=== PATIENT | female | born 1955 | race Caucasian/White ===

== ENCOUNTER 2016-08-03 20:58 | Emergency (ER) | payer OTHER ==
[~2016-08-03] VITALS: Ht 157.5 cm; Wt 105.2 kg
[~2016-08-03 20:58] MED LIST: ABILIFY 10 MG10 MG PO; AMANTADINE HCL100 M2 PO; AMANTADINE HCL100 MG PO; AZITHROMYCIN D250 MG PO; AZITHROMYCIN250 M1 PO; BENZONATATE100 MG PO; BIAXIN FILMTAB500 MG PO; BREO ELLIPTA1 POW PO; CARAFATE1 G1 PO; CARAFATE1 GM/10 ML PO; CEFTIN500 MG PO; CELECOXIB200 M1 PO; CIPROFLOXACIN500 MG PO; CLONAZEPAM0.5 M2 PO; CRESTOR 10MG10 MG PO; CRESTOR10 MG PO; DALIRESP500 MCG PO; DECADRON2 MG PO; DOXYCYCLINE HY100 MG PO; DOXYCYCLINE100 MG PO; DUONEB 3 MG/3 ML3 ML INH; ENDOCET 325 MG-1 TA1 PO; FLEXERIL10 MG PO; FUROSEMIDE20 MG PO; INCRUSE ELLI62.5 MCG INH; K-DUR 20MEQ TA20 MEQ PO; KLONOPIN0.5 MG PO; LATUDA20 MG PO; LEVAQUIN500 MG PO; LEVOTHYROXIN0.075 M1 PO; LEVOTHYROXIN0.088 MG PO; MEDROL DOSEPAK1 PAC PO; MIRTAZAPINE15 M2 PO; MIRTAZAPINE7.5 MG PO; MOMETASONE0.05 MG/Ac NASB; MUCINEX DM 30 M1 TER PO; MYRBETRIQ25 MG PO; MYRBETRIQ50 MG PO; NASONEX0.05 MG/Ac NASB; NEPAFENAC OS; NEURONTIN300 MG PO; OMEPRAZOLE D/R20 MG PO; PRED FORTE 1 ML1 ML OS; PREDNISONE 10MG10 M1 PO; PREDNISONE 20MG20 MG PO; PREDNISONE10 M2 PO; PREDNISONE10 MG PO; PREDNISONE5 MG PO; PREDNISONE50 MG PO; PREVACID 30MG30 MG PO; PROMETH/CODEIN120 ML PO; REGLAN10 MG PO; REMERON 15MG TA15 MG PO; REQUIP1 M1 PO; RIZATRIPTAN BEN10 MG PO; SERTRALINE HCL50 MG PO; SERTRALINE HYDR25 MG PO; SINGULAIR10 M1 PO; SPIRIVA1 PUF INH; SPIRIVA18 MCG; SYMBICORT 160/41 PUF INH; SYMBICORT 16010.2 GM INH; TAMIFLU 75MG75 MG PO; TESSALON PERLE100 M1 PO; TESSALON PERLE100 MG PO; THEOPHYLLINE200 MG PO; TOPAMAX50 M1 PO; TRAMADOL50 MG PO; TRAZODONE HCL100 MG PO; TUDORZA PR400 MCG/Ac INH; ULTRAM(MONOGRAP50 MG PO; VENTOLIN HFA18 GM INH; VERAPAMIL HCL240 M2 PO; VERAPAMIL HCL240 MG PO; VIBRAMYCIN 100100 MG PO; XOPENEX0.63 MG/1 INH/SOL; ZANTAC300 MG PO; ZITHROMAX Z-PA250 M1 PO; ZITHROMAX250 M2 PO; ZOFRAN ODT4 MG PO
--- NOTE | 2016-08-03 21:36 | ED DYSPNEA/ASTHMA COMPLAINT ---
History of Present Illness General Chief Complaint: Dyspnea (COPD, CHF, Other) Stated Complaint: SOB O2 97% AT [employer] Source: patient Exam Limitations: no limitations Vital Signs & Intake/Output Vital Signs & Intake/Output Vital Signs Date Time Temp Pulse Resp B/P Pulse O2 O2 Flow FiO2 Ox Delivery Rate 08/03 2321 97.1 88 18 158/80 97 Room Air 08/03 2155 95 08/03 2134 95 Room Air 08/03 2110 97.5 91 18 173/81 95 Room Air ED Intake and Output 08/04 0000 08/03 1200 Intake Total 0 Output Total Balance 0 Intake, Oral 0 Patient 232 lb Weight Allergies Coded Allergies: peanut (Severe, TONGUE SWELLING, DIFFICULTY BREATHING 01/25/16) pear (Severe, ANAPHYLAXIS 01/25/16) pepper (Severe, PEPPERS - TONGUE SWELLS 01/25/16) walnut (Severe, DIFFICULTY BREATHING 01/25/16) cefazolin (UNKNOWN 01/25/16) cefuroxime (UNKNOWN 01/25/16) ciprofloxacin (ITCHING 01/25/16) clavulanic acid (From Augmentin) (HIVES, RASH 01/25/16) doxycycline (UNKNOWN 01/25/16) erythromycin base (From Erythrocin) (RASH 01/25/16) neomycin (UNKNOWN 01/25/16) penicillin V (UNKNOWN 01/25/16) polymyxin B (HIVES 01/25/16) quetiapine (From Seroquel) (BRIGHT RED & ITCHY 01/25/16) wheat (WHEAT SPROUTS - ITCHY 01/25/16) chocolate flavor (CHOCOLATE - MIGRAINS 01/25/16) lactose (DIARRHEA 01/25/16) Reconcile Medications Albuterol Sulfate (Proair Hfa) 0.09 MG/Actuation CHRISTINA 2 PUF INH 4 TIMES/DAY ASTHMA (Reported) Albuterol Sulfate/Ipratropiu (Duoneb) 3 MG/3 ML NEB 3 ML INH DAILY PRN ASTHMA (Reported) Aripiprazole (Abilify) 10 MG TABLET 1 TAB PO AT BEDTIME ANXIETY (Reported) Budesonide/Formoterol Fumara (Symbicort 160-4.5 Mcg Inhaler) 160 MCG/4.5 MCG PUF 2 PUF INH BID copd (Reported) Celecoxib 200 MG CAPSULE 1 CAP PO DAILY PAIN/INFLAMMATION (Reported) Clonazepam 0.5 MG TABLET 1 TAB PO TID ANXIETY (Reported) 1 IN THE AM, 1 AFTERNOON, 1 AT NIGHT PER PT Levalbuterol HCl (Xopenex) 0.63 MG/3 ML VIAL.NEB 1 Vial INH/DOMINGA TID PRN SHORTNESS OF BREATH Levofloxacin (Levaquin) 500 MG TABLET 1 TAB PO DAILY BRONCHITIS Levothyroxine Sodium (Levothyroxine) 0.088 MG TAB 0.088 MG PO DAILY AC THYROID (Reported) Mirabegron (Myrbetriq) [address] 1 TAB PO DAILY BLADDER (Reported) Mirtazapine 15 MG TABLET 1 TAB PO QPM SLEEP (Reported) Montelukast Sodium 10 MG TABLET 1 TAB PO DAILY ASTHMA (Reported) Prednisone 10 MG TABLET STEROID TAPER (Reported) RANITIDINE HCL (Ranitidine Hydrochloride) 300 MG TAB 1 TAB PO BID GI ( Reported) Rizatriptan Benzoate (Rizatriptan) 10 MG TABLET 1 TAB PO PRN FOR ONSET OF HEADACHE (Reported) Ropinirole HCl (Requip) 1 MG TABLET 1 TAB PO QPM PRN RESTLESS LEGS (Reported) Rosuvastatin Calcium (Crestor) 10 MG TAB 10 MG PO DAILY CHOLESTEROL (Reported ) SERTRALINE HCL (Sertraline Hydrochloride) 50 MG TAB 1 TAB PO DAILY MENTAL HEALTH (Reported) Sucralfate 1 GRAM TABLET 1 TAB PO BID PRN GI (Reported) Tiotropium [place] (Spiriva) (Unknown Strength) CAP.W.DEV (Unknown Dose) UNKNOWN (Reported) Topiramate (Topamax) 50 MG TAB 2 TAB PO BID PRN MIGRAINE (Reported) Umeclidinium [place] (Incruse Ellipta) 62.5 MCG BLST.W.DEV 1 PUFF INH DAILY COPD (Reported) VERAPAMIL HCL (Verapamil ER) [address] 1 TAB PO DAILY MIGRAINES (Reported) Triage Note: REPORTS DIFF BREATHING WITH PERSISTANT COUGH. SHE TOOK HER NEB TX AT HOME WITH NO IMPROVEMENT. Triage Nurses Notes Reviewed? yes Onset: Gradual Duration: day(s): Timing: recent history Severity: mild, moderate Activities at Onset: none Prior Episodes/Possible Cause: occasional episodes Modifying Factors: Improves With: rest. Associated Symptoms: cough, wheezing HPI: 61-year-old woman history of asthma and COPD presents with 3-4 days of cough and wheezing. She states that she was started on Cipro and prednisone by her primary care doctor a few days ago. She's been taking these medicines. She notes that this evening her wheezing got worse. She feels like her cough has not improved. She has no fever chills chest pain or dizziness. She notes that she does have phlegm that's, "stuck in my chest." She notes that her lower extremities are not swollen. She has no orthopnea. Past History Travel History Traveled to [place] past 21 day No Medical History Any Pertinent Medical History? 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 No Review of Systems Review of Systems Constitutional: Reports: no symptoms. EENTM: Reports: no symptoms. Respiratory: Reports: no symptoms. Cardiovascular: Reports: no symptoms. GI: Reports: no symptoms. Genitourinary: Reports: no symptoms. Musculoskeletal: Reports: no symptoms. Skin: Reports: no symptoms. Neurological/Psychological: Reports: no symptoms. Hematologic/Endocrine: Reports: no symptoms. Immunologic/Allergic: Reports: no symptoms. All Other Systems: Reviewed and Negative Physical Exam Physical Exam General Appearance: well developed/nourished, mild distress Head: atraumatic, normal appearance Eyes: Bilateral: normal appearance. Ears, Nose, Throat: normal pharynx, normal ENT inspection Neck: normal inspection Respiratory: normal breath sounds, rhonchi Cardiovascular: regular rate/rhythm Gastrointestinal: normal bowel sounds, soft, non-tender, no organomegaly Extremities: normal inspection Neurologic/Psych: no motor/sensory deficits, awake, alert, oriented x 3 Skin: intact, normal color, warm/dry Core Measures ACS in differential dx? No Severe Sepsis Present: No Septic Shock Present: No Progress Differential Diagnosis: asthma, AMI, bronchitis, CHF, COPD Plan of Care: Orders Procedure Date/time Status TROPONIN LEVEL 08/03 2138 Complete COMPREHENSIVE METABOLIC PANEL 08/03 2138 Complete CBC WITHOUT DIFFERENTIAL 08/03 2138 Complete Laboratory Tests 08/03/162147: Anion Gap 11, Estimated GFR > 60, BUN/Creatinine Ratio 26.3 H, Glucose 138 H, Calcium 8.8, Total Bilirubin 0.2, AST 15, ALT 29, Alkaline Phosphatase 73, Troponin I < 0.01, Total Protein 6.3, Albumin 3.9, Globulin 2.4, Albumin/ Globulin Ratio 1.6, CBC w Diff MAN DIFF ORDERED, RBC 4.25, MCV 83.4, MCH 26.2 L , RDW 18.5 H, MPV 8.8, Gran % 83.8 H, Lymphocytes % 9.9 L, Monocytes % 5.2, Eosinophils % 0.2, Basophils % 0.9, Absolute Granulocytes 7.9 H, Segmented Neutrophils 82 H, Absolute Lymphocytes 0.9 L, Lymphocytes 10 L, Monocytes 7, Absolute Monocytes 0.5, Absolute Eosinophils 0, Basophils 1, Absolute Basophils 0.1, Platelet Estimate ADEQUATE, Polychromasia 1+, Hypochromic-Microcytic 1+, Poikilocytosis 1+, Basophilic Stippling 1+, PUBS MCHC 31.4 L Diagnostic Imaging: Viewed by Me: Radiology Read. Discussed w/RAD: Radiology Read. CXR Impression: no acute abnormality, no infiltrates, normal size heart, normal mediastinum Initial ED EKG: normal axis, normal intervals, normal p-waves, normal QRS complex, normal sinus rhythm Comments: PATIENT: WILLOW VILLA PRESENT AGE: 61 PATIENT ACCOUNT NO: [id number] : 53 LOCATION: [facility] ORDERING PHYSICIAN: KARLA CHEN MD SERVICE DATE: 08/03/16 EXAM TYPE: RAD - XRY-CHEST XRAY, PA AND LATERAL EXAMINATION: XR CHEST CLINICAL INFORMATION: Dyspnea. COMPARISON: Chest x-ray 05/22/2016. TECHNIQUE: PA and lateral views of the chest were obtained. FINDINGS: The lungs are hypoinflated but otherwise clear without focal airspace consolidation. No pleural effusions or pneumothoraces are identified. Cardiomediastinal contours are within normal limits. Soft tissues are unremarkable. No acute osseous abnormality is identified. IMPRESSION: No acute pulmonary process. DICTATED BY: OBEY CONNOR MD DATE/TIME DICTATED:08/03/162221 CARD CUTTER HELPER:SIOMARA DATE/TIME TRANSCRIBED:08/03/162221 CONFIDENTIAL, DO NOT COPY WITHOUT APPROPRIATE AUTHORIZATION. <Electronically signed in Other Vendor System> SIGNED BY: OBEY CONNOR MD 08/03/16 224 Departure Departure Disposition: HOME OR SELF CARE Condition: Stable Clinical Impression Primary Impression: Bronchitis Referrals: LILIA MAKI MD (PCP/Family) Departure Forms: Customer Survey General Discharge Information Prescriptions: Current Visit Scripts Levofloxacin (Levaquin) 1 TAB PO DAILY #7 TAB Comments 08/04/2016, 12:10 AM: Patient with benign labs. Chest x-ray negative. She is stable on room air throughout her entire ED stay. I believe that she has a partially treated bacterial bronchitis. She was prescribed Cipro. Given her many allergies, I prescribed Levaquin which has better gram-positive coverage. I encouraged close follow-up. Critical Care Note Critical Care Note Critical Care Time: non-applicable
[2016-08-03 22:03] LABS: ABSOLUTE BASOPHIL COUNT 0.1 /CUMM (0.0-0.2); ABSOLUTE EOSINOPHIL COUNT 0 /CUMM (0.0-0.7); ABSOLUTE GRANULOCYTE CT 7.9 /CUMM (1.4-6.5); ABSOLUTE LYMPH COUNT 0.9 /CUMM (1.2-3.4); ABSOLUTE MONOCYTE COUNT 0.5 /CUMM (0.10-0.60); BASOPHIL % 0.9 % (0.0-2.0); EOSINOPHIL % 0.2 % (0-5); GRANULOCYTE % 83.8 % (42.2-75.2); HEMATOCRIT 35.5 % (37-47); MEAN CORPUSCULAR HGB 26.2 PG (27.0-31.0); MEAN CORPUSCULAR HGB CONC 31.4 G/DL (33.0-37.0); MEAN CORPUSCULAR VOLUME 83.4 FL (81.0-99.0); MEAN PLATELET VOLUME 8.8 FL (7.4-10.4); PLATELET COUNT 287 /CUMM (130-400); RBC DISTRIBUTION WIDTH 18.5 % (11.5-14.5); RED BLOOD CELL CT 4.25 /CUMM (4.20-5.40); WHITE BLOOD CELL COUNT 9.4 /CUMM (4.8-10.8)
--- NOTE | 2016-08-03 22:41 | RADIOLOGY REPORT ---
EXAMINATION: XR CHEST CLINICAL INFORMATION: Dyspnea. COMPARISON: Chest x-ray 05/22/2016. TECHNIQUE: PA and lateral views of the chest were obtained. FINDINGS: The lungs are hypoinflated but otherwise clear without focal airspace consolidation. No pleural effusions or pneumothoraces are identified. Cardiomediastinal contours are within normal limits. Soft tissues are unremarkable. No acute osseous abnormality is identified. IMPRESSION: No acute pulmonary process.
[2016-08-03] MEDS ORDERED: LEVAQUIN500 M1 PO (23:11)
[2016-08-03 23:22] VITALS: BP 158/80
[2016-10-22] MEDS ORDERED: MYRBETRIQ50 M1 PO (11:45)
[2016-10-22] MEDS ORDERED: SPIRIVA18 MCG INH (11:46)
== END 2016-08-03 23:25 ==
LOC: ERH 20:58
PROVIDERS: Pediatrics
DX: J40 Bronchitis, not specified as acute or chronic (principal)
CPT/HCPCS: 1263

== ENCOUNTER 2016-08-06 01:49 | Emergency (ER) | payer OTHER ==
[~2016-08-06 01:49] MED LIST changes: +LEVAQUIN500 M1 PO
--- NOTE | 2016-08-06 02:00 | ED DYSPNEA/ASTHMA COMPLAINT ---
History of Present Illness General Chief Complaint: General Adult Stated Complaint: BIBA DIFF BREATHING Source: patient, old records, EMS Exam Limitations: no limitations Vital Signs & Intake/Output Vital Signs & Intake/Output Vital Signs Date Time Temp Pulse Resp B/P Pulse O2 O2 Flow FiO2 Ox Delivery Rate 08/06 0357 94 08/06 0153 98.8 83 20 139/65 100 Aerosol 6.0L Mask Allergies Coded Allergies: peanut (Severe, TONGUE SWELLING, DIFFICULTY BREATHING 01/25/16) pear (Severe, ANAPHYLAXIS 01/25/16) pepper (Severe, PEPPERS - TONGUE SWELLS 01/25/16) walnut (Severe, DIFFICULTY BREATHING 01/25/16) cefazolin (UNKNOWN 01/25/16) cefuroxime (UNKNOWN 01/25/16) ciprofloxacin (ITCHING 01/25/16) clavulanic acid (From Augmentin) (HIVES, RASH 01/25/16) doxycycline (UNKNOWN 01/25/16) erythromycin base (From Erythrocin) (RASH 01/25/16) neomycin (UNKNOWN 01/25/16) penicillin V (UNKNOWN 01/25/16) polymyxin B (HIVES 01/25/16) quetiapine (From Seroquel) (BRIGHT RED & ITCHY 01/25/16) wheat (WHEAT SPROUTS - ITCHY 01/25/16) chocolate flavor (CHOCOLATE - MIGRAINS 01/25/16) lactose (DIARRHEA 01/25/16) Reconcile Medications Albuterol Sulfate (Proair Hfa) 0.09 MG/Actuation CHRISTINA 2 PUF INH 4 TIMES/DAY ASTHMA (Reported) Albuterol Sulfate/Ipratropiu (Duoneb) 3 MG/3 ML NEB 3 ML INH DAILY PRN ASTHMA (Reported) Aripiprazole (Abilify) 10 MG TABLET 1 TAB PO AT BEDTIME ANXIETY (Reported) Budesonide/Formoterol Fum[place] (Symbicort 160-4.5 Mcg Inhaler) 160 MCG/4.5 MCG PUF 2 PUF INH BID copd (Reported) Celecoxib 200 MG CAPSULE 1 CAP PO DAILY PAIN/INFLAMMATION (Reported) Clonazepam 0.5 MG TABLET 1 TAB PO TID ANXIETY (Reported) 1 IN THE AM, 1 AFTERNOON, 1 AT NIGHT PER PT Levalbuterol HCl (Xopenex) 0.63 MG/3 ML VIAL.NEB 1 Vial INH/DOMINGA TID PRN SHORTNESS OF BREATH Levofloxacin (Levaquin) 500 MG TABLET 1 TAB PO DAILY BRONCHITIS Levothyroxine Sodium (Levothyroxine) 0.088 MG TAB 0.088 MG PO DAILY AC THYROID (Reported) Mirabegron (Myrbetriq) [address] 1 TAB PO DAILY BLADDER (Reported) Mirtazapine 15 MG TABLET 1 TAB PO QPM SLEEP (Reported) Montelukast Sodium 10 MG TABLET 1 TAB PO DAILY ASTHMA (Reported) Prednisone 10 MG TABLET STEROID TAPER (Reported) RANITIDINE HCL (Ranitidine Hydrochloride) 300 MG TAB 1 TAB PO BID GI ( Reported) Rizatriptan Benzoate (Rizatriptan) 10 MG TABLET 1 TAB PO PRN FOR ONSET OF HEADACHE (Reported) Ropinirole HCl (Requip) 1 MG TABLET 1 TAB PO QPM PRN RESTLESS LEGS (Reported) Rosuvastatin Calcium (Crestor) 10 MG TAB 10 MG PO DAILY CHOLESTEROL (Reported ) SERTRALINE HCL (Sertraline Hydrochloride) 50 MG TAB 1 TAB PO DAILY MENTAL HEALTH (Reported) Sucralfate 1 GRAM TABLET 1 TAB PO BID PRN GI (Reported) Tiotropium [place] (Spiriva) (Unknown Strength) CAP.W.DEV (Unknown Dose) UNKNOWN (Reported) Topiramate (Topamax) 50 MG TAB 2 TAB PO BID PRN MIGRAINE (Reported) Umeclidinium [place] (Incruse Ellipta) 62.5 MCG BLST.W.DEV 1 PUFF INH DAILY COPD (Reported) VERAPAMIL HCL (Verapamil ER) [address] 1 TAB PO DAILY MIGRAINES (Reported) Triage Note: TRIAGE: BIBA FROM HOME W/ INC SOB X 1 WEEK, HX COPD, EMPHYSEMA AND ASTHMA. DENIES CP. RA SAT 95% ON EMS ARRIVAL, PLACED ON DUONEB, 02:100% ON CONTINUED DUONEB AT THIS TIME. REPORTS TAKING TESSALON PERLES W/O RELIEF. +COUGH AND SLIGHT EXPIRATORY WHEEZE. Triage Nurses Notes Reviewed? yes HPI: Patient brought in by ambulance for continued difficulty breathing. Patient has a history of asthma and she is currently on a steroid taper as well as antibiotics. Patient has been seen by her primary care physician as well as the emergency department. Patient denies any chest pain or chest tightness. There is no dyspnea on exertion. There is no orthopnea. There are no fevers or chills. There is a nonproductive cough. There is no nausea or vomiting. Upon EMS arrival her original sat was 93%. Patient was given a DuoNeb and her oxygen saturation came up to 100%. Past History Travel History Traveled to [place] past 21 day No Medical History Any Pertinent Medical History? 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 No Review of Systems Review of Systems Constitutional: Reports: no symptoms. EENTM: Reports: no symptoms. Respiratory: Reports: see HPI, wheezing. Cardiovascular: Reports: no symptoms. GI: Reports: no symptoms. Genitourinary: Reports: no symptoms. Musculoskeletal: Reports: no symptoms. Skin: Reports: no symptoms. Neurological/Psychological: Reports: no symptoms. Hematologic/Endocrine: Reports: no symptoms. Immunologic/Allergic: Reports: no symptoms. All Other Systems: Reviewed and Negative Physical Exam Physical Exam General Appearance: well developed/nourished, alert, awake, anxious, mild distress Head: atraumatic Eyes: Bilateral: PERRL, EOMI. Ears, Nose, Throat: normal pharynx, normal ENT inspection, hearing grossly normal Neck: normal inspection, supple, full range of motion, NO STRIDOR Respiratory: chest non-tender, wheezing (EXPIRATORY), NO RESP DISTRESS Cardiovascular: regular rate/rhythm, normal peripheral pulses Gastrointestinal: normal bowel sounds, soft, non-tender, no organomegaly Extremities: normal inspection, normal capillary refill, normal range of motion, no edema Neurologic/Psych: no motor/sensory deficits, awake, alert, oriented x 3, normal mood/affect Skin: intact, normal color, warm/dry Lymphatic: no anterior cervical brendon Core Measures ACS in differential dx? No Severe Sepsis Present: No Septic Shock Present: No Progress Differential Diagnosis: asthma, bronchitis, CHF, COPD, pulmonary embolism, pneumonia, pneumothorax Plan of Care: Orders Procedure Date/time Status COMPREHENSIVE METABOLIC PANEL 08/06 158 Complete CBC WITHOUT DIFFERENTIAL 08/06 158 Complete Laboratory Tests 08/06/16 0334: Anion Gap 10, Estimated GFR 45 L, BUN/Creatinine Ratio 21.7, Glucose 84, Calcium 9.0, Total Bilirubin 0.2, AST 13 L, ALT 27, Alkaline Phosphatase 76, Total Protein 6.3, Albumin 4.0, Globulin 2.3, Albumin/Globulin Ratio 1.7, CBC w Diff MAN DIFF ORDERED, RBC 4.27, MCV 83.5, MCH 26.8 L, RDW 18.6 H, MPV 8.7, Gran % 64.5, Lymphocytes % 22.0, Monocytes % 12.0 H, Eosinophils % 0.4, Basophils % 1.1, Absolute Granulocytes 10.1 H, Segmented Neutrophils 66, Absolute Lymphocytes 3.4, Lymphocytes 24, Monocytes 10 H, Absolute Monocytes 1.9 H, Absolute Eosinophils 0.1, Absolute Basophils 0.2, Platelet Estimate ADEQUATE, Polychromasia 1+, Hypochromic-Microcytic 1+, Poikilocytosis 1+, Basophilic Stippling SLIGHT, Ovalocytes 1+, Stomatocytes FEW, Elliptocytes FEW, PUBS MCHC 32.1 L, Fld Total RBCs Counted 100 Initial ED EKG: none Comments: Patient ambulated to the bathroom without difficulty. Patient with blood cell count is elevated from where it was however she is on steroids currently. Patient is feeling better and wants to go home. Departure Departure Disposition: HOME OR SELF CARE Condition: Stable Clinical Impression Primary Impression: Asthma Secondary Impressions: Bronchitis Referrals: LILIA MAKI MD (PCP/Family) Additional Instructions: Continue the current medical treatment. Return if symptoms worsen or for any concerns. Departure Forms: Customer Survey General Discharge Information Critical Care Note Critical Care Note Critical Care Time: non-applicable
[2016-08-06 03:43] LABS: ABSOLUTE BASOPHIL COUNT 0.2 /CUMM (0.0-0.2); ABSOLUTE EOSINOPHIL COUNT 0.1 /CUMM (0.0-0.7); ABSOLUTE GRANULOCYTE CT 10.1 /CUMM (1.4-6.5); ABSOLUTE LYMPH COUNT 3.4 /CUMM (1.2-3.4); ABSOLUTE MONOCYTE COUNT 1.9 /CUMM (0.10-0.60); BASOPHIL % 1.1 % (0.0-2.0); EOSINOPHIL % 0.4 % (0-5); GRANULOCYTE % 64.5 % (42.2-75.2); HEMATOCRIT 35.7 % (37-47); MEAN CORPUSCULAR HGB 26.8 PG (27.0-31.0); MEAN CORPUSCULAR HGB CONC 32.1 G/DL (33.0-37.0); MEAN CORPUSCULAR VOLUME 83.5 FL (81.0-99.0); MEAN PLATELET VOLUME 8.7 FL (7.4-10.4); PLATELET COUNT 359 /CUMM (130-400); RBC DISTRIBUTION WIDTH 18.6 % (11.5-14.5); RED BLOOD CELL CT 4.27 /CUMM (4.20-5.40)
[2016-08-06 03:47] LABS: WHITE BLOOD CELL COUNT 15.6 /CUMM (4.8-10.8)
[2016-08-06 04:38] VITALS: BP 120/58
[2016-10-22] MEDS ORDERED: MYRBETRIQ50 M1 PO (11:45)
[2016-10-22] MEDS ORDERED: SPIRIVA18 MCG INH (11:46)
== END 2016-08-06 04:40 ==
LOC: ERH 01:49
PROVIDERS: Emergency Medicine
DX: J45.909 Unspecified asthma, uncomplicated (principal); Z87.891 Personal history of nicotine dependence
CPT/HCPCS: 1263

== ENCOUNTER 2016-08-10 21:49 | Emergency (ER) | payer OTHER ==
[~2016-08-10] VITALS: Ht 152.4 cm; Wt 86.2 kg
[2016-08-10 22:51] LABS: ABSOLUTE BASOPHIL COUNT 0 /CUMM (0.0-0.2); ABSOLUTE EOSINOPHIL COUNT 0 /CUMM (0.0-0.7); ABSOLUTE LYMPH COUNT 0.9 /CUMM (1.2-3.4); ABSOLUTE MONOCYTE COUNT 0.3 /CUMM (0.10-0.60); BASOPHIL % 0.4 % (0.0-2.0); EOSINOPHIL % 0 % (0-5); HEMATOCRIT 34.8 % (37-47); MEAN CORPUSCULAR HGB 26.5 PG (27.0-31.0); MEAN CORPUSCULAR HGB CONC 32.1 G/DL (33.0-37.0); MEAN CORPUSCULAR VOLUME 82.7 FL (81.0-99.0); MEAN PLATELET VOLUME 8.9 FL (7.4-10.4); PLATELET COUNT 289 /CUMM (130-400); RBC DISTRIBUTION WIDTH 18.9 % (11.5-14.5); RED BLOOD CELL CT 4.21 /CUMM (4.20-5.40); WHITE BLOOD CELL COUNT 12.3 /CUMM (4.8-10.8)
[2016-08-10 22:59] LABS: GRANULOCYTE % 89.3 % (42.2-75.2)
[2016-08-10 23:04] LABS: PT 10.2 SEC (9.4-12.5); PTT 25 SEC (25-37)
--- NOTE | 2016-08-10 23:31 | RADIOLOGY REPORT ---
EXAMINATION: XR CHEST CLINICAL INFORMATION: Dyspnea COMPARISON: 08/03/2016 and 05/22/2016 chest x-rays TECHNIQUE: 2 views of the chest were obtained. FINDINGS: The cardiomediastinal silhouette is stable and within normal limits. The pulmonary vascularity is unremarkable. Chronic elevation of left diaphragm noted. The lungs are clear. No pleural effusions or pneumothorax. IMPRESSION: No acute cardiopulmonary finding.
--- NOTE | 2016-08-11 00:04 | ED DYSPNEA/ASTHMA COMPLAINT ---
History of Present Illness General Chief Complaint: Dyspnea (COPD, CHF, Other) Stated Complaint: SOB Source: patient Exam Limitations: no limitations Vital Signs & Intake/Output Vital Signs & Intake/Output Vital Signs Date Time Temp Pulse Resp B/P Pulse O2 O2 Flow FiO2 Ox Delivery Rate 08/11 0024 94 08/11 0003 95 Room Air 08/10 2206 98.0 90 18 117/76 96 Room Air ED Intake and Output 08/11 0000 08/10 1200 Intake Total Output Total Balance Patient 190 lb Weight Allergies Coded Allergies: peanut (Severe, TONGUE SWELLING, DIFFICULTY BREATHING 01/25/16) pear (Severe, ANAPHYLAXIS 01/25/16) pepper (Severe, PEPPERS - TONGUE SWELLS 01/25/16) walnut (Severe, DIFFICULTY BREATHING 01/25/16) cefazolin (UNKNOWN 01/25/16) cefuroxime (UNKNOWN 01/25/16) ciprofloxacin (ITCHING 01/25/16) clavulanic acid (From Augmentin) (HIVES, RASH 01/25/16) doxycycline (UNKNOWN 01/25/16) erythromycin base (From Erythrocin) (RASH 01/25/16) neomycin (UNKNOWN 01/25/16) penicillin V (UNKNOWN 01/25/16) polymyxin B (HIVES 01/25/16) quetiapine (From Seroquel) (BRIGHT RED & ITCHY 01/25/16) wheat (WHEAT SPROUTS - ITCHY 01/25/16) chocolate flavor (CHOCOLATE - MIGRAINS 01/25/16) lactose (DIARRHEA 01/25/16) Reconcile Medications Albuterol Sulfate (Proair Hfa) 0.09 MG/Actuation CHRISTINA 2 PUF INH 4 TIMES/DAY ASTHMA (Reported) Albuterol Sulfate/Ipratropiu (Duoneb) 3 MG/3 ML NEB 3 ML INH DAILY PRN ASTHMA (Reported) Aripiprazole (Abilify) 10 MG TABLET 1 TAB PO AT BEDTIME ANXIETY (Reported) Budesonide/Formoterol Fumara (Symbicort 160-4.5 Mcg Inhaler) 160 MCG/4.5 MCG PUF 2 PUF INH BID copd (Reported) Celecoxib 200 MG CAPSULE 1 CAP PO DAILY PAIN/INFLAMMATION (Reported) Clonazepam 0.5 MG TABLET 1 TAB PO TID ANXIETY (Reported) 1 IN THE AM, 1 AFTERNOON, 1 AT NIGHT PER PT Levalbuterol HCl (Xopenex) 0.63 MG/3 ML VIAL.NEB 1 Vial INH/DOMINGA TID PRN SHORTNESS OF BREATH Levofloxacin (Levaquin) 500 MG TABLET 1 TAB PO DAILY BRONCHITIS Levothyroxine Sodium (Levothyroxine) 0.088 MG TAB 0.088 MG PO DAILY AC THYROID (Reported) Mirabegron (Myrbetriq) [address] 1 TAB PO DAILY BLADDER (Reported) Mirtazapine 15 MG TABLET 1 TAB PO QPM SLEEP (Reported) Montelukast Sodium 10 MG TABLET 1 TAB PO DAILY ASTHMA (Reported) Prednisone 10 MG TABLET STEROID TAPER (Reported) Promethazine HCl/Codeine (Promethazine-Codeine Syrup) 6.25 MG-10 MG/5 ML SYRUP 5 ML PO Q4-6 PRN SEVERE COUGH ONE HUNDRED TWENTY... [id number] RANITIDINE HCL (Ranitidine Hydrochloride) 300 MG TAB 1 TAB PO BID GI ( Reported) Rizatriptan Benzoate (Rizatriptan) 10 MG TABLET 1 TAB PO PRN FOR ONSET OF HEADACHE (Reported) Ropinirole HCl (Requip) 1 MG TABLET 1 TAB PO QPM PRN RESTLESS LEGS (Reported) Rosuvastatin Calcium (Crestor) 10 MG TAB 10 MG PO DAILY CHOLESTEROL (Reported ) SERTRALINE HCL (Sertraline Hydrochloride) 50 MG TAB 1 TAB PO DAILY MENTAL HEALTH (Reported) Sucralfate 1 GRAM TABLET 1 TAB PO BID PRN GI (Reported) Tiotropium [place] (Spiriva) (Unknown Strength) CAP.W.DEV (Unknown Dose) UNKNOWN (Reported) Topiramate (Topamax) 50 MG TAB 2 TAB PO BID PRN MIGRAINE (Reported) Umeclidinium [place] (Incruse Ellipta) 62.5 MCG BLST.W.DEV 1 PUFF INH DAILY COPD (Reported) VERAPAMIL HCL (Verapamil ER) [address] 1 TAB PO DAILY MIGRAINES (Reported) Triage Note: PT TO TRIAGE WITH C/O SOB. PT HAS BEEN SICK WITH BRONCHITIS x2WEEK, HAS BEEN ON 3 ANIBIOTICS AND ON PREDNISONE. O2SAT 96% ON RA. PT AFEBRILE, VSS. ALSO PT REPORTS CHEST TIGHTNES SINCE THIS AFTERNOON. PT TO [place] FOR EKG. Triage Nurses Notes Reviewed? yes Onset: Abrupt Duration: week(s):, waxing and waning Timing: recent history Severity: moderate Activities at Onset: none Prior Episodes/Possible Cause: occasional episodes Modifying Factors: Improves With: rest. Associated Symptoms: cough, wheezing HPI: 61-year-old woman history of COPD presents with 3 week history of wheezing and cough. She states that she has been on 3 courses of antibiotics and 2 courses of steroids. She states that she continues to wheeze. She has no lower external swelling. She has no fever chills or sputum production. She states that she feels better after a neb. She also feels better after taking cough medicine with codeine. She noted slight chest pressure over the past several days. Past History Travel History Traveled to [place] past 21 day No Medical History Any Pertinent Medical History? see below for history Neurological: migraine EENT: glaucoma Cardiovascular: hyperlipidemia, HYPOTENSION Respiratory: asthma, COPD, emphysema Gastrointestinal: diverticulitis, GERD, hiatal hernia, irritable bowel syndrome Hepatic: NONE Renal: NONE Musculoskeletal: NONE Psychiatric: anxiety, depression Endocrine: hypothyroidism Blood Disorders: NONE Cancer(s): NONE PROJECT CONSULTANT/Reproductive: NONE History of MRSA: No History of VRE: No History of CDIFF: No Tetanus Vaccine: 12/22/13 Surgical History Surgical History: non-contributory Psychosocial History Who do you live with Family Services at Home None What is your primary language Urdu Tobacco Use: Never used Family History Family History, If Any: MOTHER FH: myocardial infarction FATHER FH: CAD (coronary artery disease) FH: diabetes mellitus FH: HTN (hypertension) FH: stroke Hx Contributory? No Review of Systems Review of Systems Constitutional: Reports: no symptoms. EENTM: Reports: no symptoms. Respiratory: Reports: no symptoms. Cardiovascular: Reports: no symptoms. GI: Reports: no symptoms. Genitourinary: Reports: no symptoms. Musculoskeletal: Reports: no symptoms. Skin: Reports: no symptoms. Neurological/Psychological: Reports: no symptoms. Hematologic/Endocrine: Reports: no symptoms. Immunologic/Allergic: Reports: no symptoms. All Other Systems: Reviewed and Negative Physical Exam Physical Exam General Appearance: well developed/nourished, mild distress Head: atraumatic, normal appearance Eyes: Bilateral: normal appearance. Ears, Nose, Throat: normal pharynx, normal ENT inspection Neck: normal inspection, supple Respiratory: wheezing, mild bilateral wheeze. Cardiovascular: regular rate/rhythm Gastrointestinal: normal bowel sounds, soft, non-tender, no organomegaly Extremities: normal inspection, normal capillary refill, normal range of motion Neurologic/Psych: no motor/sensory deficits, awake, alert, oriented x 3 Skin: intact, normal color, warm/dry Core Measures ACS in differential dx? No Severe Sepsis Present: No Septic Shock Present: No Progress Differential Diagnosis: asthma, AMI, bronchitis Plan of Care: Orders Procedure Date/time Status TROPONIN LEVEL 08/10 2225 Complete PARTIAL THROMBOPLASTIN TIME 08/10 2225 Complete PROTHROMBIN TIME 08/10 2225 Complete LACTIC ACID 08/10 2225 Complete COMPREHENSIVE METABOLIC PANEL 08/10 2225 Complete CBC WITHOUT DIFFERENTIAL 08/10 2225 Complete EKG 08/10 2213 Active Laboratory Tests 08/10/162235: Anion Gap 9, Estimated GFR > 60, BUN/Creatinine Ratio 23.8, Glucose 131 H, Lactic Acid 2.3 H, Calcium 8.7, Total Bilirubin 0.3, AST 14, ALT 22, Alkaline Phosphatase 73, Troponin I < 0.01, Total Protein 6.1 L, Albumin 3.7, Globulin 2.4, Albumin/Globulin Ratio 1.5, PT 10.2, INR 0.97, APTT 25, CBC w Diff NO MAN DIFF REQ, RBC 4.21, MCV 82.7, MCH 26.5 L, RDW 18.9 H, MPV 8.9, Gran % 89.3 H, Lymphocytes % 7.6 L, Monocytes % 2.7, Eosinophils % 0, Basophils % 0.4, Absolute Granulocytes 11.0 H, Absolute Lymphocytes 0.9 L, Absolute Monocytes 0.3, Absolute Eosinophils 0, Absolute Basophils 0, PUBS MCHC 32.1 L Diagnostic Imaging: Viewed by Me: Radiology Read. Discussed w/RAD: Radiology Read. CXR Impression: no acute abnormality, no infiltrates, normal size heart, normal mediastinum Initial ED EKG: normal axis, normal intervals, normal p-waves, normal QRS complex, normal sinus rhythm Comments: PATIENT: WILLOW VILLA PRESENT AGE: 61 PATIENT ACCOUNT NO: [id number] : 53 LOCATION: [facility] ORDERING PHYSICIAN: KARLA CHEN MD SERVICE DATE: 08/10/16 EXAM TYPE: RAD - XRY-CHEST XRAY, PA AND LATERAL EXAMINATION: XR CHEST CLINICAL INFORMATION: Dyspnea COMPARISON: 08/03/2016 and 05/22/2016 chest x-rays TECHNIQUE: 2 views of the chest were obtained. FINDINGS: The cardiomediastinal silhouette is stable and within normal limits. The pulmonary vascularity is unremarkable. Chronic elevation of left diaphragm noted. The lungs are clear. No pleural effusions or pneumothorax. IMPRESSION: No acute cardiopulmonary finding. DICTATED BY: FELICIA FARLEY MD DATE/TIME DICTATED:08/10/162322 TEXTBOOK ASSOCIATE:SIOMARA DATE/TIME TRANSCRIBED:08/10/162322 CONFIDENTIAL, DO NOT COPY WITHOUT APPROPRIATE AUTHORIZATION. <Electronically signed in Other Vendor System> SIGNED BY: FELICIA FARLEY MD 08/10/16 2331 Departure Departure Disposition: HOME OR SELF CARE Condition: Stable Clinical Impression Primary Impression: Bronchitis Secondary Impressions: Bronchospasm Referrals: LILIA MAKI MD (PCP/Family) Departure Forms: Customer Survey General Discharge Information Prescriptions: Current Visit Scripts Levalbuterol HCl (Xopenex) 1 Vial INH/DOMINGA TID PRN SHORTNESS OF BREATH #72 ML Promethazine HCl/Codeine (Promethazine-Codeine Syrup) 5 ML PO Q4-6 PRN SEVERE COUGH #120 ML ONE HUNDRED TWENTY... [id number] Comments 08/11/16, 0:19.... discussed at length. She would like to go home. She does not wish to stay for repeat troponin/lactic acid... risks discussed, including risk of morbidity and ... She will take levalbuterol around the clock and follow up with her neck band maker tomorrow. Critical Care Note Critical Care Note Critical Care Time: non-applicable
[2016-08-11] MEDS ORDERED: PROMETHAZINE-C118 ML PO (00:16)
[2016-08-11] MEDS ORDERED: XOPENEX0.63 MG/1 INH/SOL (00:16)
[2016-08-11 01:02] VITALS: BP 116/78
[2016-10-22] MEDS ORDERED: MYRBETRIQ50 M1 PO (11:45)
[2016-10-22] MEDS ORDERED: SPIRIVA18 MCG INH (11:46)
== END 2016-08-11 01:01 ==
LOC: ERH 21:49
PROVIDERS: Emergency Medicine
DX: J40 Bronchitis, not specified as acute or chronic (principal); R07.89 Other chest pain
CPT/HCPCS: 1263; 93005; 93010

== ENCOUNTER 2016-10-02 04:24 | Emergency (ER) | payer OTHER ==
[~2016-10-02 04:24] MED LIST changes: +PROMETHAZINE-C118 ML PO
[2016-10-02] MEDS ORDERED: PERCOCET 5-3251 EACH PO (04:33)
--- NOTE | 2016-10-02 04:33 | ED UPPER/LOWER EXTREMITY COMPL ---
History of Present Illness General Chief Complaint: Shoulder Injury Stated Complaint: "I'M IN PAIN" RT SHOULDER X'S COUPLE HRS Source: patient, family, old records Exam Limitations: no limitations Vital Signs & Intake/Output Vital Signs & Intake/Output . Allergies Coded Allergies: peanut (Severe, TONGUE SWELLING, DIFFICULTY BREATHING 01/25/16) pear (Severe, ANAPHYLAXIS 01/25/16) pepper (Severe, PEPPERS - TONGUE SWELLS 01/25/16) walnut (Severe, DIFFICULTY BREATHING 01/25/16) cefazolin (UNKNOWN 01/25/16) cefuroxime (UNKNOWN 01/25/16) ciprofloxacin (ITCHING 01/25/16) clavulanic acid (From Augmentin) (HIVES, RASH 01/25/16) doxycycline (UNKNOWN 01/25/16) erythromycin base (From Erythrocin) (RASH 01/25/16) neomycin (UNKNOWN 01/25/16) penicillin V (UNKNOWN 01/25/16) polymyxin B (HIVES 01/25/16) quetiapine (From Seroquel) (BRIGHT RED & ITCHY 01/25/16) wheat (WHEAT SPROUTS - ITCHY 01/25/16) chocolate flavor (CHOCOLATE - MIGRAINS 01/25/16) lactose (DIARRHEA 01/25/16) Reconcile Medications Albuterol Sulfate (Proair Hfa) 0.09 MG/Actuation CHRISTINA 2 PUF INH 4 TIMES/DAY ASTHMA (Reported) Albuterol Sulfate/Ipratropiu (Duoneb) 3 MG/3 ML NEB 3 ML INH DAILY PRN ASTHMA (Reported) Aripiprazole (Abilify) 10 MG TABLET 1 TAB PO AT BEDTIME ANXIETY (Reported) Budesonide/Formoterol Fumara (Symbicort 160-4.5 Mcg Inhaler) 160 MCG/4.5 MCG PUF 2 PUF INH BID copd (Reported) Celecoxib 200 MG CAPSULE 1 CAP PO DAILY PAIN/INFLAMMATION (Reported) Clonazepam 0.5 MG TABLET 1 TAB PO TID ANXIETY (Reported) 1 IN THE AM, 1 AFTERNOON, 1 AT NIGHT PER PT Levalbuterol HCl (Xopenex) 0.63 MG/3 ML VIAL.NEB 1 Vial INH/DOMINGA TID PRN SHORTNESS OF BREATH Levofloxacin (Levaquin) 500 MG TABLET 1 TAB PO DAILY BRONCHITIS Levothyroxine Sodium (Levothyroxine) 0.088 MG TAB 0.088 MG PO DAILY AC THYROID (Reported) Mirabegron (Myrbetriq) [address] 1 TAB PO DAILY BLADDER (Reported) Mirtazapine 15 MG TABLET 1 TAB PO QPM SLEEP (Reported) Montelukast Sodium 10 MG TABLET 1 TAB PO DAILY ASTHMA (Reported) Oxycodone HCl/Acetaminophen (Percocet 5-325 MG Tablet) 5 MG-325 MG TABLET 1 TAB PO 4XDP PRN PAIN six...[id number] Prednisone 10 MG TABLET STEROID TAPER (Reported) Promethazine HCl/Codeine (Promethazine-Codeine Syrup) 6.25 MG-10 MG/5 ML SYRUP 5 ML PO Q4-6 PRN SEVERE COUGH ONE HUNDRED TWENTY... [id number] RANITIDINE HCL (Ranitidine Hydrochloride) 300 MG TAB 1 TAB PO BID GI ( Reported) Rizatriptan Benzoate (Rizatriptan) 10 MG TABLET 1 TAB PO PRN FOR ONSET OF HEADACHE (Reported) Ropinirole HCl (Requip) 1 MG TABLET 1 TAB PO QPM PRN RESTLESS LEGS (Reported) Rosuvastatin Calcium (Crestor) 10 MG TAB 10 MG PO DAILY CHOLESTEROL (Reported ) SERTRALINE HCL (Sertraline Hydrochloride) 50 MG TAB 1 TAB PO DAILY MENTAL HEALTH (Reported) Sucralfate 1 GRAM TABLET 1 TAB PO BID PRN GI (Reported) Tiotropium [place] (Spiriva) (Unknown Strength) CAP.W.DEV (Unknown Dose) UNKNOWN (Reported) Topiramate (Topamax) 50 MG TAB 2 TAB PO BID PRN MIGRAINE (Reported) Umeclidinium [place] (Incruse Ellipta) 62.5 MCG BLST.W.DEV 1 PUFF INH DAILY COPD (Reported) VERAPAMIL HCL (Verapamil ER) [address] 1 TAB PO DAILY MIGRAINES (Reported) Triage Nurses Notes Reviewed? yes Onset: Gradual Duration: week(s):, waxing and waning Severity: mild, moderate Pain/Injury Location: Right: Shoulder. Method of Injury: "I've had a chronic problem... and then I was injected a few days ago." Modifying Factors: Worsens With: movement. Associated Symptoms: right shoulder pain HPI: 61 yo woman with chronic rotator cuff tendonitis had an injection 3 days ago, now presents with continued right shoulder pain, such that she could not sleep. She notes pain with movement, but no fever, chills, swelling, redness. She is otherwise well. Past History Medical History Any Pertinent Medical History? see below for history Neurological: migraine EENT: glaucoma Cardiovascular: hyperlipidemia, HYPOTENSION Respiratory: asthma, COPD, emphysema Gastrointestinal: diverticulitis, GERD, hiatal hernia, irritable bowel syndrome Hepatic: NONE Renal: NONE Musculoskeletal: right rotator cuff tendonitis Psychiatric: anxiety, depression Endocrine: hypothyroidism Blood Disorders: NONE Cancer(s): NONE FISH STRAIGHTENER/Reproductive: NONE History of MRSA: No History of VRE: No History of CDIFF: No Tetanus Vaccine: 12/22/13 Surgical History Surgical History: non-contributory Psychosocial History Who do you live with Family Services at Home None What is your primary language Czech Family History Family History, If Any: MOTHER FH: myocardial infarction FATHER FH: CAD (coronary artery disease) FH: diabetes mellitus FH: HTN (hypertension) FH: stroke Hx Contributory? No Review of Systems Review of Systems Constitutional: Reports: no symptoms. EENTM: Reports: no symptoms. Respiratory: Reports: no symptoms. Cardiovascular: Reports: no symptoms. Gastrointestinal/Abdominal: Reports: no symptoms. Genitourinary: Reports: no symptoms. Musculoskeletal: Reports: no symptoms. Skin: Reports: no symptoms. Neurological/Psychological: Reports: no symptoms. Hematologic/Endocrine: Reports: no symptoms. Immunological: Reports: no symptoms. All Other Systems: Reviewed and Negative Physical Exam Physical Exam General Appearance: well developed/nourished, mild distress Head: atraumatic Ears, Nose, Throat: normal pharynx, normal ENT inspection, hearing grossly normal Neck: normal inspection, supple Cardiovascular/Respiratory: regular rate/rhythm Back: normal inspection Shoulder Right: punctate lesion at site of injection. no erythema/focal tenderness/infection. pain elicited with rotator cuff maneuvers. No focal bony tenderness. Skin: intact, normal color, warm/dry Progress Differential Diagnosis: sprain vs labral disease vs tendinopathy vs other. Plan of Care: Current Medications Sig/Sonia Start time Last Medication Dose Stop Time Status Admin Oxycodone/ 1 TAB ONCE ONE 10/02 0445 UNVr Acetaminophen 10/02 0446 (Percocet) Departure Departure Disposition: HOME OR SELF CARE Condition: Stable Clinical Impression Primary Impression: Rotator cuff tendonitis Referrals: LILIA MAKI MD (PCP/Family) Departure Forms: Customer Survey General Discharge Information Prescriptions: Current Visit Scripts Oxycodone HCl/Acetaminophen (Percocet 5-325 MG Tablet) 1 TAB PO 4XDP PRN PAIN #6 TAB six...[id number] Comments sling placed by nursing team... encouraged close follow up with dr. fontenot, her orthopedist.
[2016-10-02 04:39] VITALS: BP 128/63
[2016-10-22] MEDS ORDERED: MYRBETRIQ50 M1 PO (11:45)
[2016-10-22] MEDS ORDERED: SPIRIVA18 MCG INH (11:46)
== END 2016-10-02 04:47 ==
LOC: ERH 04:24
DX: M75.81 Other shoulder lesions, right shoulder (principal)

== ENCOUNTER 2016-10-11 03:59 | Emergency (ER) | payer OTHER ==
[~2016-10-11] VITALS: Ht 157.5 cm; Wt 106.6 kg
[~2016-10-11 03:59] MED LIST changes: +PERCOCET 5-3251 EACH PO
[2016-10-11 04:15] VITALS: BP 125/85
--- NOTE | 2016-10-11 04:46 | ED INFLUENZA/URI COMPLAINT ---
History of Present Illness General Chief Complaint: General Adult Stated Complaint: BAD COUGH PER PT Source: patient, family Exam Limitations: no limitations Vital Signs & Intake/Output Vital Signs & Intake/Output Vital Signs Date Time Temp Pulse Resp B/P Pulse O2 O2 Flow FiO2 Ox Delivery Rate 10/11 0415 98.9 85 16 125/85 98 Room Air Allergies Coded Allergies: peanut (Severe, TONGUE SWELLING, DIFFICULTY BREATHING 01/25/16) pear (Severe, ANAPHYLAXIS 01/25/16) pepper (Severe, PEPPERS - TONGUE SWELLS 01/25/16) walnut (Severe, DIFFICULTY BREATHING 01/25/16) cefazolin (UNKNOWN 01/25/16) cefuroxime (UNKNOWN 01/25/16) ciprofloxacin (ITCHING 01/25/16) clavulanic acid (From Augmentin) (HIVES, RASH 01/25/16) doxycycline (UNKNOWN 01/25/16) erythromycin base (From Erythrocin) (RASH 01/25/16) neomycin (UNKNOWN 01/25/16) penicillin V (UNKNOWN 01/25/16) polymyxin B (HIVES 01/25/16) quetiapine (From Seroquel) (BRIGHT RED & ITCHY 01/25/16) wheat (WHEAT SPROUTS - ITCHY 01/25/16) chocolate flavor (CHOCOLATE - MIGRAINS 01/25/16) lactose (DIARRHEA 01/25/16) Reconcile Medications Albuterol Sulfate (Proair Hfa) 0.09 MG/Actuation CHRISTINA 2 PUF INH 4 TIMES/DAY ASTHMA (Reported) Albuterol Sulfate/Ipratropiu (Duoneb) 3 MG/3 ML NEB 3 ML INH DAILY PRN ASTHMA (Reported) Aripiprazole (Abilify) 10 MG TABLET 1 TAB PO AT BEDTIME ANXIETY (Reported) Budesonide/Formoterol Fumara (Symbicort 160-4.5 Mcg Inhaler) 160 MCG/4.5 MCG PUF 2 PUF INH BID copd (Reported) Celecoxib 200 MG CAPSULE 1 CAP PO DAILY PAIN/INFLAMMATION (Reported) Clonazepam 0.5 MG TABLET 1 TAB PO TID ANXIETY (Reported) 1 IN THE AM, 1 AFTERNOON, 1 AT NIGHT PER PT Levalbuterol HCl (Xopenex) 0.63 MG/3 ML VIAL.NEB 1 Vial INH/DOMINGA TID PRN SHORTNESS OF BREATH Levofloxacin (Levaquin) 500 MG TABLET 1 TAB PO DAILY BRONCHITIS Levofloxacin (Levaquin) 500 MG TABLET 1 TAB PO DAILY bronchitis pt reports she has taken levaquin in the past without problem. Levothyroxine Sodium (Levothyroxine) 0.088 MG TAB 0.088 MG PO DAILY AC THYROID (Reported) Methylprednisolone. (Medrol) 4 MG TAB.DS.PK 1 DP PO AD bronchitis 6 on day 1 then reduce by one tablet daily until gone Mirabegron (Myrbetriq) [address] TAB PO DAILY BLADDER (Reported) Mirtazapine 15 MG TABLET 1 TAB PO QPM SLEEP (Reported) Montelukast Sodium 10 MG TABLET 1 TAB PO DAILY ASTHMA (Reported) Oxycodone HCl/Acetaminophen (Percocet 5-325 MG Tablet) 5 MG-325 MG TABLET 1 TAB PO 4XDP PRN PAIN six...[id number] Prednisone 10 MG TABLET STEROID TAPER (Reported) Promethazine HCl/Codeine (Promethazine-Codeine Syrup) 6.25 MG-10 MG/5 ML SYRUP 5 ML PO Q4-6 PRN SEVERE COUGH ONE HUNDRED TWENTY... [id number] RANITIDINE HCL (Ranitidine Hydrochloride) 300 MG TAB 1 TAB PO BID GI ( Reported) Rizatriptan Benzoate (Rizatriptan) 10 MG TABLET 1 TAB PO PRN FOR ONSET OF HEADACHE (Reported) Ropinirole HCl (Requip) 1 MG TABLET 1 TAB PO QPM PRN RESTLESS LEGS (Reported) Rosuvastatin Calcium (Crestor) 10 MG TAB 10 MG PO DAILY CHOLESTEROL (Reported ) SERTRALINE HCL (Sertraline Hydrochloride) 50 MG TAB 1 TAB PO DAILY MENTAL HEALTH (Reported) Sucralfate 1 GRAM TABLET 1 TAB PO BID PRN GI (Reported) Tiotropium [place] (Spiriva) (Unknown Strength) CAP.W.DEV (Unknown Dose) UNKNOWN (Reported) Topiramate (Topamax) 50 MG TAB 2 TAB PO BID PRN MIGRAINE (Reported) Umeclidinium [place] (Incruse Ellipta) 62.5 MCG BLST.W.DEV 1 PUFF INH DAILY COPD (Reported) VERAPAMIL HCL (Verapamil ER) [address] 1 TAB PO DAILY MIGRAINES (Reported) Triage Note: "DIOGO BEEN COUGHING ALOT." COUGH NOTED IN TRIAGE. DENIES FEVERS AT HOME. PT REPORTS SHE HAS BEEN COUGHING A LOT FOR 1 WEEK. 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 AFEBRILE IN TRIAGE. Triage Nurses Notes Reviewed? yes Onset: Gradual Duration: day(s):, waxing and waning Timing: recent history Severity: moderate Prior Episodes/Possible Cause: frequent episodes Modifying Factors: Improves With: rest. Associated Symptoms: cough, wheezing HPI: 61 yo woman h/o copd/asthma presents with cough, phlegm, wheezing, consistent with prior episodes of her bronchitis exacerbations. She notes that the recent changes in temperature may be inciting hersymptoms. She is otherwise well. No chest pain, nausea, vomiting, diarrhea. Past History Travel History Traveled to [place] past 21 day No Medical History Any Pertinent Medical History? 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 No Review of Systems Review of Systems Constitutional: Reports: no symptoms. EENTM: Reports: no symptoms. Respiratory: Reports: no symptoms. Cardiovascular: Reports: no symptoms. GI: Reports: no symptoms. Genitourinary: Reports: no symptoms. Musculoskeletal: Reports: no symptoms. Skin: Reports: no symptoms. Neurological/Psychological: Reports: no symptoms. Hematologic/Endocrine: Reports: no symptoms. Immunologic/Allergic: Reports: no symptoms. All Other Systems: Reviewed and Negative Physical Exam Physical Exam General Appearance: well developed/nourished, mild distress Head: atraumatic, normal appearance Eyes: Bilateral: normal appearance. Ears, Nose, Throat: normal ENT inspection, moist mucous membrane Neck: normal inspection, supple, full range of motion Respiratory: wheezing Cardiovascular: regular rate/rhythm Gastrointestinal: normal bowel sounds, soft, non-tender, no organomegaly Back: normal inspection Extremities: normal inspection, normal capillary refill, normal range of motion, no edema Neurologic/Psych: no motor/sensory deficits, awake, alert, oriented x 3 Skin: intact, normal color, warm/dry Core Measures Severe Sepsis Present: No Septic Shock Present: No Progress Differential Diagnosis: pharyngitis, sinusitis, bronchitis Plan of Care: Current Medications Sig/Sonia Start time Last Medication Dose Stop Time Status Admin Albuterol Sulfate 3 ML ONCE ONE 10/11 050 UNVr (Proventil) 10/11 050 Dexamethasone 8 MG ONCE ONE 10/11 499 UNVr (Decadron) 10/11 050 Ipratropium [place] 2.5 ML ONCE ONE 10/11 499 UNVr (Atrovent) 10/11 050 Initial ED EKG: none Departure Departure Disposition: HOME OR SELF CARE Condition: Stable Clinical Impression Primary Impression: Bronchitis Referrals: LILIA MAKI MD (PCP/Family) Departure Forms: Customer Survey General Discharge Information Prescriptions: Current Visit Scripts Methylprednisolone. (Medrol) 1 DP PO AD #1 DP 6 on day 1 then reduce by one tablet daily until gone Levofloxacin (Levaquin) 1 TAB PO DAILY #10 TAB pt reports she has taken levaquin in the past without problem. Comments pt stable, doing well... duoneb given.. pt stable for discharge.
[2016-10-11] MEDS ORDERED: LEVAQUIN500 M1 PO (04:49)
[2016-10-11] MEDS ORDERED: MEDROL4 M2 PO (04:49)
[2016-10-11] MEDS ORDERED: CLONAZEPAM0.5 M2 PO (05:14)
[2016-10-11] MEDS ORDERED: ABILIFY10 M1 PO (05:14)
[2016-10-11] MEDS ORDERED: CRESTOR10 M1 PO (05:15)
[2016-10-11] MEDS ORDERED: VERAPAMIL ER240 M1 PO (05:15)
[2016-10-22] MEDS ORDERED: MYRBETRIQ50 M1 PO (11:45)
[2016-10-22] MEDS ORDERED: SPIRIVA18 MCG INH (11:46)
== END 2016-10-11 05:40 ==
LOC: ERH 03:59
DX: J40 Bronchitis, not specified as acute or chronic (principal)
CPT/HCPCS: 1263; J1100

== ENCOUNTER 2016-10-29 02:23 | Observation (INO) | payer OTHER ==
[~2016-10-29] VITALS: Ht 157.5 cm; Wt 102.1 kg
[~2016-10-29 02:23] MED LIST changes: +ABILIFY10 M1 PO; +CRESTOR10 M1 PO; +MEDROL4 M2 PO; +MYRBETRIQ50 M1 PO; +SPIRIVA18 MCG INH; +VERAPAMIL ER240 M1 PO
--- NOTE | 2016-10-29 12:55 | Operative Report ---
Operative/Inv Procedure Report Surgery Date: 10/29/16 Name of Procedure: Shoulder arthroscopic rotator cuff repair Right shoulder arthroscopic glenohumeral debridement with biceps tenotomy Pre-Operative Diagnosis: Right shoulder re-tear rotator cuff Post-Operative Diagnosis: Right shoulder re-tear rotator cuff Right shoulder biceps tenosynovium-itis Estimated Blood Loss: none Surgeon/Traffic Signal Repairer: KENYA BARRETO,ALONDRA Combs Anesthesia: general endotracheal tube IV Fluids: See anesthesia record Specimens: None Complications: None Condition: Stable Operative Indication: Patient is a 60-year-old female who underwent arthroscopic rotator cuff repair 1 year ago. She presented to the office a couple months ago with increasing pain in the right shoulder. An MRI was performed which shows slight and small re- tear of the supraspinatus tendon. She was indicated for surgical repair. A skilled set of hands was necessary provided by physician corporate administrative assistant Hunter Combs weighted with retraction camera positioning and suture management throughout the case. Operative/Procedure Note Note: Once informed consent was obtained and the correct limb was identified patient brought to operative room placed on table supine position. After administration of general endotracheal anesthesia the patient was placed in a beachchair position for right shoulder arthroscopy. The right upper extremity was prepped and draped in usual sterile fashion. To begin the procedure standard arthroscopic portals made posteriorly and the arthroscope was introduced into the glenoid humeral joint. Diagnostic arthroscopy was carried out. Subscapularis tendon was intact. The humeral head showed grade 1-2 changes of the cartilage surface. The glenoid showed grade 1 changes as well. The labrum was intact anteriorly posterior leg. There was negative drive-through sign. Biceps tendon was frayed and in irritated. The articular surface of the supraspinatus and infraspinous tendon had some thinning but and there was a small full-thickness tear of the supraspinous tendon. An anterior portal was made lateral to the coracoid and a shaving device was introduced. Debridement of the glenohumeral joint was done and a biceps tenotomy was performed. At this point the scope was taken to the subacromial space and a bursectomy was performed. The supraspinatus tear was identified and the bare spot of the humeral head was abraded to bleeding bony surface. 2 horizontal mattress sutures were placed into the supraspinatus and infraspinous tendons. On the bare spot of the greater tuberosity 2 swivel lock anchors were placed with sutures passed through the swivel lock anchors. This afforded an excellent repair of the rotator cuff tear. Once this was done the shoulder was taken through a range of motion and the repair was very stable. The shoulder was irrigated with arthroscopic saline solution and the R scopic entrance removed. The R scopic portals were closed with 3-0 nylon interrupted sutures. Sterile dressing and sling was applied and the patient was awakened taken recovery room in stable condition.
[2016-10-29 14:30] VITALS: BP 110/80
--- NOTE | 2016-10-29 14:30 | NUR ---
PT ARRIVED TO FLOOR AT 1430 FROM PACU VIA JOHN CHAIR. PT A/V/OX3. ON 3LNC. HAS HX OF COPD, DOES NOT WEAR O2 AT HOME. PT TO BE ON CONTINUOUS OBS MONITORING D/T COMPLICATION WITH SX. RESP PAGED AND TO COME UP TO SET UP. PT VITALS STABLE. O2 96% ON 3NC. SLING TO R ARM. C/O TINGLING TO R HAND DUE TO NERVE BLOCK. OTHERWISE +PULSES. NO HX OF FALLS. INSTRUCTED TO USE CALL GATES TO USE BATHROOM. DENIES ANY PAIN. SKIN INTACT. #20 LH INFUSING D5LR@ 75ML/HR PER EMAR. ORIENTED TO ROOM CALL GATES & SURROUNDINGS. WILL CONTINUE TO MONITOR.
[2016-10-29 16:04] VITALS: BP 112/86
--- NOTE | 2016-10-29 17:06 | PN- Orthopedic ---
Subjective Subjective: POST-OP NOTE: Reports some shoulder discomfort. Tolerating clears. no nausea. Out of bed to chair. Reports still having numbness in fingers of her right hand. Objective Vital Signs and I&Os Vital Signs Date Time Temp Pulse Resp B/P B/P Pulse O2 O2 Flow FiO2 Mean Ox Delivery Rate 10/29 1604 98.1 70 18 112/86 95 10/29 1430 Nasal 3.0L Cannula 10/29 1430 98.2 86 18 110/80 96 Nasal 3.0L Cannula Intake & Output 10/29 1600 10/29 0800 10/29 0000 10/28 1600 10/28 0800 10/28 0000 Intake Total Output Total Balance Patient 225 lb Weight Physical Exam: General - alert & oriented x 3. comfortable. no acute distress. Lungs - clear bilaterally. no w/r/r. Cardiac - s1s2. reg. Abdomen - soft. nontender. Extremities - warm bilaterally. right shoulder dressing c/d/i. no drains seen. home theater specialist strength 5/5. grossly sensate, but she is subjectively numb. arm immobilized in sling. Assessment/Plan Assessment/Plan 59 y/o female with history of asthma, COPD (not oxygen dependent), recurrent bronchitis, HLD, hypothyroidism, migraines, hx of diverticulitis, Parkinson's disease, glaucoma, IBS, GERD, hiatal hernia, OA, depression, bipolar disorder, and anxiety, who is now POD#0 s/p shoulder arthroscopic rotator cuff repair, glenohumeral debridement with biceps tenotomy advance diet as tolerated. d/c iv fluids pain control as ordered home meds ordered TRC / IS / nebs prn hep sc - dvt ppx monitor return of sensation may consider PT / OT eval will d/w Core Measures/Miscellaneous Venous Thromboembolism VTE Risk Factors: Age > 40, Obesity, Surgery VTE Contraindications: No Contraindications VTE Diagnosis: No Beta Taylor Is Beta Taylor a Home Med? No Antibiotics Is Patient on Antibiotics? No
--- NOTE | 2016-10-29 18:49 | NUR ---
PTS IV NOT FLUSHING EASILY. IV TYLENOL ORDERED. PT DENIES ANY PAIN JUST A HEADACHE. SURG PA MADE AWARE PT WISHES TO HAVE PO TYLENOL INSTEAD AND THAT SHE DOES NOT HAVE A PATENT IV. WILL CONTINUE TO MONITOR.
--- NOTE | 2016-10-29 19:18 | NUR ---
PTS CONTINUOUS O2 PROBE STOPPED WORKING. CHECKED O2 SAT, 98% ON 3LNC. PT IN NO RESP DISTRESS. DENIES DIFFICULTY BREATHING. SURGICAL PA HERNANDO NOTIFIED OF MALFUNCTION WITH CONTINUOUS O2 MONITORING. CHARGE NURSE AND NURSING WELDER ASSEMBLER MADE AWARE. NO ORDER TO TRANSFER PT AT THIS TIME. ICU CHARGE NURSE IN TO FIX PROBE. WILL CONTINUE TO MONITOR.
[2016-10-29 20:39] VITALS: BP 110/70
[2016-10-29 23:52] VITALS: BP 102/70
[2016-10-30 04:21] VITALS: BP 100/70
[2016-10-30 07:58] VITALS: BP 112/80
--- NOTE | 2016-10-30 09:19 | PN- Orthopedic ---
See Addendum Subjective Subjective: Awake, alert No complaints overnight Pain well controlled Objective Vital Signs and I&Os Vital Signs Date Time Temp Pulse Resp B/P B/P Pulse O2 O2 Flow FiO2 Mean Ox Delivery Rate 10/30 0758 99.0 94 20 112/80 98 10/30 0421 98.4 86 20 100/70 95 Nasal 4.0L Cannula 10/30 0000 94 Nasal 3.0L Cannula 10/29 2352 98.9 89 20 102/70 95 Nasal 4.0L Cannula 10/29 2039 98.8 86 18 110/70 97 Nasal Cannula 10/29 1733 Nasal 4.0L Cannula 10/29 1604 98.1 70 18 112/86 95 10/29 1430 Nasal 3.0L Cannula 10/29 1430 98.2 86 18 110/80 96 Nasal 3.0L Cannula Intake & Output 10/30 1600 10/30 0800 10/30 0000 10/29 1600 10/29 0800 10/29 0000 Intake Total 240 700 Output Total 350 650 Balance -110 50 Intake, Oral 240 700 Number 0 Bowel Movements Output, Urine 350 650 Patient 225 lb Weight Physical Exam: Tmax 99 Pt on continuous pulse ox overnight. Remained 95-96% on 4LNC General: alert and oriented times three Chest: decreased at bases bilaterally but decreased effort, no rales/rhonchi/ wheezes, RRR Abd: soft, good bs Ext: warm, no calf tenderness, no edema RUE in sling, positive sensate, good strength Parkinsons tremor BUE - baseline Wound: dressed, dry Current Medications: Current Medications Sig/Sonia Start time Last Medication Dose Route Stop Time Status Admin Acetaminophen 650 MG Q4P PRN 10/29 1900 AC 10/29 PO 1900 Acetaminophen 1,000 MG Q6H 10/29 1700 DC N/A 1 UNIT IV 10/30 1114 Albuterol Sulfate 3 ML BID 10/29 2200 AC 10/29 INH 1924 Albuterol Sulfate 2 PUF Q4 PRN 10/29 1245 AC 10/29 INH 2125 Budesonide/ 2 PUF BID 10/29 220 AC 10/29 Formoterol Fumarate INH 2120 Clindamycin 600 MG ONCE 10/29 0000 DC Dextrose/Water 50 ML IV 10/29 2359 Clonazepam 0.5 MG TID 10/29 1600 AC 10/29 PO 11/05 1559 2120 Dextrose/Lactated 1,000 ML Q13H 10/29 1500 DC 10/29 Ringer's IV 1528 Fentanyl Citrate 200 MCG .STK-MED ONE 10/29 1042 DC IM 10/29 1043 Heparin Sodium 5,000 UNIT Q8 10/29 2200 AC 10/30 (Porcine) SC 0534 Mirtazapine 15 MG QPM 10/29 2200 AC 10/29 PO 2120 Morphine Sulfate 2 MG Q3P PRN 10/29 1500 AC IV Ondansetron HCl 4 MG Q6P PRN 10/29 1500 AC 10/29 IV 1957 Oxycodone HCl 5 MG Q4-6 PRN PRN 10/29 1700 AC PO Oxycodone HCl 10 MG Q4-6 PRN PRN 10/29 1700 AC 10/30 PO 0534 Oxycodone/ 1 TAB Q4P PRN 10/29 1500 DC Acetaminophen PO Oxycodone/ 2 TAB Q4P PRN 10/29 1500 DC Acetaminophen PO Sertraline HCl 50 MG DAILY 10/30 1000 AC PO Sucralfate 1,000 MG BID PRN 10/29 1245 AC PO Verapamil HCl 240 MG DAILY 10/30 1000 AC PO Assessment/Plan Assessment/Plan 61 yo female s/p R shoulder RCR, biceps tenotomy Pt seen by Dr Paiz dc continuous pulse ox - wean O2 as tolerated continue pain management dc home fu instructions given Core Measures/Miscellaneous Venous Thromboembolism VTE Risk Factors: Age > 40, Obesity, Surgery VTE Contraindications: No Contraindications VTE Diagnosis: No Beta Taylor Is Beta Taylor a Home Med? No Antibiotics Is Patient on Antibiotics? No
[2016-10-30] MEDS ORDERED: LEVOTHYROXINE88 MCG PO (10:16)
--- NOTE | 2016-10-30 10:25 | Patient Discharge Instructions ---
Discharge Instructions General Discharge Information You were seen/treated for: Rotator cuff injury You had these procedures: Rotator cuff repair Watch for these problems: temp>1-1, increased redness or drainage of wound No bath, but you may shower: Yes Other wound care: Keep incision clean and dry, may shower, no bathing Diet Continue normal diet: Yes Activity Activity Self Limited: Yes Acute Coronary Syndrome Inclusion Criteria At DC or during hospital stay patient has or had the following: ACS DIAGNOSIS No Discharge Core Measures Meds if any: Prescribed or Continued at Discharge Meds if any: NOT Prescribed or Continued at Discharge Congestive Heart Failure Inclusion Criteria At DC or during hospital stay patient has or had the following: CHF DIAGNOSIS No Discharge Core Measures Meds if any: Prescribed or Continued at Discharge Meds if any: NOT Prescribed or Continued at Discharge Cerebrovascular accident Inclusion Criteria At DC or during hospital stay patient has or had the following: CVA/TIA Diagnosis No Discharge Core Measures Meds if any: Prescribed or Continued at Discharge Meds if any: NOT Prescribed or Continued at Discharge Venous thromboembolism Inclusion Criteria VTE Diagnosis No VTE Type NONE VTE Confirmed by (Test) NONE Discharge Core Measures - Per Current guidelines, there needs to be overlap - treatment for the first 5 days of Warfarin therapy. - If discharged on Warfarin prior to 5 days of - overlap therapy, the patient will need to be - assessed for post discharge needs including - *Post discharge parental anticoagulation - *Warfarin and/or parental anticoagulation education - *Follow up date to check INR post discharge At least 5 days overlap therapy as Inpatient No Meds if any: Prescribed or Continued at Discharge Note: Overlap Therapy is Warfarin and Anticoagulant Meds if any: NOT Prescribed or Continued at Discharge
[2016-10-30] MEDS ORDERED: PERCOCET 5-3251 EACH PO (10:32)
--- NOTE | 2016-10-30 10:45 | NUR ---
NOTIFIED SURGICAL PA RANDEE Holley OF PATIENT COMPLAINTS OF NAUSEA. IV ZOFRAN PRN GIVEN. COOL WASH CLOTH GIVEN. WILL CONTINUE TO MONITOR.
[2016-10-30 11:00] VITALS: BP 116/70
== END 2016-10-30 15:00 ==
LOC: STS 02:23 → 2NA 11:53 → PACUH 11:53 → ENRESERV 13:38 → 2NA 14:33 → ENPENDDIS 10-30 10:31 → 2NA 10-30 15:00
PROVIDERS: ADMIT Orthopaedic Surgery Foot and Ankle Surgery
DX: J95.89 Other postprocedural complications and disorders of respiratory system, not elsewhere classified (principal); G20 Parkinson's disease; E78.5 Hyperlipidemia, unspecified; E03.9 Hypothyroidism, unspecified; G43.909 Migraine, unspecified, not intractable, without status migrainosus; H40.9 Unspecified glaucoma; K58.9 Irritable bowel syndrome, unspecified; K21.9 Gastro-esophageal reflux disease without esophagitis; M19.90 Unspecified osteoarthritis, unspecified site; F32.9 Major depressive disorder, single episode, unspecified; F31.9 Bipolar disorder, unspecified; F41.9 Anxiety disorder, unspecified; J44.9 Chronic obstructive pulmonary disease, unspecified
CPT/HCPCS: 1255; 1263; 1328; 1425; 1530; 1748; 6030; 96372; C9399; G0378; J0131; J0171; J1644; J2405; J3490

== ENCOUNTER 2016-11-12 02:53 | Emergency (ER) | payer OTHER ==
[~2016-11-12] VITALS: Ht 157.5 cm; Wt 103.4 kg
[~2016-11-12 02:53] MED LIST changes: +LEVOTHYROXINE88 MCG PO
[2016-11-12 03:12] VITALS: BP 109/77
--- NOTE | 2016-11-12 03:45 | ED UPPER/LOWER EXTREMITY COMPL ---
History of Present Illness General Chief Complaint: General Adult Stated Complaint: PER PT " I HAVE A PAIN IN MY BUTT GOING DOWN LEG" Source: patient, old records Exam Limitations: no limitations Vital Signs & Intake/Output Vital Signs & Intake/Output Vital Signs Date Time Temp Pulse Resp B/P B/P Pulse O2 O2 Flow FiO2 Mean Ox Delivery Rate 11/12 0312 99.0 90 16 109/77 96 Room Air Allergies Coded Allergies: peanut (Severe, TONGUE SWELLING, DIFFICULTY BREATHING 01/25/16) pear (Severe, ANAPHYLAXIS 01/25/16) pepper (Severe, PEPPERS - TONGUE SWELLS 01/25/16) walnut (Severe, DIFFICULTY BREATHING 01/25/16) cefazolin (UNKNOWN 01/25/16) cefuroxime (UNKNOWN 01/25/16) ciprofloxacin (ITCHING 01/25/16) clavulanic acid (From Augmentin) (HIVES, RASH 01/25/16) doxycycline (UNKNOWN 01/25/16) erythromycin base (From Erythrocin) (RASH 01/25/16) neomycin (UNKNOWN 01/25/16) penicillin V (UNKNOWN 01/25/16) polymyxin B (HIVES 01/25/16) quetiapine (From Seroquel) (BRIGHT RED & ITCHY 01/25/16) wheat (WHEAT SPROUTS - ITCHY 01/25/16) chocolate flavor (CHOCOLATE - MIGRAINS 01/25/16) lactose (DIARRHEA 01/25/16) Reconcile Medications Albuterol Sulfate (Proair Hfa) 0.09 MG/Actuation CHRISTINA 2 PUF INH 4 TIMES/DAY ASTHMA (Reported) Budesonide/Formoterol Fumara (Symbicort 160-4.5 Mcg Inhaler) 160 MCG/4.5 MCG PUF 2 PUF INH BID copd (Reported) Clonazepam 0.5 MG TABLET 1 TAB PO TID ANXIETY (Reported) 1 IN THE AM, 1 AFTERNOON, 1 AT NIGHT PER PT Levalbuterol HCl (Xopenex) 0.63 MG/3 ML VIAL.NEB 1 Vial INH/DOMINGA TID PRN SHORTNESS OF BREATH Levothyroxine Sodium 88 MCG TABLET 0.5 TAB PO DAILY thyroid (Reported) Mirabegron (Myrbetriq) 50 MG TAB.ER.24H 1 TAB PO DAILY URINARY INCONTINENCE ( Reported) Mirtazapine 15 MG TABLET 1 TAB PO QPM SLEEP (Reported) Montelukast Sodium 10 MG TABLET 1 TAB PO DAILY ASTHMA (Reported) Oxycodone HCl/Acetaminophen (Percocet 5-325 MG Tablet) 5 MG-325 MG TABLET 1 TAB PO Q4P PRN pain RANITIDINE HCL (Ranitidine Hydrochloride) 300 MG TAB 1 TAB PO BID GI ( Reported) Rosuvastatin Calcium (Crestor) 10 MG TABLET 1 TAB PO DAILY CHOL (Reported) SERTRALINE HCL (Sertraline Hydrochloride) 50 MG TAB 1 TAB PO DAILY MENTAL HEALTH (Reported) Sucralfate 1 GRAM TABLET 1 TAB PO BID PRN GI (Reported) Tiotropium [place] (Spiriva) 18 MCG CAP.W.DEV 1 CAP INH DAILY COPD (Reported) Topiramate (Topamax) 50 MG TAB 2 TAB PO BID PRN MIGRAINE (Reported) Verapamil HCl (Verapamil ER) 240 MG TABLET.ER 1 TAB PO DAILY HEART (Reported) Triage Note: 61YO FEMAEL TO RM 4 W/CO R BUTTOCK PAIN THAT RADIATES DOWN R LEG THAT CAME ON SUDDENLY TONITE. DENIES ANY TRAUMA OR FALL Triage Nurses Notes Reviewed? yes HPI: Patient presents for evaluation of right buttock pain traveling down into the right leg. Patient states began rather abruptly this evening between 1 and 1:30 this morning. She states she was trying to get to sleep at that time. She is describing a severe knifelike pain that has been intermittent occurring every 2- 3 minutes. She denies any associated back pain rashes or injury. There has been no associated fever or cold symptoms. She is currently taking Percocet for a right rotator cuff surgery but that seems to not be helping the right leg pain. Past History Travel History Traveled to [place] past 21 day No Medical History Any Pertinent Medical History? see below for history Neurological: migraine, Parkinson's disease EENT: glaucoma Cardiovascular: hyperlipidemia, HYPOTENSION Respiratory: asthma, COPD, emphysema Gastrointestinal: diverticulitis, GERD, hiatal hernia, irritable bowel syndrome Hepatic: NONE Renal: NONE Musculoskeletal: right rotator cuff tendonitis Psychiatric: anxiety, depression Endocrine: hypothyroidism Blood Disorders: NONE Cancer(s): NONE CELL BIOLOGIST/Reproductive: NONE History of MRSA: No History of VRE: No History of CDIFF: No Tetanus Vaccine: 12/22/13 Surgical History Surgical History: non-contributory Psychosocial History Who do you live with Family Services at Home None What is your primary language Turkish Tobacco Use: Quit >30 days ago Family History Family History, If Any: MOTHER FH: myocardial infarction FATHER FH: CAD (coronary artery disease) FH: diabetes mellitus FH: HTN (hypertension) FH: stroke Hx Contributory? No Review of Systems Review of Systems Constitutional: Reports: no symptoms. EENTM: Reports: no symptoms. Respiratory: Reports: no symptoms. Cardiovascular: Reports: no symptoms. Gastrointestinal/Abdominal: Reports: no symptoms. Genitourinary: Reports: no symptoms. Musculoskeletal: Reports: see HPI. Skin: Reports: no symptoms. Neurological/Psychological: Reports: no symptoms. Hematologic/Endocrine: Reports: no symptoms. Immunological: Reports: no symptoms. All Other Systems: Reviewed and Negative Physical Exam Physical Exam General Appearance: SEE BELOW Comments: Gen.: Well-nourished, well-developed, no acute respiratory distress. Head: Normocephalic, atraumatic. Eyes: Normal inspection bilaterally Ears: Normal inspection bilaterally Nose: Normal inspection, nasal cannula in place Throat/mouth : Moist mucosa Neck: Supple, full range of motion, no goiter Heart: Regular rate and rhythm Lungs: Quiet respirations Back: Normal range of motion, normal inspection, nontender Extremities: Right lower extremity: Neurovascularly intact with normal sensation to light touch, normal distal pulses and normal deep tendon reflexes. No pain or tenderness with range of motion of the right knee or hip. Neurologic: Cranial nerves grossly intact, speech is clear Skin: warm and dry Psychiatric: Calm, cooperative, no apparent delusions or hallucinations Progress Differential Diagnosis: DISC DISEASE OF LUMBAR SPINE, SCIATICA Plan of Care: Orders Procedure Date/time Status XRY-LUMBOSACRAL SPINE AP & LAT 11/12 344 Active XRY-HIP 2-3 VIEWS, RIGHT 11/12 344 Active Diagnostic Imaging: Discussed w/RAD: Radiology Read. Radiology Impression: PATIENT: WILLOW VILLA PRESENT AGE: 61 PATIENT ACCOUNT NO: [id number] : 53 LOCATION: [facility] ORDERING PHYSICIAN: LETITIA GATES MD SERVICE DATE: 11/12/16 EXAM TYPE: RAD - XRY-LUMBOSACRAL SPINE AP & LAT EXAMINATION: XR LUMBOSACRAL SPINE CLINICAL INFORMATION: Sciatica-like pain, right side COMPARISON: 08/14/2015 TECHNIQUE: 2 views of the lumbosacral spine FINDINGS: No acute fracture or subluxation. Vertebral bodies and posterior elements are anatomically aligned. Vertebral body heights are maintained. Mild disc space narrowing at L3-L4 and L4-L5 which has progressed since the prior study. Multilevel facet arthropathy. The sacroiliac joints are intact. The sacrum is intact. Right upper quadrant surgical clips. IMPRESSION: Mild multilevel degenerative changes, with progressive disc space narrowing at L3-L4 and L4-L5. DICTATED BY: BERNY GIPSON MD DATE/TIME DICTATED:11/12/16430 WIGS SALESPERSON:SIOMARA DATE/TIME TRANSCRIBED:430 CONFIDENTIAL, DO NOT COPY WITHOUT APPROPRIATE AUTHORIZATION. < Electronically signed in Other Vendor System> SIGNED BY: BERNY GIPSON MD 11/12/16435, PATIENT: WILLOW VILLA PRESENT AGE: 61 PATIENT ACCOUNT NO: [id number] : 53 LOCATION: [facility] ORDERING PHYSICIAN: LETITIA GATES MD SERVICE DATE: 11/12/16 EXAM TYPE: RAD - XRY-HIP 2-3 VIEWS, RIGHT EXAMINATION: XR HIP, RIGHT CLINICAL INFORMATION: Sciatica like pain, right side COMPARISON: 02/04/2016 TECHNIQUE: Frontal view of the pelvis with 2 additional views of the right hip. FINDINGS: No fracture or dislocation. The femoral heads are well-seated within their respective acetabula. Mild degenerative changes bilaterally with joint space narrowing. This is similar to prior. The pelvic rim is intact. Sacroiliac joints and pubic symphysis are intact. Suture line noted in the central pelvis. The bowel gas pattern is unremarkable. IMPRESSION: Mild degenerative changes of the hips, similar to prior. No acute abnormality. DICTATED BY: BERNY GIPSON MD DATE/ TIME DICTATED:11/12/16429 WIGS SALESPERSON:MCWILLIAMS DATE/TIME TRANSCRIBED: 11/12/16429 CONFIDENTIAL, DO NOT COPY WITHOUT APPROPRIATE AUTHORIZATION. < Electronically signed in Other Vendor System> SIGNED BY: BERNY GIPSON MD 11/12/16433 Comments: 11/12/2016 4:51:41 AM I have updated Willow on her test results. She states she hasn't had any pain since arriving to the emergency department. She was once placed on celecoxib and I will re-prescribe this for her along with a muscle relaxer. Departure Departure Disposition: HOME OR SELF CARE Condition: Stable Clinical Impression Primary Impression: Sciatica of right side Secondary Impressions: Degenerative disc disease, lumbar Referrals: LILIA MAKI MD (PCP/Family) Additional Instructions: REST, no exertion or heavy lifting. Departure Forms: Customer Survey General Discharge Information Prescriptions: Current Visit Scripts Celecoxib (Celebrex) 1 CAP PO BID PRN PAIN #14 CAP Orphenadrine Citrate 1 TAB PO BIDP PRN MUSCLE SPASMS #14 TAB
--- NOTE | 2016-11-12 04:34 | RADIOLOGY REPORT ---
EXAMINATION: XR HIP, RIGHT CLINICAL INFORMATION: Sciatica like pain, right side COMPARISON: 02/04/2016 TECHNIQUE: Frontal view of the pelvis with 2 additional views of the right hip. FINDINGS: No fracture or dislocation. The femoral heads are well-seated within their respective acetabula. Mild degenerative changes bilaterally with joint space narrowing. This is similar to prior. The pelvic rim is intact. Sacroiliac joints and pubic symphysis are intact. Suture line noted in the central pelvis. The bowel gas pattern is unremarkable. IMPRESSION: Mild degenerative changes of the hips, similar to prior. No acute abnormality.
--- NOTE | 2016-11-12 04:36 | RADIOLOGY REPORT ---
EXAMINATION: XR LUMBOSACRAL SPINE CLINICAL INFORMATION: Sciatica-like pain, right side COMPARISON: 08/14/2015 TECHNIQUE: 2 views of the lumbosacral spine FINDINGS: No acute fracture or subluxation. Vertebral bodies and posterior elements are anatomically aligned. Vertebral body heights are maintained. Mild disc space narrowing at L3-L4 and L4-L5 which has progressed since the prior study. Multilevel facet arthropathy. The sacroiliac joints are intact. The sacrum is intact. Right upper quadrant surgical clips. IMPRESSION: Mild multilevel degenerative changes, with progressive disc space narrowing at L3-L4 and L4-L5.
[2016-11-12] MEDS ORDERED: ORPHENADRINE C100 MG PO (04:55)
[2016-11-12] MEDS ORDERED: CELEBREX50 M1 PO (04:55)
== END 2016-11-12 05:11 ==
LOC: ERH 02:53
DX: M54.41 Lumbago with sciatica, right side (principal); M51.16 Intervertebral disc disorders with radiculopathy, lumbar region
CPT/HCPCS: 72100; 73502-RT

== ENCOUNTER 2016-12-08 15:54 | Emergency (ER) | payer OTHER ==
[~2016-12-08] VITALS: Ht 157.5 cm; Wt 102.1 kg
[~2016-12-08 15:54] MED LIST changes: +CELEBREX50 M1 PO; +ORPHENADRINE C100 MG PO
--- NOTE | 2016-12-08 18:30 | ED DYSPNEA/ASTHMA COMPLAINT ---
History of Present Illness General Chief Complaint: Wheezing/Asthma Stated Complaint: DIFF BREATHING Source: patient Exam Limitations: no limitations Vital Signs & Intake/Output Vital Signs & Intake/Output Vital Signs Date Time Temp Pulse Resp B/P B/P Pulse O2 O2 Flow FiO2 Mean Ox Delivery Rate 12/09 2031 98.1 70 20 120/78 98 Room Air / 1900 75 20 130/80 98 Room Air 06/05 1808 97 06/05 1757 95 Room Air 06/05 1605 98.8 93 20 125/82 95 Room Air ED Intake and Output 12/09 0000 0605 1200 Intake Total 50 Output Total Balance 50 Intake, IV 50 Patient 225 lb Weight Weight Reported by Patient Measurement Method Allergies Coded Allergies: peanut (Severe, TONGUE SWELLING, DIFFICULTY BREATHING 01/25/16) pear (Severe, ANAPHYLAXIS 01/25/16) pepper (Severe, PEPPERS - TONGUE SWELLS 01/25/16) walnut (Severe, DIFFICULTY BREATHING 01/25/16) cefazolin (UNKNOWN 01/25/16) cefuroxime (UNKNOWN 01/25/16) ciprofloxacin (ITCHING 01/25/16) clavulanic acid (From Augmentin) (HIVES, RASH 01/25/16) doxycycline (UNKNOWN 01/25/16) erythromycin base (From Erythrocin) (RASH 01/25/16) neomycin (UNKNOWN 01/25/16) penicillin V (UNKNOWN 01/25/16) polymyxin B (HIVES 01/25/16) quetiapine (From Seroquel) (BRIGHT RED & ITCHY 01/25/16) wheat (WHEAT SPROUTS - ITCHY 01/25/16) chocolate flavor (CHOCOLATE - MIGRAINS 01/25/16) lactose (DIARRHEA 01/25/16) Reconcile Medications Albuterol Sulfate (Ventolin Hfa) 90 MCG HFA.AER.AD 2 PUF INH 4XDAILY ASTHMA ( Reported) Budesonide/Formoterol Fumarate (Symbicort 160-4.5 Mcg Inhaler) 160 MCG-4.5 MCG/ ACTUATION HFA.AER.AD 2 PUF INH BID COPD (Reported) Clonazepam 0.5 MG TABLET 1 TAB PO TID ANXIETY (Reported) Levalbuterol HCl (Xopenex) 0.63 MG/3 ML VIAL.NEB 1 Vial INH/DOMINGA TID PRN SHORTNESS OF BREATH Levothyroxine Sodium 88 MCG TABLET 0.5 TAB PO DAILY thyroid (Reported) Mirabegron (Myrbetriq) 50 MG TAB.ER.24H 1 TAB PO DAILY URINARY INCONTINENCE ( Reported) Mirtazapine 15 MG TABLET 1 TAB PO QPM SLEEP (Reported) Montelukast Sodium (Singulair) 10 MG TABLET 1 TAB PO DAILY ASTHMA (Reported) Ranitidine HCl (Zantac) 300 MG TABLET 1 TAB PO BID GI (Reported) Rosuvastatin Calcium (Crestor) 10 MG TABLET 1 TAB PO DAILY CHOL (Reported) Sertraline HCl 50 MG TABLET 1 TAB PO DAILY MENTAL HEALTH (Reported) Sucralfate (Carafate) 1 GRAM TABLET 1 TAB PO BID PRN GI (Reported) Tiotropium [place] (Spiriva Respimat) 2.5 MCG/ACTUATION MIST.INHAL 2 PUFF INH DAILY ASTHMA (Reported) Topiramate (Topamax) 50 MG TABLET 2 TAB PO BID PRN MIGRAINES (Reported) Verapamil HCl (Verapamil ER) 240 MG TABLET.ER 1 TAB PO DAILY HEART (Reported) Triage Note: 61 YO FEMALE TO ER C/O SHORTNESS OF BREATH X "A COUPLE DAYS" DENIES CHEST PAIN. STATES SHE CALLED HER DR WHO INSTRUCTED HER TO COME HERE. PT NOTED WITH NONPRODUCTIVE COUGH. RA SATS 95% AT THIS TIME. REG RESP RATE NOTED. Triage Nurses Notes Reviewed? yes HPI: Ms. Alexandre is a 61 w/ f w/ extensive medical history most notable for asthma and COPD presenting to ED for cough and SOB. Vision states she started with a cough earlier today. She's had increased work of breathing. Cough is nonproductive. Patient denies any dyspnea upon exertion. She is unsure if she has allergies or pneumonia. Patient is a remote smoker who quit many years ago. Patient denies any alcohol contacts. No fevers or chills. No chest pain or abdominal pain. No nausea, vomiting, diarrhea or decreased by mouth intake. Normal bowel and bladder functions. (AMANDA BARRETO,MARTHA) Past History Travel History Traveled to [place] past 21 day No Medical History Any Pertinent Medical History? see below for history Neurological: migraine, Parkinson's disease EENT: glaucoma Cardiovascular: hyperlipidemia, HYPOTENSION Respiratory: asthma, COPD, emphysema Gastrointestinal: diverticulitis, GERD, hiatal hernia, irritable bowel syndrome Hepatic: NONE Renal: NONE Musculoskeletal: right rotator cuff tendonitis Psychiatric: anxiety, depression Endocrine: hypothyroidism Blood Disorders: NONE Cancer(s): NONE FELT HOOKER/Reproductive: NONE History of MRSA: No History of VRE: No History of CDIFF: No Tetanus Vaccine: 12/22/13 Surgical History Surgical History: non-contributory Psychosocial History Who do you live with Family Services at Home None What is your primary language Polish Tobacco Use: Never used Family History Family History, If Any: MOTHER FH: myocardial infarction FATHER FH: CAD (coronary artery disease) FH: diabetes mellitus FH: HTN (hypertension) FH: stroke Hx Contributory? No (MARTHA PATEL MD) Review of Systems Review of Systems Constitutional: Reports: see HPI. EENTM: Reports: nasal congestion. Respiratory: Reports: cough, short of breath, wheezing. Denies: sputum production. Cardiovascular: Reports: no symptoms. GI: Reports: no symptoms. Genitourinary: Reports: no symptoms. Musculoskeletal: Reports: no symptoms. Skin: Reports: no symptoms. Neurological/Psychological: Reports: no symptoms. Hematologic/Endocrine: Reports: no symptoms. Immunologic/Allergic: Reports: no symptoms. All Other Systems: Reviewed and Negative (MARTHA PATEL MD) Physical Exam Physical Exam General Appearance: well developed/nourished, no apparent distress, alert, awake Head: atraumatic, normal appearance Eyes: Bilateral: normal appearance, PERRL, EOMI. Ears, Nose, Throat: normal pharynx, normal ENT inspection, hearing grossly normal Neck: normal inspection, supple, full range of motion Respiratory: chest non-tender, no respiratory distress, wheezing, mild expiratory wheeze. No focal rhonchi or rales. No increased work of breathing. Cardiovascular: regular rate/rhythm Gastrointestinal: normal bowel sounds, soft, non-tender Extremities: normal inspection, normal capillary refill, normal range of motion Neurologic/Psych: no motor/sensory deficits, awake, alert, oriented x 3, normal gait, normal mood/affect Skin: intact, normal color, warm/dry Lymphatic: no anterior cervical brendon Core Measures ACS in differential dx? No Severe Sepsis Present: No Septic Shock Present: No (MARTHA PATEL MD) Progress Differential Diagnosis: asthma, costochondritis, COPD, pneumonia, pneumothorax Plan of Care: Orders Procedure Date/time Status EKG 12/08 1759 Active 61-year-old female presenting to the ED with shortness of breath for several days and a cough that began today. Patient noted to have bronchospastic cough with mild expiratory wheeze. Will administer DuoNeb to help improve her wheezing. Plan to obtain chest x-ray to rule out pneumonia as she endorses some mild URI symptoms over the past 2 or 3 days. Positive nasal congestion. EKG otherwise unremarkable. Patient denies any chest pain several troponin not indicated at this point in time with a normal EKG. Possible COPD exacerbation however the patient was not a long-term smoker so less likely. Chest x-ray is negative for pneumonia. Significant postnasal drip noted on oral examination. Patient likely having ongoing symptoms of URI and is experiencing worsening shortness of breath and cough. Patient was recommended to take [id number] decongestant to decrease secretions in nasal passages. Also recommended the patient perform a nasal saline rinse to help remove some of the congestion. Patient given return precautions and instructed to follow up with her primary care doctor. (MARTHA PATEL MD) Initial ED EKG: normal intervals, normal p-waves, NSR, L axis deviation, Rate 79 Prior EKG: unchanged (MARTHA PATEL MD) Departure Departure Time of Disposition: 2016 Disposition: HOME OR SELF CARE Condition: Stable Clinical Impression Primary Impression: URI, acute Secondary Impressions: Post-nasal drip Referrals: LILIA MAKI MD (PCP/Family) Additional Instructions: Please do a saline nasal or sinus rinse to help remove. Congestion in the nose. It also might be helpful for used to use a [id number]-lyjuret decongestant to help dry up some of the secretions. There is no evidence of pneumonia on chest x-ray at this point in time. If her symptoms do not improve in several days, we recommend that you see your primary care doctor for further evaluation. You develop a fever, or are unable to breathe, using return to the emergency department for further evaluation. Departure Forms: Customer Survey General Discharge Information (MARTHA PATEL MD) Resident Co-Sign Statement Statement: ED Attending supervision documentation- [X] I saw and evaluated the patient. I have also reviewed all the pertinent lab results and diagnostic results. I agree with the findings and the plan of care as documented in the Resident's documentation. [X] I have reviewed the ED Record and agree with the Resident's documentation. [] Additions or exceptions (if any) to the Resident's note and plan are summarized below: [] (MARCOS BARRETO,JAZLYN Wrigth) Critical Care Note Critical Care Note Critical Care Time: non-applicable (AMANDA BARRETO,MARTHA)
[2016-12-08] MEDS ORDERED: SPIRIVA RESPIMAT4 GM INH (19:09)
--- NOTE | 2016-12-08 19:21 | RADIOLOGY REPORT ---
EXAMINATION: XR CHEST CLINICAL INFORMATION: Pneumonia. Cough, shortness of breath, subjective fever COMPARISON: 12/04/2016 TECHNIQUE: 2 views of the chest were obtained. FINDINGS: There is an eventration of the left hemidiaphragm. Mild left base atelectasis. No focal consolidation or mass. Tortuous aorta. Normal heart size. Regional skeleton intact. There is likely a small right pleural effusion with pleural fluid or pleural thickening extending along the right lateral chest. IMPRESSION: Left base atelectasis. Likely small right pleural effusion.
[2016-12-08 20:32] VITALS: BP 120/78
== END 2016-12-08 20:32 ==
LOC: ERH 15:54
DX: J06.9 Acute upper respiratory infection, unspecified (principal); R09.82 Postnasal drip
CPT/HCPCS: 1263; 93005; 93010

== ENCOUNTER 2017-01-14 17:04 | Emergency (ER) | payer OTHER ==
[~2017-01-14] VITALS: Ht 157.5 cm; Wt 102.5 kg
[~2017-01-14 17:04] MED LIST changes: +SPIRIVA RESPIMAT4 GM INH
--- NOTE | 2017-01-14 17:34 | ED DYSPNEA/ASTHMA COMPLAINT ---
History of Present Illness General Chief Complaint: General Adult Stated Complaint: PT IS HAVING A PROBLEM BREATHING Source: patient, family, old records Exam Limitations: no limitations Vital Signs & Intake/Output Vital Signs & Intake/Output Vital Signs Date Time Temp Pulse Resp B/P B/P Pulse O2 O2 Flow FiO2 Mean Ox Delivery Rate 01/14 1935 97.2 84 16 122/56 93 Room Air 01/14 1859 94 01/14 1835 93 Room Air 01/14 1754 93 Nasal 2.0L Cannula 01/14 1749 98.7 80 22 126/70 94 Room Air 01/14 1708 99.2 83 16 112/79 95 Room Air Allergies Coded Allergies: peanut (Severe, TONGUE SWELLING, DIFFICULTY BREATHING 01/25/16) pear (Severe, ANAPHYLAXIS 01/25/16) pepper (Severe, PEPPERS - TONGUE SWELLS 01/25/16) walnut (Severe, DIFFICULTY BREATHING 01/25/16) cefazolin (UNKNOWN 01/25/16) cefuroxime (UNKNOWN 01/25/16) ciprofloxacin (ITCHING 01/25/16) clavulanic acid (From Augmentin) (HIVES, RASH 01/25/16) doxycycline (UNKNOWN 01/25/16) erythromycin base (From Erythrocin) (RASH 01/25/16) neomycin (UNKNOWN 01/25/16) penicillin V (UNKNOWN 01/25/16) polymyxin B (HIVES 01/25/16) quetiapine (From Seroquel) (BRIGHT RED & ITCHY 01/25/16) wheat (WHEAT SPROUTS - ITCHY 01/25/16) chocolate flavor (CHOCOLATE - MIGRAINS 01/25/16) lactose (DIARRHEA 01/25/16) Triage Note: PT STATES SHE IS HAVING TROUBLE BREATHING. PT REPORTS BEING SICK FOR A WHILE. PT STATES THE PAST HOUR SHE HAS GOTTEN WORSE. PT REPORTS HAVING A DRY COUGH FOR 1.5 WEEKS. PT UNSURE OF FEVERS. 02 SAT 94% IN TRIAGE Triage Nurses Notes Reviewed? yes Onset: Last week Duration: week(s):, continues in ED, getting worse Timing: recent history Severity: moderate, severe Activities at Onset: rest Prior Episodes/Possible Cause: frequent episodes Modifying Factors: Improves With: rest. Worsens With: movement. Associated Symptoms: anxiety, cough, wheezing, weakness LMP (ages 10-50): post menopausal : No Patient currently breastfeeds: No HPI: 10 days prior to admission patient complains of productive cough wheezing shortness of breath. With increased humidity patient complains of increased shortness of breath wheezing today with fatigue. She denies fever chills nausea vomiting diarrhea abdominal pain chest pain headache dysuria rash bleeding. (FLY BARRETO,ALIREZA) Reconcile Medications Albuterol Sulfate (Ventolin Hfa) 90 MCG HFA.AER.AD 2 PUF INH 4XDAILY ASTHMA ( Reported) Budesonide/Formoterol Fumarate (Symbicort 160-4.5 Mcg Inhaler) 160 MCG-4.5 MCG/ ACTUATION HFA.AER.AD 2 PUF INH BID COPD (Reported) Clonazepam 0.5 MG TABLET 1 TAB PO TID ANXIETY (Reported) Doxycycline Hyclate 100 MG TABLET 1 TAB PO BID BRONCHITIS/PNEUMONIA Levalbuterol HCl (Xopenex) 0.63 MG/3 ML VIAL.NEB 1 Vial INH/DOMINGA TID PRN SHORTNESS OF BREATH Levothyroxine Sodium 88 MCG TABLET 0.5 TAB PO DAILY thyroid (Reported) Mirabegron (Myrbetriq) 50 MG TAB.ER.24H 1 TAB PO DAILY URINARY INCONTINENCE ( Reported) Mirtazapine 15 MG TABLET 1 TAB PO QPM SLEEP (Reported) Montelukast Sodium (Singulair) 10 MG TABLET 1 TAB PO DAILY ASTHMA (Reported) Prednisone 10 MG TABLET 1 TAB PO QDAY ASTHMA 5 PILLS X 3 DAYS, THEN 4 PILLS X 3 DAYS, THEN 3 PILLS X 3 DAYS, THEN 2 PILLS X 3 DAYS, THEN 1 PILL X 3 DAYS, THEN 1/2 PILL X 3 DAYS Ranitidine HCl (Zantac) 300 MG TABLET 1 TAB PO BID GI (Reported) Rosuvastatin Calcium (Crestor) 10 MG TABLET 1 TAB PO DAILY CHOL (Reported) Sertraline HCl 50 MG TABLET 1 TAB PO DAILY MENTAL HEALTH (Reported) Sucralfate (Carafate) 1 GRAM TABLET 1 TAB PO BID PRN GI (Reported) Tiotropium [place] (Spiriva Respimat) 2.5 MCG/ACTUATION MIST.INHAL 2 PUFF INH DAILY ASTHMA (Reported) Topiramate (Topamax) 50 MG TABLET 2 TAB PO BID PRN MIGRAINES (Reported) Verapamil HCl (Verapamil ER) 240 MG TABLET.ER 1 TAB PO DAILY HEART (Reported) (APRIL MD,KARLA Cardoso) Past History Travel History Traveled to [place] past 21 day No Medical History Any Pertinent Medical History? see below for history Neurological: migraine, Parkinson's disease EENT: glaucoma Cardiovascular: hyperlipidemia, HYPOTENSION Respiratory: asthma, COPD, emphysema Gastrointestinal: diverticulitis, GERD, hiatal hernia, irritable bowel syndrome Hepatic: NONE Renal: NONE Musculoskeletal: right rotator cuff tendonitis Psychiatric: anxiety, depression Endocrine: hypothyroidism Blood Disorders: NONE Cancer(s): NONE ROD DRAWER/Reproductive: NONE History of MRSA: No History of VRE: No History of CDIFF: No Tetanus Vaccine: 12/22/13 Surgical History Surgical History: non-contributory Psychosocial History Who do you live with Family Services at Home None What is your primary language German Tobacco Use: Quit >30 days ago ETOH Use: denies use Illicit Drug Use: denies illicit drug use Family History Family History, If Any: MOTHER FH: myocardial infarction FATHER FH: CAD (coronary artery disease) FH: diabetes mellitus FH: HTN (hypertension) FH: stroke Hx Contributory? No (ALIREZA BILL MD) Review of Systems Review of Systems Constitutional: Reports: see HPI, weakness. EENTM: Reports: no symptoms. Respiratory: Reports: see HPI, cough, short of breath, wheezing. Cardiovascular: Reports: no symptoms. GI: Reports: no symptoms. Genitourinary: Reports: no symptoms. Musculoskeletal: Reports: no symptoms. Skin: Reports: no symptoms. Neurological/Psychological: Reports: no symptoms. Hematologic/Endocrine: Reports: no symptoms. Immunologic/Allergic: Reports: no symptoms. All Other Systems: Reviewed and Negative (ALIREZA BILL MD) Physical Exam Physical Exam General Appearance: well developed/nourished, alert, awake, anxious, moderate distress, obese Head: atraumatic, normal appearance Eyes: Bilateral: normal appearance, PERRL, EOMI. Ears, Nose, Throat: normal pharynx, normal ENT inspection, hearing grossly normal Neck: normal inspection, supple, full range of motion, no midline tenderness Respiratory: chest non-tender, quiet respiration, decreased breath sounds, wheezing Cardiovascular: regular rate/rhythm, normal peripheral pulses, norml femoral pulses equa Peripheral Pulses: 4+ carotid (R), 4+ carotid (L) Gastrointestinal: normal bowel sounds, soft, non-tender, no organomegaly Extremities: normal inspection, normal capillary refill, normal range of motion, no edema Neurologic/Psych: no motor/sensory deficits, awake, alert, oriented x 3, normal gait, normal mood/affect, director payer II-XII nml as tested Skin: intact, normal color, warm/dry Lymphatic: no anterior cervical brendon Core Measures ACS in differential dx? No Severe Sepsis Present: No Septic Shock Present: No (ALIREZA BILL MD) Progress Differential Diagnosis: asthma, COPD, pneumonia Plan of Care: Current Medications Sig/Sonia Start time Last Medication Dose Stop Time Status Admin Doxycycline Hyclate 100 MG ONCE ONE 01/14 2100 UNVr (Vibramycin) 01/14 2101 Initial ED EKG: none Hand-Off Endorsed To: KARLA CHEN MD Endorsed Time: 1899 Pending: other (clinical condition), Xray (ALIREZA BILL MD) CXR Impression: no acute abnormality, no infiltrates, normal size heart, normal mediastinum Comments: PATIENT: WILLOW VILLA PRESENT AGE: 61 PATIENT ACCOUNT NO: [id number] : 53 LOCATION: [facility] ORDERING PHYSICIAN: ALIREZA BILL MD SERVICE DATE: 01/14/17 EXAM TYPE: RAD - XRY-PORTABLE CHEST XRAY EXAMINATION: CHEST 1 VIEW CLINICAL INFORMATION: Shortness of breath, COPD, wheezing, cough. COMPARISON: 12/08/2016. TECHNIQUE: An AP view of the chest is provided. FINDINGS: Evaluation is limited due to low lung volumes. The cardiac silhouette is stable. The mediastinal and hilar contours are unremarkable. There are neither pleural effusions nor pneumothoraces. There is suggestion of a retrocardiac opacity. The osseous structures are unremarkable. IMPRESSION: Limited evaluation due to low lung volumes. Likely retrocardiac opacity present. Recommendation is for a followup chest series to be obtained following treatment and/or resolution of symptoms to assure resolution of this appearance. DICTATED BY: JUVENAL SANDERS MD DATE/TIME DICTATED:01/14/171901 CLINICAL PROGRAM MANAGER:SIOMARA DATE/TIME TRANSCRIBED:01/14/171901 CONFIDENTIAL, DO NOT COPY WITHOUT APPROPRIATE AUTHORIZATION. <Electronically signed in Other Vendor System> SIGNED BY: JUVENAL SANDERS MD 01/14/171908 (KARLA CHEN MD) Departure Departure Disposition: HOME OR SELF CARE Condition: Stable Clinical Impression Primary Impression: COPD with exacerbation Referrals: LILIA MAKI MD (PCP/Family) Departure Forms: Customer Survey General Discharge Information (ALIREZA BILL MD) Departure Prescriptions: Current Visit Scripts Prednisone 1 TAB PO QDAY #50 TAB 5 PILLS X 3 DAYS, THEN 4 PILLS X 3 DAYS, THEN 3 PILLS X 3 DAYS, THEN 2 PILLS X 3 DAYS, THEN 1 PILL X 3 DAYS, THEN 1/2 PILL X 3 DAYS Doxycycline Hyclate 1 TAB PO BID #20 TAB Comments 01/14/17, 20:45.... pt stable in the ED with stable 02 sat, feeling better... pt NOT allergic to doxy... will extend prednisone taper, give doxy to broaden coverage (was on cipro) and advocated close follow up. (APRIL BARRETO,KARLA Cardoso) Critical Care Note Critical Care Note Critical Care Time: non-applicable (ALIREZA BILL MD)
--- NOTE | 2017-01-14 19:09 | RADIOLOGY REPORT ---
EXAMINATION: CHEST 1 VIEW CLINICAL INFORMATION: Shortness of breath, COPD, wheezing, cough. COMPARISON: 12/08/2016. TECHNIQUE: An AP view of the chest is provided. FINDINGS: Evaluation is limited due to low lung volumes. The cardiac silhouette is stable. The mediastinal and hilar contours are unremarkable. There are neither pleural effusions nor pneumothoraces. There is suggestion of a retrocardiac opacity. The osseous structures are unremarkable. IMPRESSION: Limited evaluation due to low lung volumes. Likely retrocardiac opacity present. Recommendation is for a followup chest series to be obtained following treatment and/or resolution of symptoms to assure resolution of this appearance.
[2017-01-14] MEDS ORDERED: DOXYCYCLINE HY100 M4 PO (20:44)
[2017-01-14] MEDS ORDERED: PREDNISONE10 M2 PO (20:44)
[2017-01-14] MEDS ORDERED: STIOLTO RESPIMAT4 GM INH (20:53)
[2017-01-14 20:55] VITALS: BP 127/60
[2017-01-14] MEDS ORDERED: ABILIFY10 M1 PO (20:55)
[2017-01-14] MEDS ORDERED: CIPROFLOXACIN500 M2 PO (20:55)
== END 2017-01-14 20:56 ==
LOC: ERH 17:04
DX: J44.1 Chronic obstructive pulmonary disease with (acute) exacerbation (principal)
CPT/HCPCS: 1263

== ENCOUNTER 2017-01-17 22:40 | Inpatient (IN) | payer OTHER ==
[~2017-01-17] VITALS: Ht 157.5 cm; Wt 103.4 kg
[~2017-01-17 22:40] MED LIST changes: +CIPROFLOXACIN500 M2 PO; +DOXYCYCLINE HY100 M4 PO; +STIOLTO RESPIMAT4 GM INH
--- NOTE | 2017-01-17 22:47 | NUR ---
Informed waiting has been performed.
--- NOTE | 2017-01-17 22:47 | NUR ---
TRIAGE: PT TO ER WITH BROTHER C/C DIFFICULTY BREATHING, STATES WAS SEEN HERE THURSDAY FOR SAME AND WAS TOLD SHE HAD BORDERLINE PNEUMONIA. WAS STARTED ON 2 DIFFERENT ABX AND PREDNISONE. DOES NOT FEEL BETTER. REPORTS NON PRODUCTIVE COUGH. PT SPEAKING IN COMPLETE SENTENCES AT TRIAGE WITHOUT DIFFICULTY, R/A SATS WNL, SKIN COLOR GOOD.
--- NOTE | 2017-01-18 00:33 | ED GENERAL ADULT ---
History of Present Illness General Chief Complaint: Dyspnea (COPD, CHF, Other) Stated Complaint: DIFF BREATHING Source: patient Exam Limitations: no limitations Vital Signs & Intake/Output Vital Signs & Intake/Output Vital Signs Date Time Temp Pulse Resp B/P B/P Pulse O2 O2 Flow FiO2 Mean Ox Delivery Rate 01/18 0504 96.5 76 18 119/56 98 Room Air 01/18 0121 96 Room Air 01/18 0053 96.6 82 18 110/61 96 Room Air 01/17 2244 98.2 101 20 108/72 96 Room Air ED Intake and Output 01/18 0000 01/17 1200 Intake Total Output Total Balance Patient 228 lb Weight Weight Reported by Patient Measurement Method Allergies Coded Allergies: peanut (Severe, TONGUE SWELLING, DIFFICULTY BREATHING 01/25/16) pear (Severe, ANAPHYLAXIS 01/25/16) pepper (Severe, PEPPERS - TONGUE SWELLS 01/25/16) walnut (Severe, DIFFICULTY BREATHING 01/25/16) cefazolin (UNKNOWN 01/25/16) cefuroxime (UNKNOWN 01/25/16) ciprofloxacin (ITCHING 01/25/16) clavulanic acid (From Augmentin) (HIVES, RASH 01/25/16) doxycycline (UNKNOWN 01/25/16) erythromycin base (From Erythrocin) (RASH 01/25/16) neomycin (UNKNOWN 01/25/16) penicillin V (UNKNOWN 01/25/16) polymyxin B (HIVES 01/25/16) quetiapine (From Seroquel) (BRIGHT RED & ITCHY 01/25/16) wheat (WHEAT SPROUTS - ITCHY 01/25/16) chocolate flavor (CHOCOLATE - MIGRAINS 01/25/16) lactose (DIARRHEA 01/25/16) Reconcile Medications Albuterol Sulfate (Ventolin Hfa) 90 MCG HFA.AER.AD 2 PUF INH 4XDAILY ASTHMA ( Reported) Aripiprazole (Abilify) 10 MG TABLET 1 TAB PO DAILY MENTAL HEALTH (Reported) Budesonide/Formoterol Fumarate (Symbicort 160-4.5 Mcg Inhaler) 160 MCG-4.5 MCG/ ACTUATION HFA.AER.AD 2 PUF INH BID COPD (Reported) Ciprofloxacin HCl 500 MG TABLET 1 TAB PO BID ANTIBIOTIC (Reported) Clonazepam 0.5 MG TABLET 1 TAB PO TID ANXIETY (Reported) Doxycycline Hyclate 100 MG TABLET 1 TAB PO BID BRONCHITIS/PNEUMONIA Levalbuterol HCl (Xopenex) 0.63 MG/3 ML VIAL.NEB 1 Vial INH/DOMINGA TID PRN SHORTNESS OF BREATH Levothyroxine Sodium 88 MCG TABLET 1 TAB PO DAILY thyroid (Reported) Mirabegron (Myrbetriq) 50 MG TAB.ER.24H 1 TAB PO DAILY URINARY INCONTINENCE ( Reported) Mirtazapine 15 MG TABLET 1 TAB PO QPM SLEEP (Reported) Montelukast Sodium (Singulair) 10 MG TABLET 1 TAB PO DAILY ASTHMA (Reported) Prednisone 10 MG TABLET 1 TAB PO QDAY ASTHMA 5 PILLS X 3 DAYS, THEN 4 PILLS X 3 DAYS, THEN 3 PILLS X 3 DAYS, THEN 2 PILLS X 3 DAYS, THEN 1 PILL X 3 DAYS, THEN 1/2 PILL X 3 DAYS Ranitidine HCl (Zantac) 300 MG TABLET 1 TAB PO BID GI (Reported) Rosuvastatin Calcium (Crestor) 10 MG TABLET 1 TAB PO DAILY CHOL (Reported) Sertraline HCl 50 MG TABLET 1 TAB PO DAILY MENTAL HEALTH (Reported) Sucralfate (Carafate) 1 GRAM TABLET 1 TAB PO BID PRN GI (Reported) Tiotropium Br/Olodaterol HCl (Stiolto Respimat Inhal [place]) 2.5 MCG-2.5 MCG/ ACTUATION MIST.INHAL 2 PUFF INH QAM ASTHMA (Reported) Topiramate (Topamax) 50 MG TABLET 2 TAB PO BID PRN MIGRAINES (Reported) Verapamil HCl (Verapamil ER) 240 MG TABLET.ER 1 TAB PO DAILY HEART (Reported) Triage Note: TRIAGE: PT TO ER WITH BROTHER C/C DIFFICULTY BREATHING, STATES WAS SEEN HERE THURSDAY FOR SAME AND WAS TOLD SHE HAD BORDERLINE PNEUMONIA. WAS STARTED ON 2 DIFFERENT ABX AND PREDNISONE. DOES NOT FEEL BETTER. REPORTS NON PRODUCTIVE COUGH. PT SPEAKING IN COMPLETE SENTENCES AT TRIAGE WITHOUT DIFFICULTY, R/A SATS WNL, SKIN COLOR GOOD. Triage Nurses Notes Reviewed? yes Onset: Abrupt Duration: day(s): Timing: recent history HPI: 01/18/17 12:36 AM 61-year-old female presents to the emergency department complaining of difficulty breathing. The patient states that she has a history of asthma and COPD. She has been seen in the ED in the last 72 hours. She denies chest pain. No fever. The onset of the symptoms was abrupt, the duration was the past several days, the severity is significant as her symptoms required her to come to the emergency department for care. (LETITIA FINE DO) Past History Travel History Traveled to [place] past 21 day No Medical History Any Pertinent Medical History? see below for history Neurological: migraine, Parkinson's disease EENT: glaucoma Cardiovascular: hyperlipidemia, HYPOTENSION Respiratory: asthma, COPD, emphysema Gastrointestinal: diverticulitis, GERD, hiatal hernia, irritable bowel syndrome Hepatic: NONE Renal: NONE Musculoskeletal: right rotator cuff tendonitis Psychiatric: anxiety, depression Endocrine: hypothyroidism Blood Disorders: NONE Cancer(s): NONE VISITOR SERVICES INFORMATION ASSISTANT/Reproductive: NONE History of MRSA: No History of VRE: No History of CDIFF: No Tetanus Vaccine: 12/22/13 Surgical History Surgical History: non-contributory Psychosocial History Who do you live with Family Services at Home None What is your primary language Norwegian Tobacco Use: Quit >30 days ago ETOH Use: denies use Illicit Drug Use: denies illicit drug use Family History Family History, If Any: MOTHER FH: myocardial infarction FATHER FH: CAD (coronary artery disease) FH: diabetes mellitus FH: HTN (hypertension) FH: stroke Hx Contributory? No (LETITIA FINE DO) Review of Systems Review of Systems Constitutional: Reports: no symptoms. EENTM: Reports: no symptoms. Respiratory: Reports: see HPI. Cardiovascular: Denies: chest pain. GI: Reports: no symptoms. Genitourinary: Reports: no symptoms. Musculoskeletal: Reports: no symptoms. Skin: Reports: no symptoms. Neurological/Psychological: Reports: no symptoms. Hematologic/Endocrine: Reports: no symptoms. Immunologic/Allergic: Reports: no symptoms. All Other Systems: Reviewed and Negative (LETITIA FINE DO) Physical Exam Physical Exam General Appearance: well developed/nourished, alert, awake, anxious, mild distress Head: atraumatic, normal appearance Eyes: Bilateral: normal appearance, PERRL, EOMI. Ears, Nose, Throat: normal pharynx, normal ENT inspection, hearing grossly normal Neck: normal inspection, supple Respiratory: chest non-tender, wheezing Cardiovascular: regular rate/rhythm Peripheral Pulses: 4+ radial (R), 4+ radial (L) Gastrointestinal: non-tender Back: normal range of motion Extremities: normal range of motion Neurologic/Psych: no motor/sensory deficits, awake, alert, oriented x 3 Skin: intact, normal color, warm/dry Core Measures ACS in differential dx? No CVA/TIA Diagnosis: No Severe Sepsis Present: No Septic Shock Present: No (LETITIA FINE DO) Progress Differential Diagnoses I considered the following diagnoses in my evaluation of the patient: [Asthma, COPD, pneumonia, pneumothorax] Plan of Care: Orders Procedure Date/time Status D-DIMER 01/18 627 Active COMPREHENSIVE METABOLIC PANEL 01/18 627 Complete CBC WITHOUT DIFFERENTIAL 01/18 627 Complete Current Medications Sig/Sonia Start time Last Medication Dose Stop Time Status Admin Prednisone 40 MG DAILY 01/18 1000 AC Sodium Chloride 1,000 ML ONCE ONE 01/18 630 AC 01/18 (Normal Saline 0.9%) 01/18 1309 0654 Laboratory Tests 01/18/17 0647: Anion Gap 8, Estimated GFR > 60, BUN/Creatinine Ratio 41.4 H, Glucose 80, Calcium 8.8, Total Bilirubin 0.3, AST 19, ALT 32, Alkaline Phosphatase 82, Total Protein 5.7 L, Albumin 3.5, Globulin 2.2, Albumin/Globulin Ratio 1.6, CBC w Diff MAN DIFF ORDERED, RBC 3.93 L, MCV 80.9 L, MCH 25.5 L, RDW 18.3 H, MPV 9.1, Gran % 64.7, Lymphocytes % 24.4, Monocytes % 9.4 H, Eosinophils % 0.5, Basophils % 1.0, Absolute Granulocytes 10.8 H, Segmented Neutrophils 62, Absolute Lymphocytes 4.1 H, Lymphocytes 34, Monocytes 3, Absolute Monocytes 1.6 H, Absolute Eosinophils 0.1, Absolute Basophils 0.2, Myelocytes 1 H, Platelet Estimate ADEQUATE, Hypochromic-Microcytic 1+, Poikilocytosis 2+, Anisocytosis 1+ , PUBS MCHC 31.6 L Initial ED EKG: PENDING (LETITIA FINE DO) Diagnostic Imaging: Discussed w/RAD: Radiology Read. CXR Impression: PATIENT: WILLOW VILLA PRESENT AGE: 61 PATIENT ACCOUNT NO: [id number] : 53 LOCATION: [facility] ORDERING PHYSICIAN: LETITIA FINE DO SERVICE DATE: 01/18/17 EXAM TYPE: RAD - XRY- PORTABLE CHEST XRAY EXAMINATION: XR PORTABLE CHEST CLINICAL INFORMATION: Cough. Shortness of breath. COMPARISON: 01/14/2017 TECHNIQUE: Portable AP upright view of the chest was obtained. FINDINGS: Lung volumes are low. Lung bases are underpenetrated due to the overlying soft tissues. There is persistent obscuration of the left hemidiaphragm, potentially due to atelectasis, pneumonia , or effusion. Cardiac silhouette is unchanged from prior. Pulmonary vasculature is unremarkable given the low lung volumes. Osseous structures are grossly unremarkable. IMPRESSION: Limited study due to low lung volumes and underpenetration of the soft tissues on this portable study. Opacification obscuring the left hemidiaphragm which could be due to atelectasis, consolidation, or effusion. Consider correlation with a nonportable PA and lateral study when able. DICTATED BY: CELSA GLASS MD DATE/TIME DICTATED:208 TRACK MANAGER:[email or web address] DATE/TIME TRANSCRIBED:01/18/17208 CONFIDENTIAL, DO NOT COPY WITHOUT APPROPRIATE AUTHORIZATION. <Electronically signed in Other Vendor System> SIGNED BY: CELSA GLASS MD 01/18/17 0215 Comments: 01/18/2017 7:32:18 AM patient signed out to me by Dr. 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 Clinical impression of pneumonia with bronchospastic lung disease. I've discussed this case with Dr. Mak and patient to be admitted. (KODY BARRETO,LETITIA Jules) Departure Departure Disposition: STILL A PATIENT Condition: Stable Clinical Impression Primary Impression: COPD (chronic obstructive pulmonary disease) Secondary Impressions: Pneumonia Referrals: LILIA MAKI MD (PCP/Family) Departure Forms: Customer Survey General Discharge Information Comments The patient continued to have bilateral wheezes and complaint of shortness of breath throughout the night despite multiple nebulizers, Labs were ordered. The patient was signed out to Dr. Alvarez at 7 AM she is for admission. IMPRESSION: Limited study due to low lung volumes and underpenetration of the soft tissues on this portable study. Opacification obscuring the left hemidiaphragm which could be due to atelectasis, consolidation, or effusion. Consider correlation with a nonportable PA and lateral study when able. DICTATED BY: CELSA GLASS MD DATE/TIME DICTATED:01/18/17208 TRACK MANAGER:[email or web address] DATE/TIME TRANSCRIBED:01/18/17208 CONFIDENTIAL, DO NOT COPY WITHOUT APPROPRIATE AUTHORIZATION. <Electronically signed in Other Vendor System> SIGNED BY: CELSA GLASS MD 01/18/17214 Admission Note Documentation of Exam: Documentation of any treatments & extenuating circumstances including Concerns Regarding Discharge (functional status, medication knowledge or non-compliance, living conditions, etc.) that warrant an admission rather than observation: [The patient needs admission for IV steroids, IV antibiotics, nebulizers every 4 hours, consider pulmonary consultation.] (LETITIA FINE DO) Admission Note Spoke With: CARLIE MAK MD Documentation of Exam: Documentation of any treatments & extenuating circumstances including Concerns Regarding Discharge (functional status, medication knowledge or non-compliance, living conditions, etc.) that warrant an admission rather than observation: Patient is currently suffering an acute exacerbation of COPD with bronchospasm along with what appears to be a left-sided pneumonia. This places the patient at high risk of respiratory failure sepsis and mortality. I feel this patient now requires hospitalization for IV steroids and nebulized bronchodilators for COPD exacerbation along with IV antibiotics and monitoring of pulse oximetry for her pneumonia. Given the combination of the patient's COPD and pneumonia her respiratory capacity is severely compromised. I do not feel she would be a good candidate for outpatient management and would likely return in worse clinical condition. She would likely have great difficulty in complying with outpatient treatment given the above. Pulmonary and/or infectious disease consultations should be considered. I feel she will require a multiple day hospitalization. (KODY BARRETO,LETITIA Jules) Critical Care Note Critical Care Note Critical Care Time: non-applicable (LETITIA FINE DO) Critical Care Note Critical Care Time: 30-74 min (LETITIA ALVAREZ MD)
--- NOTE | 2017-01-18 00:34 | NUR ---
EVAL BY DR FINE IN 1
--- NOTE | 2017-01-18 01:06 | NUR ---
RESP CALLED FOR TX
--- NOTE | 2017-01-18 01:19 | NUR ---
RESP TX BY RT
--- NOTE | 2017-01-18 02:15 | RADIOLOGY REPORT ---
EXAMINATION: XR PORTABLE CHEST CLINICAL INFORMATION: Cough. Shortness of breath. COMPARISON: 01/14/2017 TECHNIQUE: Portable AP upright view of the chest was obtained. FINDINGS: Lung volumes are low. Lung bases are underpenetrated due to the overlying soft tissues. There is persistent obscuration of the left hemidiaphragm, potentially due to atelectasis, pneumonia, or effusion. Cardiac silhouette is unchanged from prior. Pulmonary vasculature is unremarkable given the low lung volumes. Osseous structures are grossly unremarkable. IMPRESSION: Limited study due to low lung volumes and underpenetration of the soft tissues on this portable study. Opacification obscuring the left hemidiaphragm which could be due to atelectasis, consolidation, or effusion. Consider correlation with a nonportable PA and lateral study when able.
--- NOTE | 2017-01-18 03:10 | NUR ---
DR FINE IN TO RE EVAL 2ND RESP TX ORDERED
--- NOTE | 2017-01-18 03:20 | NUR ---
RT HERE RESP TX GIVEN
--- NOTE | 2017-01-18 04:30 | NUR ---
RESTING QUIETLY JRA O2 SAT =97
--- NOTE | 2017-01-18 05:58 | NUR ---
PT AWAKE, DENIES COMPLAINTS. AWAITING DISPO.
--- NOTE | 2017-01-18 06:24 | NUR ---
MD FINE IN TO REEVAL.
[2017-01-18 07:06] LABS: ABSOLUTE BASOPHIL COUNT 0.2 /CUMM (0.0-0.2); ABSOLUTE EOSINOPHIL COUNT 0.1 /CUMM (0.0-0.7); ABSOLUTE GRANULOCYTE CT 10.8 /CUMM (1.4-6.5); ABSOLUTE LYMPH COUNT 4.1 /CUMM (1.2-3.4); ABSOLUTE MONOCYTE COUNT 1.6 /CUMM (0.10-0.60); GRANULOCYTE % 64.7 % (42.2-75.2); HEMATOCRIT 31.8 % (37-47); MEAN CORPUSCULAR HGB 25.5 PG (27.0-31.0); MEAN CORPUSCULAR HGB CONC 31.6 G/DL (33.0-37.0); MEAN CORPUSCULAR VOLUME 80.9 FL (81.0-99.0); MEAN PLATELET VOLUME 9.1 FL (7.4-10.4); PLATELET COUNT 265 /CUMM (130-400); RBC DISTRIBUTION WIDTH 18.3 % (11.5-14.5); RED BLOOD CELL CT 3.93 /CUMM (4.20-5.40); WHITE BLOOD CELL COUNT 16.7 /CUMM (4.8-10.8)
[2017-01-18 07:07] LABS: EOSINOPHIL % 0.5 % (0-5)
--- NOTE | 2017-01-18 07:52 | NUR ---
D-DIMER DRAWN AND SENT TO LAB BY THIS MST
--- NOTE | 2017-01-18 08:27 | NUR ---
ZIBORIS INFUSING (SEE MAR) OKAY PER PT AND DR GATES.
--- NOTE | 2017-01-18 08:37 | History & Physical ---
QUINTON GHOSH 01/18/17 0836: General Information and HPI MD Statement: I have seen and personally examined WILLOW VILLA and documented this H&P. The patient is a 61 year old F who presented with a patient stated chief complaint of [shortness of breath]. Source of Information: patient Exam Limitations: no limitations History of Present Illness: 61 y/o female with PMH of morbid obesity, may mild asthma, major anxiety, bipolar disorder with significant vocal cord dysfunction, migraines, IBS, GERD, hypothyroidism, urinary incontinence, hyperlipidemia, Parkinson's presentst o ER with shortness of breath, which started about a month. She presented to the ER earlier this month, had postnasal drip, needed an expectorant and got Mucinex D. States that helped a little, and switched 2 boxes of Mucinex expectorant and it started to get worse. She called her PCP, and was put on Cipro and Prednisone. Her symptoms, however, didn't get better. Of note she was here last Thu, had a CXR and was tolde that she has boderline PNA. She was put on Doxycycline and a higher dose of prednsiode taper. She was told to return to the ED if her symtoms continued to persist. States that she felt better by Thursday, and so she never presented to the ER. She states that she renovated her room on Thu, and by Sat couldn't stop coughing, and so was here. She had two breathing treatments and had a CXR same as Thu. Denies bringing up phlegm. Does endorse fever about a week ago Tmax 99.7F, which slowly started to come down. She denies chest pain. States that she gets chest discomfort only when she coughs. Pain is on the left side of rib. Denies nausea, vomiting, swelling of feet, burning sensation, however, does endorse sore throat , acid reflux, and states that her brother has congestion. Denies orthopnea, uses a contour bed at home. Of note she lives with older brother, and requires no assistance for ambulation. Allergies/Medications Allergies: Coded Allergies: peanut (Severe, TONGUE SWELLING, DIFFICULTY BREATHING 01/25/16) pear (Severe, ANAPHYLAXIS 01/25/16) pepper (Severe, PEPPERS - TONGUE SWELLS 01/25/16) walnut (Severe, DIFFICULTY BREATHING 01/25/16) cefazolin (UNKNOWN 01/25/16) cefuroxime (UNKNOWN 01/25/16) ciprofloxacin (ITCHING WITH IV CIPRO ONLY-PT ABLE TO TAKE ORAL 01/18/17) clavulanic acid (From Augmentin) (HIVES, RASH 01/25/16) erythromycin base (From Erythrocin) (RASH 01/25/16) neomycin (UNKNOWN 01/25/16) penicillin V (UNKNOWN 01/25/16) polymyxin B (HIVES 01/25/16) quetiapine (From Seroquel) (BRIGHT RED & ITCHY 01/25/16) wheat (WHEAT SPROUTS - ITCHY 01/25/16) chocolate flavor (CHOCOLATE - MIGRAINS 01/25/16) lactose (DIARRHEA 01/25/16) Past History Travel History Traveled to [place] past 21 day No Medical History Neurological: migraine, Parkinson's disease EENT: glaucoma Cardiovascular: hyperlipidemia, HYPOTENSION Respiratory: asthma, COPD, emphysema Gastrointestinal: diverticulitis, GERD, hiatal hernia, irritable bowel syndrome Hepatic: NONE Renal: NONE Musculoskeletal: right rotator cuff tendonitis Psychiatric: anxiety, depression Endocrine: hypothyroidism Blood Disorders: NONE Cancer(s): NONE DIRECTOR EMBALMER/Reproductive: NONE History of MRSA: No History of VRE: No History of CDIFF: No Tetanus Vaccine: 12/22/13 Surgical History Surgical History: appendectomy, cholecystectomy, hysterectomy, right shoulder rotator cuff repair, hiatal hernia surgery, right ankle broken Past Family/Social History Family History Relations & Conditions if any MOTHER FH: myocardial infarction FATHER FH: CAD (coronary artery disease) FH: diabetes mellitus FH: HTN (hypertension) FH: stroke Psychosocial History Where do you live? Home Who Do You Live With? sibling Services at Home: None Smoking Status: Former Smoker (in high school) ETOH Use: occasional use Illicit Drug Use: denies illicit drug use Functional Ability ADLs Independent: dressing, eating, toileting, bathing. Ambulation: independent IADLs Needs Assist: housework. 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 Denies: chills, diaphoresis. EENTM: Denies: visual changes. Cardiovascular: Reports: chest pain. Denies: edema, orthopena, palpitations, peripheral edema. Respiratory: Reports: cough, short of breath, sputum production, wheezing. Denies: hemoptysis, orthopnea, stridor. GI: Denies: abdominal pain, constipation, diarrhea, nausea, vomiting. Genitourinary: Denies: dysuria, frequency, urgency. Musculoskeletal: Denies: back pain. Neurological/Psychological: Denies: headache, numbness, tingling, tremors. Exam & Diagnostic Data Last 24 Hrs of Vital Signs/I&O Vital Signs Date Time Temp Pulse Resp B/P B/P Pulse O2 O2 Flow FiO2 Mean Ox Delivery Rate 01/18 08 97.2 74 18 116/58 97 Room Air 01/18 0504 96.5 76 18 119/56 98 Room Air 01/18 0121 96 Room Air 01/18 0053 96.6 82 18 110/61 96 Room Air 01/17 2244 98.2 101 20 108/72 96 Room Air Intake & Output 01/18 1600 01/18 0800 01/18 0000 Intake Total Output Total Balance Patient 228 lb Weight Weight Reported by Patient Measurement Method Physical Exam General Appearance Alert, Oriented X3, Cooperative, No Acute Distress, morbidly obese HEENT Atraumatic, PERRLA, EOMI, Mucous Membr. moist/pink Neck Supple, No JVD, No LAD Cardiovascular Regular Rate, Normal S1, Normal S2, No Murmurs Lungs mild bibasilar ronchi and wheezing Abdomen Normal Bowel Sounds, Soft, No Tenderness Neurological Normal Speech, flat affect Extremities No Edema, Normal Pulses, No Tenderness/Swelling Vascular Normal Pulses, Pulses Symmetrical Last 24 Hrs of Labs/Diogenes: Laboratory Tests 01/18/17 0748: D-Dimer High Sensitivty < 200 01/18/17 0647: Anion Gap 8, Estimated GFR > 60, BUN/Creatinine Ratio 41.4 H, Glucose 80, Calcium 8.8, Total Bilirubin 0.3, AST 19, ALT 32, Alkaline Phosphatase 82, Total Protein 5.7 L, Albumin 3.5, Globulin 2.2, Albumin/Globulin Ratio 1.6, CBC w Diff MAN DIFF ORDERED, RBC 3.93 L, MCV 80.9 L, MCH 25.5 L, RDW 18.3 H, MPV 9.1, Gran % 64.7, Lymphocytes % 24.4, Monocytes % 9.4 H, Eosinophils % 0.5, Basophils % 1.0, Absolute Granulocytes 10.8 H, Segmented Neutrophils 62, Absolute Lymphocytes 4.1 H, Lymphocytes 34, Monocytes 3, Absolute Monocytes 1.6 H, Absolute Eosinophils 0.1, Absolute Basophils 0.2, Myelocytes 1 H, Platelet Estimate ADEQUATE, Hypochromic-Microcytic 1+, Poikilocytosis 2+, Anisocytosis 1+ , PUBS MCHC 31.6 L Diagnostic Data CXR Results FINDINGS: Lung volumes are low. Lung bases are underpenetrated due to the overlying soft tissues. There is persistent obscuration of the left hemidiaphragm, potentially due to atelectasis, pneumonia, or effusion. Cardiac silhouette is unchanged from prior. Pulmonary vasculature is unremarkable given the low lung volumes. Osseous structures are grossly unremarkable. IMPRESSION: Limited study due to low lung volumes and underpenetration of the soft tissues on this portable study. Opacification obscuring the left hemidiaphragm which could be due to atelectasis, consolidation, or effusion. Consider correlation with a nonportable PA and lateral study when able. Assessment/Plan Assessment: 61-year-old female with a past medical history of morbid obesity, may mild asthma, major anxiety, bipolar disorder with significant vocal cord dysfunction, migraines, IBS, GERD, hypothyroidism, urinary incontinence, hyperlipidemia, Parkinson's who presented to the ER with chief complaint of difficulty breathing. She was in the ER on January 16, 2017 and was told that she had pneumonia was started on prednisone taper and doxycycline, however, did not report doing any better and endorses nonproductive cough. Vitals at the time of admission blood pressure 116/58, respiratory rate of 18, pulse 74, afebrile saturating 97% on room air. Labs pertinent for leukocytosis with a white blood cell count 16,700, microcytic anemia with H&H of 10.0/31.8, normal platelet count of 265,000. Serum chemistries revealed sodium of 143, potassium of 3.9, bicarbonate of 25, anion gap of 8, B1 29 with a creatinine of 0.7. LFTs unremarkable and AST/alt of 19/ 32, alkaline phosphatase of 82. D-dimer less than 200. Chest x-ray showed opacification obscuring the left hemidiaphragm which could be due to atelectasis, consolidation or effusion. Nuclear stress Echocardiogram was done in February 2016 that showed no evidence of dobutamine induced myocardial ischemia. In the ER she received treatment with albuterol and ipratropium twice, given his MAXIMUM TEMPERATURE 500 mg IV 1 and normal saline thousand and 1. Assessment and plan Admit patient to general medicine. #Shortness of breath Most likely secondary to acute bronchitis versus COPD versus pneumonia patient is afebrile, doesn't have fevers, leukocytosis most likely secondary to being on steroids. Started azithromycin for its anti-inflammatory properties TRC nebs Start her on Solu-Medrol 40 mg IV every 12 and switch to by mouth prednisone 20 mg daily starting tomorrow. Follow-up lower respiratory cultures. Permanent a consult with Dr. Peña #History of migraines Continue on Topamax 100 mg twice a day and verapamil 240 mg daily #History of bipolar disorder Continue on Zoloft and Abilify #History of anxiety Continue on Klonopin #Hyperlipidemia Continue on atorvastatin 40 mg daily #GERD Continue on famotidine 20 mg twice a day by mouth #Hypothyroidism Continue on Synthroid 0.088 mg daily by mouth DVT prophylaxis Heparin 5000units 3 times a day subcutaneous Diet Heart healthy CODE STATUS Full code As Ranked By This Provider Problem List: 1. Bronchitis Core Measures/Miscellaneous Acute Coronary Syndrome ACS Diagnosis: No Cerebrovascular Accident CVA/TIA Diagnosis: No Congestive Heart Failure CHF Diagnosis: No VTE (View Protocol) VTE Risk Factors: Age > 40 No [facility] VTE prophylaxis d/t: No contraindications No VTE Pharm Prophylaxis d/t: No contraindications VTE Diagnosis: No VTE Type: NONE VTE Confirmed by (Test): NONE Sepsis (View Protocol) Severe Sepsis Present: No Septic Shock Septic Shock Present: No Miscellaneous Documentation Attending Case Discussed With: CARLIE SAHU MD Primary Care Physician: LILIA MAKI MD Patient sees these Specialists - Dr. Peña - Pulm - Dr. Bauer - Clothes Wringer - Dr. Lopez - Neurologist - Dr. Car - psych Level of Patient Care: General Medicine Consults Needed: Consulting Specialty: Pulmonary Disease Resident Review Statement Resident Statement: ADMITTED BY RESIDENT CARLIE SAHU MD 01/18/17 1126: General Information and HPI Allergies/Medications Home Med list Albuterol Sulfate (Ventolin Hfa) 90 MCG HFA.AER.AD 2 PUF INH 4XDAILY ASTHMA ( Reported) Aripiprazole (Abilify) 10 MG TABLET 1 TAB PO DAILY MENTAL HEALTH (Reported) Budesonide/Formoterol Fumarate (Symbicort 160-4.5 Mcg Inhaler) 160 MCG-4.5 MCG/ ACTUATION HFA.AER.AD 2 PUF INH BID COPD (Reported) Ciprofloxacin HCl 500 MG TABLET 1 TAB PO BID ANTIBIOTIC (Reported) Clonazepam 0.5 MG TABLET 1 TAB PO TID ANXIETY (Reported) Doxycycline Hyclate 100 MG TABLET 1 TAB PO BID BRONCHITIS/PNEUMONIA Levalbuterol HCl (Xopenex) 0.63 MG/3 ML VIAL.NEB 1 Vial INH/DOMINGA TID PRN SHORTNESS OF BREATH Levothyroxine Sodium 88 MCG TABLET 1 TAB PO DAILY thyroid (Reported) Mirabegron (Myrbetriq) 50 MG TAB.ER.24H 1 TAB PO DAILY URINARY INCONTINENCE ( Reported) Mirtazapine 15 MG TABLET 1 TAB PO QPM SLEEP (Reported) Montelukast Sodium (Singulair) 10 MG TABLET 1 TAB PO DAILY ASTHMA (Reported) Prednisone 10 MG TABLET 1 TAB PO QDAY ASTHMA 5 PILLS X 3 DAYS, THEN 4 PILLS X 3 DAYS, THEN 3 PILLS X 3 DAYS, THEN 2 PILLS X 3 DAYS, THEN 1 PILL X 3 DAYS, THEN 1/2 PILL X 3 DAYS Ranitidine HCl (Zantac) 300 MG TABLET 1 TAB PO BID GI (Reported) Rosuvastatin Calcium (Crestor) 10 MG TABLET 1 TAB PO DAILY CHOL (Reported) Sertraline HCl 50 MG TABLET 1 TAB PO DAILY MENTAL HEALTH (Reported) Sucralfate (Carafate) 1 GRAM TABLET 1 TAB PO BID PRN GI (Reported) Tiotropium Br/Olodaterol HCl (Stiolto Respimat Inhal Freeman) 2.5 MCG-2.5 MCG/ ACTUATION MIST.INHAL 2 PUFF INH QAM ASTHMA (Reported) Topiramate (Topamax) 50 MG TABLET 2 TAB PO BID PRN MIGRAINES (Reported) Verapamil HCl (Verapamil ER) 240 MG TABLET.ER 1 TAB PO DAILY migraines ( Reported) Attending MD Review Statement Attending Statement Attending MD Statement: examined this patient, discuss w/resident/PA/CLOTHES WRINGER, agreed w/resident/PA/CLOTHES WRINGER, reviewed EMR data (avail) Attending Assessment/Plan: Patient was evaluated in the ER. She is currently off oxygen however complains of shortness of breath. She denies cough. General Appearance: Alert, No Acute Distress Skin: Grossly normal HEENT: PEERLA Neck: Supple, No JVD Cardiovascular: Regular Rate, Normal S1, Normal S2, No Murmurs Lungs: Mild expiratory wheeze Abdomen: Normal Bowel Sounds, Soft, No Tenderness Neurological: Normal Speech, Strength at 5/5 X4 Ext, Cranial Nerves 3-12 NL, Reflexes 2+ Extremities: No Clubbing, No Cyanosis, No Edema Vascular: Normal Pulses Assessment 61-year-old female with history of COPD, depression, presenting with acute bronchitis and progressive shortness of breath. She has been treated as outpatient with doxycycline and high-dose prednisone with no improvement in her symptoms. However chest x-ray is not impressive and she does not have a fever. Leukocytosis is likely secondary to recent prednisone. She will be admitted for IV Solu-Medrol. Plan IV Solu-Medrol Hold off antibiotics Continue inhalers Continue other home medications Pulmonary consult DVT prophylaxis Current Medications Sig/Sonia Start time Last Medication Dose Route Stop Time Status Admin Acetaminophen 650 MG Q6P PRN 01/18 0900 AC PO Acetaminophen/ 1 TAB Q6P PRN 01/18 0900 AC Hydrocodone Bitart PO Albuterol Sulfate 3 ML ONCE ONE 01/18 0300 DC 01/18 INH 01/18 0301 0320 Albuterol Sulfate 3 ML ONCE ONE 01/18 0045 DC 01/18 INH 01/18 0046 0120 Aripiprazole 10 MG DAILY 01/18 1013 AC PO Atorvastatin Calcium 40 MG 1700 01/18 1700 AC PO Azithromycin 500 MG DAILY 01/19 1000 AC Sodium Chloride 250 ML IV Azithromycin 500 MG ONCE ONE 01/18 0800 DC 01/18 Sodium Chloride 250 ML IV 01/18 0859 0827 Budesonide/ 2 PUF BID 01/18 1013 AC Formoterol Fumarate INH Clonazepam 0.5 MG TID 01/18 1014 AC PO 01/25 1013 Famotidine 20 MG BID 01/18 1015 AC PO Heparin Sodium 5,000 UNIT Q8 01/18 1400 AC (Porcine) SC Ipratropium [place] 2.5 ML ONCE ONE 01/18 0300 DC 01/18 INH 01/18 0301 0320 Ipratropium [place] 2.5 ML ONCE ONE 01/18 0045 DC 01/18 INH 01/18 0046 0120 Levothyroxine Sodium 0.088 MG DAILY AC 01/18 1014 AC PO Methylprednisolone 40 MG Q12 01/18 1018 AC IV Mirabegron 50 MG DAILY 01/18 1015 AC PO Mirtazapine 15 MG QPM 01/18 2200 AC PO Montelukast Sodium 10 MG DAILY 01/18 1015 AC PO Morphine Sulfate 4 MG Q4P PRN 01/18 0900 AC IV Prednisone 40 MG DAILY 01/18 1000 DC PO Sertraline HCl 50 MG DAILY 01/18 1016 AC PO Sodium Chloride 1,000 ML Q13H 01/18 1030 AC IV 01/18 2329 Sodium Chloride 1,000 ML ONCE ONE 01/18 0630 AC 01/18 IV 01/18 1309 0654 Sucralfate 1,000 MG BID PRN 01/18 1030 AC PO Tiotropium [place] 1 PUF DAILY 01/18 1016 AC INH Topiramate 100 MG BID 01/18 1017 AC PO Verapamil HCl 240 MG DAILY 01/18 1017 AC PO Laboratory Tests 01/18 01/18 0748 0647 Chemistry Sodium (137 - 145 mmol/L) 143 Potassium (3.5 - 5.1 mmol/L) 3.9 Chloride (98 - 107 mmol/L) 110 H Carbon Dioxide (22 - 30 mmol/L) 25 Anion Gap (5 - 16) 8 BUN (7 - 17 mg/dL) 29 H Creatinine (0.5 - 1.0 mg/dL) 0.7 Estimated GFR (>60 ml/min) > 60 BUN/Creatinine Ratio (7 - 25 %) 41.4 H Glucose (65 - 99 mg/dL) 80 Calcium (8.4 - 10.2 mg/dL) 8.8 Total Bilirubin (0.2 - 1.3 mg/dL) 0.3 AST (14 - 36 U/L) 19 ALT (9 - 52 U/L) 32 Alkaline Phosphatase (<127 U/L) 82 Total Protein (6.3 - 8.2 g/dL) 5.7 L Albumin (3.5 - 5.0 g/dL) 3.5 Globulin (1.9 - 4.2 gm/dL) 2.2 Albumin/Globulin Ratio (1.1 - 2.2 %) 1.6 Coagulation D-Dimer High Sensitivty (0 - 243 ng/ml) < 200 Hematology CBC w Diff MAN DIFF ORDERED WBC (4.8 - 10.8 /CUMM) 16.7 H RBC (4.20 - 5.40 /CUMM) 3.93 L Hgb (12.0 - 16.0 G/DL) 10.0 L Hct (37 - 47 %) 31.8 L MCV (81.0 - 99.0 FL) 80.9 L MCH (27.0 - 31.0 PG) 25.5 L RDW (11.5 - 14.5 %) 18.3 H Plt Count (130 - 400 /CUMM) 265 MPV (7.4 - 10.4 FL) 9.1 Gran % (42.2 - 75.2 %) 64.7 Lymphocytes % (20.5 - 51.1 %) 24.4 Monocytes % (1.7 - 9.3 %) 9.4 H Eosinophils % (0 - 5 %) 0.5 Basophils % (0.0 - 2.0 %) 1.0 Absolute Granulocytes (1.4 - 6.5 /CUMM) 10.8 H Segmented Neutrophils (42.2 - 75.2 %) 62 Absolute Lymphocytes (1.2 - 3.4 /CUMM) 4.1 H Lymphocytes (20.5 - 51.1 %) 34 Monocytes (1.7 - 9.3 %) 3 Absolute Monocytes (0.10 - 0.60 /CUMM) 1.6 H Absolute Eosinophils (0.0 - 0.7 /CUMM) 0.1 Absolute Basophils (0.0 - 0.2 /CUMM) 0.2 Myelocytes (0 - 0 %) 1 H Platelet Estimate (ADEQUATE) ADEQUATE Hypochromic-Microcytic 1+ Poikilocytosis 2+ Anisocytosis 1+ PUBS MCHC (33.0 - 37.0 G/DL) 31.6 L Vital Signs Date Time Temp Pulse Resp B/P B/P Pulse O2 O2 Flow FiO2 Mean Ox Delivery Rate 01/18 1110 98.1 81 18 104/70 95 Room Air 01/18 0816 97.2 74 18 116/58 97 Room Air 01/18 0504 96.5 76 18 119/56 98 Room Air 01/18 0121 96 Room Air 01/18 0053 96.6 82 18 110/61 96 Room Air 01/17 2244 98.2 101 20 108/72 96 Room Air
--- NOTE | 2017-01-18 09:15 | NUR ---
BREAKFAST TRAY ORDERED
--- NOTE | 2017-01-18 09:46 | NUR ---
PT ASSIGNED ROOM 238-2
--- NOTE | 2017-01-18 09:58 | NUR ---
HOUSE STAFF TO VIC.
--- NOTE | 2017-01-18 10:18 | NUR ---
REPORT TO BELA PATINO
[2017-01-18 11:10] VITALS: BP 104/70
--- NOTE | 2017-01-18 11:24 | Admission Certification ---
Admission Certification Certification Statement - As attending physician, I certify that at the time of - admission, based on clinical presentation, severity of - symptoms, need for further diagnostic testing and - therapeutic interventions, and risk of adverse outcomes - without in-hospital treatment, in my clinical assessment, - this patient requires an acute hospital stay for a minimum - of two nights or longer. I have also considered psychsocial - factors such as support system, advanced age, financial - issues, cognitive issues, and failed out-patient treatments, - past re-admission history, safety of patient, and lack of - compliance as applicable. Specific rationale supporting this admission is: Acute bronchitis
--- NOTE | 2017-01-18 12:44 | Cons- Pulmonary ---
General Information and HPI Consulting Request Date of Consult: 01/18/17 Requested By: med team History of Present Illness: 61 Y/O female with PMH of .... presentst o ER with shortness of breath, started about a month. She presented to the ER, had postnasal, and needed an expectorant and got Mucinex D. Took that helped a little, and switched 2 boxes of mucinex expectorant and ity started to get worse, called PCP, and he put her on Cipro and Prednisone and didnt get better. Was here last Thu, took a CXR and told her she has boderline PNA,a nd was put on Doxy and higher dose of prednsiode taper. If wasnt better by Thursday. Didnt feel horribly bad, and so didnt come. She [facility] whole room on Thu, by Sat couldnt stop coughing, and so was here. Gave 2 breathing treatment and took CXR dame as thu. Denies pghlegm, had fever about a week - 99.7F, and it slowly started to come down. deneis chest pian. only when she coughs- left side and sides of rib. no nasuea, vomiting, swellign feet, burning sensation ednorses sore throat, endorses acid reflux, has a brother who has congestion. no orthopnea, uses a contour debbie at home, ahasnt changed Lives with older brother, no assistance. Allergies/Medications Allergies: Coded Allergies: peanut (Severe, TONGUE SWELLING, DIFFICULTY BREATHING 01/25/16) pear (Severe, ANAPHYLAXIS 01/25/16) pepper (Severe, PEPPERS - TONGUE SWELLS 01/25/16) walnut (Severe, DIFFICULTY BREATHING 01/25/16) cefazolin (UNKNOWN 01/25/16) cefuroxime (UNKNOWN 01/25/16) ciprofloxacin (ITCHING WITH IV CIPRO ONLY-PT ABLE TO TAKE ORAL 01/18/17) clavulanic acid (From Augmentin) (HIVES, RASH 01/25/16) erythromycin base (From Erythrocin) (RASH 01/25/16) neomycin (UNKNOWN 01/25/16) penicillin V (UNKNOWN 01/25/16) polymyxin B (HIVES 01/25/16) quetiapine (From Seroquel) (BRIGHT RED & ITCHY 01/25/16) wheat (WHEAT SPROUTS - ITCHY 01/25/16) chocolate flavor (CHOCOLATE - MIGRAINS 01/25/16) lactose (DIARRHEA 01/25/16) Home Med List: Albuterol Sulfate (Ventolin Hfa) 90 MCG HFA.AER.AD 2 PUF INH 4XDAILY ASTHMA ( Reported) Aripiprazole (Abilify) 10 MG TABLET 1 TAB PO DAILY MENTAL HEALTH (Reported) Budesonide/Formoterol Fumarate (Symbicort 160-4.5 Mcg Inhaler) 160 MCG-4.5 MCG/ ACTUATION HFA.AER.AD 2 PUF INH BID COPD (Reported) Ciprofloxacin HCl 500 MG TABLET 1 TAB PO BID ANTIBIOTIC (Reported) Clonazepam 0.5 MG TABLET 1 TAB PO TID ANXIETY (Reported) Doxycycline Hyclate 100 MG TABLET 1 TAB PO BID BRONCHITIS/PNEUMONIA Levalbuterol HCl (Xopenex) 0.63 MG/3 ML VIAL.NEB 1 Vial INH/DOMINGA TID PRN SHORTNESS OF BREATH Levothyroxine Sodium 88 MCG TABLET 1 TAB PO DAILY thyroid (Reported) Mirabegron (Myrbetriq) 50 MG TAB.ER.24H 1 TAB PO DAILY URINARY INCONTINENCE ( Reported) Mirtazapine 15 MG TABLET 1 TAB PO QPM SLEEP (Reported) Montelukast Sodium (Singulair) 10 MG TABLET 1 TAB PO DAILY ASTHMA (Reported) Prednisone 10 MG TABLET 1 TAB PO QDAY ASTHMA 5 PILLS X 3 DAYS, THEN 4 PILLS X 3 DAYS, THEN 3 PILLS X 3 DAYS, THEN 2 PILLS X 3 DAYS, THEN 1 PILL X 3 DAYS, THEN 1/2 PILL X 3 DAYS Ranitidine HCl (Zantac) 300 MG TABLET 1 TAB PO BID GI (Reported) Rosuvastatin Calcium (Crestor) 10 MG TABLET 1 TAB PO DAILY CHOL (Reported) Sertraline HCl 50 MG TABLET 1 TAB PO DAILY MENTAL HEALTH (Reported) Sucralfate (Carafate) 1 GRAM TABLET 1 TAB PO BID PRN GI (Reported) Tiotropium Br/Olodaterol HCl (Stiolto Respimat Inhal [place]) 2.5 MCG-2.5 MCG/ ACTUATION MIST.INHAL 2 PUFF INH QAM ASTHMA (Reported) Topiramate (Topamax) 50 MG TABLET 2 TAB PO BID PRN MIGRAINES (Reported) Verapamil HCl (Verapamil ER) 240 MG TABLET.ER 1 TAB PO DAILY migraines ( Reported) Review of Systems Review of Systems Constitutional: Reports: see HPI. Comments Review of Systems Constitutional: Reports: fever, malaise. Denies: chills, diaphoresis. EENTM: Denies: visual changes. Cardiovascular: Reports: chest pain. Denies: edema, orthopena, palpitations, peripheral edema. Respiratory: Reports: cough, short of breath, sputum production, wheezing. Denies: hemoptysis, orthopnea, stridor. GI: Denies: abdominal pain, constipation, diarrhea, nausea, vomiting. Genitourinary: Denies: dysuria, frequency, urgency. Musculoskeletal: Denies: back pain. Neurological/Psychological: Denies: headache, numbness, tingling, tremors. 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 Home Who Do You Live With? sibling Services at Home: None Smoking Status: Former Smoker (in high school) ETOH Use: occasional use Illicit Drug Use: denies illicit drug use Functional Ability ADLs Independent: dressing, eating, toileting, bathing. Ambulation: independent IADLs Needs Assist: housework. 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 Exam & Diagnostic Data Last 24 Hrs of Vital Signs/I&O Vital Signs Date Time Temp Pulse Resp B/P B/P Pulse O2 O2 Flow FiO2 Mean Ox Delivery Rate 01/18 1110 98.1 81 18 104/70 95 Room Air 01/18 0816 97.2 74 18 116/58 97 Room Air 01/18 0504 96.5 76 18 119/56 98 Room Air 01/18 0121 96 Room Air 01/18 0053 96.6 82 18 110/61 96 Room Air 01/17 2244 98.2 101 20 108/72 96 Room Air Intake & Output 01/18 1600 01/18 0800 01/18 0000 Intake Total Output Total Balance Patient 228 lb 228 lb Weight Weight Reported by Patient Reported by Patient Measurement Method Last 48 Hrs of Labs/Diogenes: Laboratory Tests 01/18/17 0748: D-Dimer High Sensitivty < 200 01/18/17 0647: Anion Gap 8, Estimated GFR > 60, BUN/Creatinine Ratio 41.4 H, Glucose 80, Calcium 8.8, Total Bilirubin 0.3, AST 19, ALT 32, Alkaline Phosphatase 82, Total Protein 5.7 L, Albumin 3.5, Globulin 2.2, Albumin/Globulin Ratio 1.6, CBC w Diff MAN DIFF ORDERED, RBC 3.93 L, MCV 80.9 L, MCH 25.5 L, RDW 18.3 H, MPV 9.1, Gran % 64.7, Lymphocytes % 24.4, Monocytes % 9.4 H, Eosinophils % 0.5, Basophils % 1.0, Absolute Granulocytes 10.8 H, Segmented Neutrophils 62, Absolute Lymphocytes 4.1 H, Lymphocytes 34, Monocytes 3, Absolute Monocytes 1.6 H, Absolute Eosinophils 0.1, Absolute Basophils 0.2, Myelocytes 1 H, Platelet Estimate ADEQUATE, Hypochromic-Microcytic 1+, Poikilocytosis 2+, Anisocytosis 1+ , PUBS MCHC 31.6 L Assessment/Plan Impression/Plan: General Appearance: Alert, No Acute Distress Skin: Grossly normal HEENT: PEERLA Neck: Supple, No JVD Cardiovascular: Regular Rate, Normal S1, Normal S2, No Murmurs Lungs: Mild expiratory wheeze Abdomen: Normal Bowel Sounds, Soft, No Tenderness Neurological: Normal Speech, Strength at 5/5 X4 Ext, Cranial Nerves 3-12 NL, Reflexes 2+ Extremities: No Clubbing, No Cyanosis, No Edema Vascular: Normal Pulses CXR IMPRESSION: Limited study due to low lung volumes and underpenetration of the soft tissues on this portable study. Opacification obscuring the left hemidiaphragm which could be due to atelectasis, consolidation, or effusion. Consider correlation with a nonportable PA and lateral study when able. IMRESSION 61-year-old female with a past medical history of morbid obesity, may mild asthma, major anxiety, bipolar disorder with significant vocal cord dysfunction, migraines, IBS, GERD, hypothyroidism, urinary incontinence, hyperlipidemia, Parkinson like features now with Bronchitis Mild asthma with mild chronic obstructive pulmonary disease. 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
[2017-01-18 14:49] VITALS: BP 110/62
[2017-01-18 22:54] VITALS: BP 110/68
[2017-01-19 06:40] VITALS: BP 126/80
--- NOTE | 2017-01-19 07:27 | PN- Housestaff ---
Subjective Follow-up For: - Acute bronchitis Complaints: no complaints Subjective: Patient seen and examined at bedside. She states her breathing is much better. Denies chest discomfort, shortness of breath. Review of Systems Constitutional: Denies: chills, fever, weakness. EENTM: Denies: visual changes. Cardiovascular: Denies: chest pain, orthopena, palpitations. Respiratory: Denies: cough, orthopnea, short of breath, wheezing. Gastrointestinal: Denies: abdominal pain, constipation, diarrhea, nausea, vomiting. Genitourinary: Denies: discharge, frequency, hematuria. Musculoskeletal: Reports: no symptoms. Neurological/Psychological: Denies: headache, numbness, tingling, tremors, unable to move lower ext, unable to move upper ext, weakness. Objective Last 24 Hrs of Vital Signs/I&O Vital Signs Date Time Temp Pulse Resp B/P B/P Pulse O2 O2 Flow FiO2 Mean Ox Delivery Rate 01/19 0640 98.1 73 20 126/80 93 Room Air 01/19 0000 94 Room Air 01/18 2254 98.3 91 20 110/68 94 Room Air 01/18 1925 94 Room Air 01/18 1600 Room Air Room Air 01/18 1500 Room Air 01/18 1500 95 Room Air 01/18 1449 98.9 82 20 110/62 96 01/18 1333 98.1 82 20 104/70 01/18 1110 98.1 81 18 104/70 95 Room Air 01/18 0816 97.2 74 18 116/58 97 Room Air Intake & Output 01/19 0800 01/19 0000 01/18 1600 Intake Total 776 707 5530 Output Total Balance 288 197 6401 Intake, IV 1000 Intake, Oral 300 480 240 Number 2 Bowel Movements Patient 228 lb Weight Weight Reported by Patient Measurement Method Physical Exam General Appearance: Alert, Oriented X3, Cooperative, No Acute Distress HEENT: Atraumatic, PERRLA, EOMI, Mucous Membr. moist/pink Neck: Supple, No JVD Cardiovascular: Normal S1, Normal S2, No Murmurs Lungs: Clear to Auscultation, Normal Air Movement Abdomen: Normal Bowel Sounds, Soft, No Tenderness Neurological: Normal Speech Extremities: No Edema Vascular: Normal Pulses, Pulses Symmetrical Current Medications: Current Medications Sig/Sonia Start time Last Medication Dose Route Stop Time Status Admin Acetaminophen 650 MG Q6P PRN 01/18 0900 AC 01/19 PO 0222 Acetaminophen/ 1 TAB Q6P PRN 01/18 0900 AC Hydrocodone Bitart PO Albuterol Sulfate 3 ML TID 01/18 1600 AC 01/18 INH 1925 Aripiprazole 10 MG DAILY 01/18 1013 AC 01/18 PO 1334 Atorvastatin Calcium 40 MG 1700 01/18 1700 AC 01/18 PO 1613 Azithromycin 500 MG DAILY 01/19 1000 CAN Sodium Chloride 250 ML IV Azithromycin 250 MG DAILY 01/19 1000 AC PO Azithromycin 500 MG ONCE ONE 01/18 0800 DC 01/18 Sodium Chloride 250 ML IV 01/18 0859 0827 Budesonide/ 2 PUF BID 01/18 1013 AC 01/18 Formoterol Fumarate INH 2136 Clonazepam 0.5 MG TID 01/18 1014 AC 01/18 PO 01/25 1013 2135 Famotidine 20 MG BID 01/18 1015 AC 01/18 PO 2135 Heparin Sodium 5,000 UNIT Q8 01/18 1400 AC 01/19 (Porcine) SC 0534 Levothyroxine Sodium 0.088 MG DAILY AC 01/18 1014 AC 01/19 PO 0535 Methylprednisolone 40 MG Q12 01/18 1018 DC 01/18 IV 01/18 2201 2135 Mirabegron 50 MG DAILY 01/18 1015 AC 01/18 PO 1334 Mirtazapine 15 MG QPM 01/18 2200 AC 01/18 PO 2135 Montelukast Sodium 10 MG DAILY 01/18 1015 AC 01/18 PO 1334 Morphine Sulfate 4 MG Q4P PRN 01/18 0900 AC IV Prednisone 20 MG DAILY 01/19 1000 AC PO Prednisone 40 MG DAILY 01/18 1000 DC PO Sertraline HCl 50 MG DAILY 01/18 1016 AC 01/18 PO 1333 Sodium Chloride 1,000 ML Q13H 01/18 1030 DC 01/18 IV 01/18 2329 1431 Sodium Chloride 1,000 ML ONCE ONE 01/18 0630 DC 01/18 IV 01/18 1309 0654 Sucralfate 1,000 MG BID PRN 01/18 1030 AC PO Tiotropium [place] 1 PUF DAILY 01/18 1016 AC 01/18 INH 1330 Topiramate 100 MG BID 01/18 1017 AC 01/18 PO 2135 Verapamil HCl 240 MG DAILY 01/18 1017 AC 01/18 PO 1333 Last 24 Hrs of Lab/Diogenes Results Last 24 Hrs of Labs/Mics: Laboratory Tests 01/18/17 0748: D-Dimer High Sensitivty < 200 Assessment/Plan Assessment: 61-year-old female with a past medical history of morbid obesity, may mild asthma, major anxiety, bipolar disorder with significant vocal cord dysfunction, migraines, IBS, GERD, hypothyroidism, urinary incontinence, hyperlipidemia, Parkinson's who presented to the ER with chief complaint of difficulty breathing. She was in the ER on January 16, 2017 and was told that she had pneumonia was started on prednisone taper and doxycycline, however, did not report doing any better and endorses nonproductive cough. Vitals at the time of admission blood pressure 116/58, respiratory rate of 18, pulse 74, afebrile saturating 97% on room air. Labs pertinent for leukocytosis with a white blood cell count 16,700, microcytic anemia with H&H of 10.0/31.8, normal platelet count of 265,000. Serum chemistries revealed sodium of 143, potassium of 3.9, bicarbonate of 25, anion gap of 8, B1 29 with a creatinine of 0.7. LFTs unremarkable and AST/alt of 19/ 32, alkaline phosphatase of 82. D-dimer less than 200. Chest x-ray showed opacification obscuring the left hemidiaphragm which could be due to atelectasis, consolidation or effusion. Nuclear stress Echocardiogram was done in February 2016 that showed no evidence of dobutamine induced myocardial ischemia. In the ER she received treatment with albuterol and ipratropium twice, given his MAXIMUM TEMPERATURE 500 mg IV 1 and normal saline thousand and 1. Assessment and plan #Shortness of breath Most likely secondary to acute bronchitis as patient is afebrile, doesn't have fevers, leukocytosis most likely secondary to being on steroids. Comtinue azithromycin for its anti-inflammatory properties TRC nebs Switched to by mouth prednisone 20 mg daily starting tomorrow. Follow-up lower respiratory cultures. Pulm consult with Dr. Peña. F/U rec F/U CXR and fluoroscopy toevaluate paralysis of left hemidiaphragm #History of migraines Continue on Topamax 100 mg twice a day and verapamil 240 mg daily #History of bipolar disorder Continue on Zoloft and Abilify #History of anxiety Continue on Klonopin #Hyperlipidemia Continue on atorvastatin 40 mg daily #GERD Continue on famotidine 20 mg twice a day by mouth #Hypothyroidism Continue on Synthroid 0.088 mg daily by mouth DVT prophylaxis Heparin 5000units 3 times a day subcutaneous Diet Heart healthy CODE STATUS Full code Problem List: 1. Bronchitis Pain Ratin Pain Location: n/a Pain Goal: Remain pain free Pain Plan: tylenol Tomorrow's Labs & Rationales: cbc- monitor WBC Consulting Request: Consulting Specialty: Pulmonary Disease
[2017-01-19 09:25] LABS: ABSOLUTE BASOPHIL COUNT 0 /CUMM (0.0-0.2); ABSOLUTE EOSINOPHIL COUNT 0 /CUMM (0.0-0.7); ABSOLUTE GRANULOCYTE CT 13.7 /CUMM (1.4-6.5); ABSOLUTE LYMPH COUNT 1.5 /CUMM (1.2-3.4); ABSOLUTE MONOCYTE COUNT 0.4 /CUMM (0.10-0.60); BASOPHIL % 0.1 % (0.0-2.0); EOSINOPHIL % 0 % (0-5); GRANULOCYTE % 87.8 % (42.2-75.2); HEMATOCRIT 33.9 % (37-47); MEAN CORPUSCULAR HGB 25.4 PG (27.0-31.0); MEAN CORPUSCULAR HGB CONC 31.5 G/DL (33.0-37.0); MEAN CORPUSCULAR VOLUME 80.7 FL (81.0-99.0); MEAN PLATELET VOLUME 8.8 FL (7.4-10.4); PLATELET COUNT 292 /CUMM (130-400); RBC DISTRIBUTION WIDTH 18.5 % (11.5-14.5)
--- NOTE | 2017-01-19 10:45 | RADIOLOGY REPORT ---
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 Shortness of breath. COMPARISON: Several prior chest x-rays, dating back to at least 07/23/2008. TECHNIQUE: With the patient in upright position, under fluoroscopy, but the motion of the right and left hemidiaphragms was assessed with inspiration, expiration and sniffing. Several (5) fluoroscopic spot films were obtained and are archived in PACS. FINDINGS: The right hemidiaphragm is normal with normal excursion on inspiration and expiration and sniffing test seen. The left hemidiaphragm is chronically elevated, unchanged dating back to at least 07/23/2008. On fluoroscopic observation with inspiration and expiration, diminished but appropriate direction of diaphragmatic excursion is seen. No parieto-occipital movement of the diaphragm with sniffing is noted. FLUOROSCOPY TIME: 1.3 minutes. NUMBER OF IMAGES: 5 IMPRESSION: 1. Above findings are consistent with paresis of the left hemidiaphragm. 2. Right hemidiaphragm normal.
[2017-01-19 10:50] LABS: WHITE BLOOD CELL COUNT 15.6 /CUMM (4.8-10.8)
--- NOTE | 2017-01-19 11:41 | RADIOLOGY REPORT ---
EXAMINATION: XR CHEST CLINICAL INFORMATION: Cough. Follow-up of pneumonia. COMPARISON: Several prior chest x-rays, most recent of which is dated 01/18/2017. TECHNIQUE: 2 views of the chest were obtained. FINDINGS: The cardiomediastinal silhouette is within normal limits in size. Low lung volumes are noted with slight elevation of the left hemidiaphragm and left basilar opacities, most consistent with subsegmental atelectasis. No significant effusion is seen. Minimal linear subsegmental atelectasis in the right lung base is seen. There is a convex right thoracic scoliosis, mild kyphosis and diffuse osteopenia. Multilevel mild vertebral endplate spurring is seen. IMPRESSION: Low lung volumes with bibasilar opacities, left greater than right, most consistent with atelectasis. Superimposed or evolving pneumonia in left lung base cannot be entirely excluded and clinical correlation and repeat chest x-ray is recommended for reassessment.
[2017-01-19 14:24] VITALS: BP 120/80
--- NOTE | 2017-01-19 18:45 | PN- Att Addend ---
Attending Addendum Attending Brief Note Patient was admitted yesterday with exacerbation of her bronchitis and questionable infiltrate on chest x-ray. Patient feels better today vital signs are stable and she is a febrile appreciate Dr. Peña's input and recommendations. We'll continue treatment for now 24 TOTALS 01/19 0000 01/18 0000 Intake Total 1720 Output Total Balance 1720 Intake, IV 1000 Intake, Oral 720 Number 2 Bowel Movements Patient 228 lb 228 lb Weight Weight Reported by Patient Reported by Patient Measurement Method Current Medications Sig/Sonia Start time Last Medication Dose Route Stop Time Status Admin Acetaminophen 650 MG .STK-MED ONE 01/19 0222 DC PO 01/19 0223 Acetaminophen 650 MG Q6P PRN 01/18 0900 AC 01/19 PO 0222 Acetaminophen/ 1 TAB Q6P PRN 01/18 0900 AC Hydrocodone Bitart PO Albuterol Sulfate 3 ML TID 01/18 1600 AC 01/19 INH 1258 Aripiprazole 10 MG DAILY 01/18 1013 AC 01/19 PO 1025 Atorvastatin Calcium 40 MG 1700 01/18 1700 AC 01/19 PO 1634 Azithromycin 250 MG DAILY 01/19 1000 AC 01/19 PO 1024 Budesonide/ 2 PUF BID 01/18 1013 AC 01/19 Formoterol Fumarate INH 1023 Clonazepam 0.5 MG TID 01/18 1014 AC 01/19 PO 01/25 1013 1634 Famotidine 20 MG BID 01/18 1015 AC 01/19 PO 1024 Heparin Sodium 5,000 UNIT Q8 01/18 1400 AC 01/19 (Porcine) SC 1344 Levothyroxine Sodium 0.088 MG DAILY AC 01/18 1014 AC 01/19 PO 0535 Methylprednisolone 40 MG Q12 01/18 1018 DC 01/18 IV 01/18 2201 2135 Mirabegron 50 MG DAILY 01/18 1015 AC 01/19 PO 1024 Mirtazapine 15 MG QPM 01/18 2200 AC 01/18 PO 2135 Montelukast Sodium 10 MG DAILY 01/18 1015 AC 01/19 PO 1024 Morphine Sulfate 4 MG Q4P PRN 01/18 0900 AC IV Prednisone 20 MG DAILY 01/19 1000 AC 01/19 PO 1024 Sertraline HCl 50 MG DAILY 01/18 1016 AC 01/19 PO 1024 Sodium Chloride 1,000 ML Q13H 01/18 1030 DC 01/18 IV 01/18 2329 1431 Sucralfate 1,000 MG BID PRN 01/18 1030 AC PO Tiotropium [place] 1 PUF DAILY 01/18 1016 AC 01/19 INH 1022 Topiramate 100 MG BID 01/18 1017 AC 01/19 PO 1024 Verapamil HCl 240 MG DAILY 01/18 1017 AC 01/19 PO 1025 Laboratory Tests 01/19/17 0820: Anion Gap 10, Estimated GFR > 60, BUN/Creatinine Ratio 30.0 H, CBC w Diff NO MAN DIFF REQ, RBC 4.20, MCV 80.7 L, MCH 25.4 L, RDW 18.5 H, MPV 8.8, Gran % 87.8 H, Lymphocytes % 9.7 L, Monocytes % 2.4, Eosinophils % 0, Basophils % 0.1 , Absolute Granulocytes 13.7 H, Absolute Lymphocytes 1.5, Absolute Monocytes 0.4, Absolute Eosinophils 0, Absolute Basophils 0, PUBS MCHC 31.5 L 01/18/17 0748: D-Dimer High Sensitivty < 200 01/18/17 0647: Anion Gap 8, Estimated GFR > 60, BUN/Creatinine Ratio 41.4 H, Glucose 80, Calcium 8.8, Total Bilirubin 0.3, AST 19, ALT 32, Alkaline Phosphatase 82, Total Protein 5.7 L, Albumin 3.5, Globulin 2.2, Albumin/Globulin Ratio 1.6, CBC w Diff MAN DIFF ORDERED, RBC 3.93 L, MCV 80.9 L, MCH 25.5 L, RDW 18.3 H, MPV 9.1, Gran % 64.7, Lymphocytes % 24.4, Monocytes % 9.4 H, Eosinophils % 0.5, Basophils % 1.0, Absolute Granulocytes 10.8 H, Segmented Neutrophils 62, Absolute Lymphocytes 4.1 H, Lymphocytes 34, Monocytes 3, Absolute Monocytes 1.6 H, Absolute Eosinophils 0.1, Absolute Basophils 0.2, Myelocytes 1 H, Platelet Estimate ADEQUATE, Hypochromic-Microcytic 1+, Poikilocytosis 2+, Anisocytosis 1+ , PUBS MCHC 31.6 L
[2017-01-19 21:19] VITALS: BP 120/77
[2017-01-20 07:18] VITALS: BP 112/70
--- NOTE | 2017-01-20 07:38 | PN- Housestaff ---
Subjective Follow-up For: Acute bronchitis Objective Last 24 Hrs of Vital Signs/I&O Vital Signs Date Time Temp Pulse Resp B/P B/P Pulse O2 O2 Flow FiO2 Mean Ox Delivery Rate 01/20 718 98.2 76 20 112/70 95 Room Air 01/19 2119 98.7 88 20 120/77 95 01/19 1920 96 Room Air 01/19 1424 98.2 83 20 120/80 95 01/19 1025 70 128/72 01/19 09 94 Room Air 01/19 0800 Room Air Intake & Output 01/20 0800 01/20 0000 01/19 1600 Intake Total 120 750 Output Total Balance 120 750 Intake, Oral 120 750 Current Medications: Current Medications Sig/Sonia Start time Last Medication Dose Route Stop Time Status Admin Acetaminophen 650 MG Q6P PRN 01/18 0900 AC 01/19 PO 0222 Acetaminophen/ 1 TAB Q6P PRN 01/18 0900 AC Hydrocodone Bitart PO Albuterol Sulfate 3 ML TID 01/18 1600 AC 01/19 INH 1918 Aripiprazole 10 MG DAILY 01/18 1013 AC 01/19 PO 1025 Atorvastatin Calcium 40 MG 1700 01/18 1700 AC 01/19 PO 1634 Azithromycin 250 MG DAILY 01/19 1000 AC 01/19 PO 1024 Budesonide/ 2 PUF BID 01/18 1013 AC 01/19 Formoterol Fumarate INH 2145 Clonazepam 0.5 MG TID 01/18 1014 AC 01/19 PO 01/25 1013 2144 Famotidine 20 MG BID 01/18 1015 AC 01/19 PO 2144 Heparin Sodium 5,000 UNIT Q8 01/18 1400 AC 01/20 (Porcine) SC 0548 Levothyroxine Sodium 0.088 MG DAILY AC 01/18 1014 AC 01/20 PO 0548 Mirabegron 50 MG DAILY 01/18 1015 AC 01/19 PO 1024 Mirtazapine 15 MG QPM 01/18 2200 AC 01/19 PO 2144 Montelukast Sodium 10 MG DAILY 01/18 1015 AC 01/19 PO 1024 Morphine Sulfate 4 MG Q4P PRN 01/18 0900 AC IV Prednisone 20 MG DAILY 01/19 1000 AC 01/19 PO 1024 Sertraline HCl 50 MG DAILY 01/18 1016 AC 01/19 PO 1024 Sucralfate 1,000 MG BID PRN 01/18 1030 AC PO Tiotropium [place] 1 PUF DAILY 01/18 1016 AC 01/19 INH 1022 Topiramate 100 MG BID 01/18 1017 AC 01/19 PO 2144 Verapamil HCl 240 MG DAILY 01/18 1017 AC 01/19 PO 1025 Last 24 Hrs of Lab/Diogenes Results Last 24 Hrs of Labs/Mics: Laboratory Tests 01/19/17 0820: Anion Gap 10, Estimated GFR > 60, BUN/Creatinine Ratio 30.0 H, CBC w Diff NO MAN DIFF REQ, RBC 4.20, MCV 80.7 L, MCH 25.4 L, RDW 18.5 H, MPV 8.8, Gran % 87.8 H, Lymphocytes % 9.7 L, Monocytes % 2.4, Eosinophils % 0, Basophils % 0.1 , Absolute Granulocytes 13.7 H, Absolute Lymphocytes 1.5, Absolute Monocytes 0.4, Absolute Eosinophils 0, Absolute Basophils 0, PUBS MCHC 31.5 L Assessment/Plan Assessment: 61-year-old female with a past medical history of morbid obesity, may mild asthma, major anxiety, bipolar disorder with significant vocal cord dysfunction, migraines, IBS, GERD, hypothyroidism, urinary incontinence, hyperlipidemia, Parkinson's who presented to the ER with chief complaint of difficulty breathing. She was in the ER on January 16, 2017 and was told that she had pneumonia was started on prednisone taper and doxycycline, however, did not report doing any better and endorses nonproductive cough. Vitals at the time of admission blood pressure 116/58, respiratory rate of 18, pulse 74, afebrile saturating 97% on room air. Labs pertinent for leukocytosis with a white blood cell count 16,700, microcytic anemia with H&H of 10.0/31.8, normal platelet count of 265,000. Serum chemistries revealed sodium of 143, potassium of 3.9, bicarbonate of 25, anion gap of 8, B1 29 with a creatinine of 0.7. LFTs unremarkable and AST/alt of 19/ 32, alkaline phosphatase of 82. D-dimer less than 200. Chest x-ray showed opacification obscuring the left hemidiaphragm which could be due to atelectasis, consolidation or effusion. Nuclear stress Echocardiogram was done in February 2016 that showed no evidence of dobutamine induced myocardial ischemia. In the ER she received treatment with albuterol and ipratropium twice, given his MAXIMUM TEMPERATURE 500 mg IV 1 and normal saline thousand and 1. Assessment and plan #Shortness of breath Most likely secondary to acute bronchitis as patient is afebrile, doesn't have fevers, leukocytosis most likely secondary to being on steroids. Comtinue azithromycin for its anti-inflammatory properties TRC nebs Switched to by mouth prednisone 20 mg daily starting tomorrow. Follow-up lower respiratory cultures. Pulm consult with Dr. Peña. F/U rec F/U CXR and fluoroscopy toevaluate paralysis of left hemidiaphragm #History of migraines Continue on Topamax 100 mg twice a day and verapamil 240 mg daily #History of bipolar disorder Continue on Zoloft and Abilify #History of anxiety Continue on Klonopin #Hyperlipidemia Continue on atorvastatin 40 mg daily #GERD Continue on famotidine 20 mg twice a day by mouth #Hypothyroidism Continue on Synthroid 0.088 mg daily by mouth DVT prophylaxis Heparin 5000units 3 times a day subcutaneous Diet Heart healthy CODE STATUS Full code Consulting Request: Consulting Specialty: Pulmonary Disease
--- NOTE | 2017-01-20 07:39 | PN- Housestaff ---
Subjective Follow-up For: Acute bronchitis Complaints: no complaints Subjective: Patient seen and examined at bedside. She does endorse mild wheezing and cough, but denies chest pain, shortness of breath, nausea, vomitng, fever, chills. She underwent an sniff test yesterday, which confirmed paresis of the left hemidiaphragm which remains unchanged. Review of Systems Constitutional: Denies: chills, fever, weakness. Cardiovascular: Denies: chest pain, orthopena, palpitations. Respiratory: Reports: cough. Denies: hemoptysis. Gastrointestinal: Denies: abdominal pain, constipation, diarrhea, nausea, vomiting. Genitourinary: Denies: frequency, urgency. Musculoskeletal: Reports: see HPI. Neurological/Psychological: Denies: headache, numbness, tingling, tremors. Objective Last 24 Hrs of Vital Signs/I&O Vital Signs Date Time Temp Pulse Resp B/P B/P Pulse O2 O2 Flow FiO2 Mean Ox Delivery Rate 01/20 07 98.2 76 20 112/70 95 Room Air 01/19 2119 98.7 88 20 120/77 95 01/19 1920 96 Room Air 01/19 1424 98.2 83 20 120/80 95 01/19 1025 70 128/72 01/19 0917 94 Room Air 01/19 0800 Room Air Intake & Output 01/20 0800 01/20 0000 01/19 1600 Intake Total 120 750 Output Total Balance 120 750 Intake, Oral 120 750 Physical Exam General Appearance: Alert, Oriented X3, Cooperative, No Acute Distress HEENT: Atraumatic, PERRLA, EOMI, dry m,ucous membranes Neck: Supple, No JVD, No LAD Cardiovascular: Normal S1, Normal S2 Lungs: mild wheezing bilaterally Abdomen: Normal Bowel Sounds, Soft, No Tenderness Neurological: Normal Speech Current Medications: Current Medications Sig/Sonia Start time Last Medication Dose Route Stop Time Status Admin Acetaminophen 650 MG Q6P PRN 01/18 0900 AC 01/19 PO 0222 Acetaminophen/ 1 TAB Q6P PRN 01/18 0900 AC Hydrocodone Bitart PO Albuterol Sulfate 3 ML TID 01/18 1600 AC 01/19 INH 1918 Aripiprazole 10 MG DAILY 01/18 1013 AC 01/19 PO 1025 Atorvastatin Calcium 40 MG 1700 01/18 1700 AC 01/19 PO 1634 Azithromycin 250 MG DAILY 01/19 1000 AC 01/19 PO 1024 Budesonide/ 2 PUF BID 01/18 1013 AC 01/19 Formoterol Fumarate INH 2145 Clonazepam 0.5 MG TID 01/18 1014 AC 01/19 PO 01/25 1013 2144 Famotidine 20 MG BID 01/18 1015 AC 01/19 PO 2144 Heparin Sodium 5,000 UNIT Q8 01/18 1400 AC 01/20 (Porcine) SC 0548 Levothyroxine Sodium 0.088 MG DAILY AC 01/18 1014 AC 01/20 PO 0548 Mirabegron 50 MG DAILY 01/18 1015 AC 01/19 PO 1024 Mirtazapine 15 MG QPM 01/18 2200 AC 01/19 PO 2144 Montelukast Sodium 10 MG DAILY 01/18 1015 AC 01/19 PO 1024 Morphine Sulfate 4 MG Q4P PRN 01/18 0900 AC IV Prednisone 20 MG DAILY 01/19 1000 AC 01/19 PO 1024 Sertraline HCl 50 MG DAILY 01/18 1016 AC 01/19 PO 1024 Sucralfate 1,000 MG BID PRN 01/18 1030 AC PO Tiotropium [place] 1 PUF DAILY 01/18 1016 AC 01/19 INH 1022 Topiramate 100 MG BID 01/18 1017 AC 01/19 PO 2144 Verapamil HCl 240 MG DAILY 01/18 1017 AC 01/19 PO 1025 Last 24 Hrs of Lab/Diogenes Results Last 24 Hrs of Labs/Mics: Laboratory Tests 01/19/17 0820: Anion Gap 10, Estimated GFR > 60, BUN/Creatinine Ratio 30.0 H, CBC w Diff NO MAN DIFF REQ, RBC 4.20, MCV 80.7 L, MCH 25.4 L, RDW 18.5 H, MPV 8.8, Gran % 87.8 H, Lymphocytes % 9.7 L, Monocytes % 2.4, Eosinophils % 0, Basophils % 0.1 , Absolute Granulocytes 13.7 H, Absolute Lymphocytes 1.5, Absolute Monocytes 0.4, Absolute Eosinophils 0, Absolute Basophils 0, PUBS MCHC 31.5 L Orders Radiology Findings: SERVICE DATE: 01/19/17-999 EXAM TYPE: RAD - XRY-CHEST XRAY, PA AND LATERAL FINDINGS: The cardiomediastinal silhouette is within normal limits in size. Low lung volumes are noted with slight elevation of the left hemidiaphragm and left basilar opacities, most consistent with subsegmental atelectasis. No significant effusion is seen. Minimal linear subsegmental atelectasis in the right lung base is seen. There is a convex right thoracic scoliosis, mild kyphosis and diffuse osteopenia. Multilevel mild vertebral endplate spurring is seen. IMPRESSION: Low lung volumes with bibasilar opacities, left greater than right, most consistent with atelectasis. Superimposed or evolving pneumonia in left lung base cannot be entirely excluded and clinical correlation and repeat chest x-ray is recommended for reassessment. SERVICE DATE: 01/19/17 EXAM TYPE: RAD - XRY-FLUOROSCOPY,INDEPEND PROC FINDINGS: The right hemidiaphragm is normal with normal excursion on inspiration and expiration and sniffing test seen. The left hemidiaphragm is chronically elevated, unchanged dating back to at least 07/23/2008. On fluoroscopic observation with inspiration and expiration, diminished but appropriate direction of diaphragmatic excursion is seen. No parieto-occipital movement of the diaphragm with sniffing is noted. FLUOROSCOPY TIME: 1.3 minutes. NUMBER OF IMAGES: 5 IMPRESSION: 1. Above findings are consistent with paresis of the left hemidiaphragm. 2. Right hemidiaphragm normal. Assessment/Plan Assessment: 61-year-old female with a past medical history of morbid obesity, may mild asthma, major anxiety, bipolar disorder with significant vocal cord dysfunction, migraines, IBS, GERD, hypothyroidism, urinary incontinence, hyperlipidemia, Parkinson's who presented to the ER with chief complaint of difficulty breathing. She was in the ER on January 16, 2017 and was told that she had pneumonia was started on prednisone taper and doxycycline, however, did not report doing any better and endorses nonproductive cough. Vitals at the time of admission blood pressure 116/58, respiratory rate of 18, pulse 74, afebrile saturating 97% on room air. Labs pertinent for leukocytosis with a white blood cell count 16,700, microcytic anemia with H&H of 10.0/31.8, normal platelet count of 265,000. Serum chemistries revealed sodium of 143, potassium of 3.9, bicarbonate of 25, anion gap of 8, B1 29 with a creatinine of 0.7. LFTs unremarkable and AST/alt of 19/ 32, alkaline phosphatase of 82. D-dimer less than 200. Chest x-ray showed opacification obscuring the left hemidiaphragm which could be due to atelectasis, consolidation or effusion. Nuclear stress Echocardiogram was done in February 2016 that showed no evidence of dobutamine induced myocardial ischemia. In the ER she received treatment with albuterol and ipratropium twice, given his MAXIMUM TEMPERATURE 500 mg IV 1 and normal saline thousand and 1. Assessment and plan #Shortness of breath Most likely secondary to acute bronchitis as patient is afebrile, doesn't have fevers, leukocytosis most likely secondary to being on steroids. Continue azithromycin for its anti-inflammatory properties (Day 3 today) TRC nebs Switched to by mouth prednisone 20 mg daily yesterday, however, will increase it to 40mg daily today and provide a slow taper. Pulm consult with Dr. Peña. F/U rec F/U CXR showed low lung volumes with bibasilar opacities L>>R, c/w atelectasis. 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 She will have some dyspnea on exertion given paresis. #History of migraines Continue on Topamax 100 mg twice a day and verapamil 240 mg daily #History of bipolar disorder Continue on Zoloft and Abilify #History of anxiety Continue on Klonopin #Hyperlipidemia Continue on atorvastatin 40 mg daily #GERD Continue on famotidine 20 mg twice a day by mouth #Hypothyroidism Continue on Synthroid 0.088 mg daily by mouth DVT prophylaxis Heparin 5000units 3 times a day subcutaneous Diet Heart healthy CODE STATUS Full code Problem List: 1. Bronchitis Pain Ratin Pain Location: n/a Pain Goal: Remain pain free Pain Plan: tylenol Tomorrow's Labs & Rationales: na Consulting Request: Consulting Specialty: Pulmonary Disease
[2017-01-20 08:56] LABS: ABSOLUTE BASOPHIL COUNT 0 /CUMM (0.0-0.2); ABSOLUTE EOSINOPHIL COUNT 0.1 /CUMM (0.0-0.7); ABSOLUTE GRANULOCYTE CT 11.1 /CUMM (1.4-6.5); ABSOLUTE MONOCYTE COUNT 1.3 /CUMM (0.10-0.60); BASOPHIL % 0 % (0.0-2.0); EOSINOPHIL % 0.5 % (0-5); GRANULOCYTE % 67.2 % (42.2-75.2); HEMATOCRIT 32.8 % (37-47); MEAN CORPUSCULAR HGB 25.8 PG (27.0-31.0); MEAN CORPUSCULAR HGB CONC 31.9 G/DL (33.0-37.0); MEAN CORPUSCULAR VOLUME 80.9 FL (81.0-99.0); MEAN PLATELET VOLUME 9.5 FL (7.4-10.4); PLATELET COUNT 265 /CUMM (130-400); RBC DISTRIBUTION WIDTH 18.5 % (11.5-14.5); RED BLOOD CELL CT 4.06 /CUMM (4.20-5.40); WHITE BLOOD CELL COUNT 16.5 /CUMM (4.8-10.8)
--- NOTE | 2017-01-20 10:30 | PN- Pulmonary ---
Subjective HPI/Critical Care Issues: DOing well stable Objective Current Medications: Current Medications Sig/Sonia Start time Last Medication Dose Route Stop Time Status Admin Acetaminophen 650 MG Q6P PRN 01/18 0900 AC 01/19 PO 0222 Acetaminophen/ 1 TAB Q6P PRN 01/18 0900 AC Hydrocodone Bitart PO Albuterol Sulfate 3 ML TID 01/18 1600 AC 01/20 INH 0757 Aripiprazole 10 MG DAILY 01/18 1013 AC 01/19 PO 1025 Atorvastatin Calcium 40 MG 1700 01/18 1700 AC 01/19 PO 1634 Azithromycin 250 MG DAILY 01/19 1000 AC 01/19 PO 1024 Benzonatate 100 MG TID 01/20 1000 AC PO Budesonide/ 2 PUF BID 01/18 1013 AC 01/19 Formoterol Fumarate INH 2145 Clonazepam 0.5 MG TID 01/18 1014 AC 01/19 PO 01/25 1013 2144 Famotidine 20 MG BID 01/18 1015 AC 01/19 PO 2144 Heparin Sodium 5,000 UNIT Q8 01/18 1400 AC 01/20 (Porcine) SC 0548 Levothyroxine Sodium 0.088 MG DAILY AC 01/18 1014 AC 01/20 PO 0548 Mirabegron 50 MG DAILY 01/18 1015 AC 01/19 PO 1024 Mirtazapine 15 MG QPM 01/18 2200 AC 01/19 PO 2144 Montelukast Sodium 10 MG DAILY 01/18 1015 AC 01/19 PO 1024 Morphine Sulfate 4 MG Q4P PRN 01/18 0900 AC IV Prednisone 40 MG DAILY 01/20 1000 AC PO Prednisone 20 MG DAILY 01/19 1000 DC 01/19 PO 1024 Sertraline HCl 50 MG DAILY 01/18 1016 AC 01/19 PO 1024 Sucralfate 1,000 MG BID PRN 01/18 1030 AC PO Tiotropium [place] 1 PUF DAILY 01/18 1016 AC 01/19 INH 1022 Topiramate 100 MG BID 01/18 1017 AC 01/19 PO 2144 Verapamil HCl 240 MG DAILY 01/18 1017 AC 01/19 PO 1025 Vital Signs & I&O Last 24 Hrs of Vitals and I&O: Vital Signs Date Time Temp Pulse Resp B/P B/P Pulse O2 O2 Flow FiO2 Mean Ox Delivery Rate 01/20 0800 Room Air 01/20 0800 97 Room Air Room Air 01/20 0718 98.2 76 20 112/70 95 Room Air 01/199 98.7 88 20 120/77 95 01/19 1920 96 Room Air 01/19 1424 98.2 83 20 120/80 95 Intake & Output 01/20 1600 01/20 0800 01/20 0000 Intake Total 120 Output Total Balance 120 Intake, Oral 120 Impression/Plan Impression/Plan Impression/Plan: General Appearance: Alert, No Acute Distress Skin: Grossly normal HEENT: PEERLA Neck: Supple, No JVD Cardiovascular: Regular Rate, Normal S1, Normal S2, No Murmurs Lungs: Mild expiratory wheeze Abdomen: Normal Bowel Sounds, Soft, No Tenderness Neurological: Normal Speech, Strength at 5/5 X4 Ext, Cranial Nerves 3-12 NL, Reflexes 2+ Extremities: No Clubbing, No Cyanosis, No Edema Vascular: Normal Pulses CXR IMPRESSION: Limited study due to low lung volumes and underpenetration of the soft tissues on this portable study. Opacification obscuring the left hemidiaphragm which could be due to atelectasis, consolidation, or effusion. Consider correlation with a nonportable PA and lateral study when able. FLuroscopy left sided diaphramatic paralysis IMRESSION 61-year-old female with a past medical history of morbid obesity, may mild asthma, major anxiety, bipolar disorder with significant vocal cord dysfunction, migraines, IBS, GERD, hypothyroidism, urinary incontinence, hyperlipidemia, Parkinson like features now with Bronchitis Mild asthma with mild chronic obstructive pulmonary disease. 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
[2017-01-20] MEDS ORDERED: PREDNISONE20 M1 PO (12:49)
[2017-01-20] MEDS ORDERED: AZITHROMYCIN250 M1 PO (12:49)
--- NOTE | 2017-01-20 12:51 | Patient Discharge Instructions ---
Discharge Instructions General Discharge Information You were seen/treated for: - Acute bronchitis Special Instructions: Please follow upw ith your primary care physician in one week. Please followup with your operator maintainer in one week. Diet Recommended Diet: Regular Activity Activity Self Limited: Yes Acute Coronary Syndrome Inclusion Criteria At DC or during hospital stay patient has or had the following: ACS DIAGNOSIS No Discharge Core Measures Meds if any: Prescribed or Continued at Discharge Meds if any: NOT Prescribed or Continued at Discharge Congestive Heart Failure Inclusion Criteria At DC or during hospital stay patient has or had the following: CHF DIAGNOSIS No Discharge Core Measures Meds if any: Prescribed or Continued at Discharge Meds if any: NOT Prescribed or Continued at Discharge Cerebrovascular accident Inclusion Criteria At DC or during hospital stay patient has or had the following: CVA/TIA Diagnosis No Discharge Core Measures Meds if any: Prescribed or Continued at Discharge Meds if any: NOT Prescribed or Continued at Discharge Venous thromboembolism Inclusion Criteria VTE Diagnosis No VTE Type NONE VTE Confirmed by (Test) NONE Discharge Core Measures - Per Current guidelines, there needs to be overlap - treatment for the first 5 days of Warfarin therapy. - If discharged on Warfarin prior to 5 days of - overlap therapy, the patient will need to be - assessed for post discharge needs including - *Post discharge parental anticoagulation - *Warfarin and/or parental anticoagulation education - *Follow up date to check INR post discharge At least 5 days overlap therapy as Inpatient No Meds if any: Prescribed or Continued at Discharge Note: Overlap Therapy is Warfarin and Anticoagulant Meds if any: NOT Prescribed or Continued at Discharge
--- NOTE | 2017-01-20 13:10 | PN- Att Addend ---
Attending Addendum Attending Brief Note Patient laying in bed comfortable in no respiratory distress and vital signs are stable no fever and no major changes on physical. We'll continue therapy as recommended by pulmonary to get out of bed, continue total respiratory care 24 TOTALS 01/20 0000 01/19 0000 Intake Total 1050 1720 Output Total Balance 1050 1720 Intake, IV 1000 Intake, Oral 1050 720 Number 2 Bowel Movements Patient 228 lb Weight Weight Reported by Patient Measurement Method Current Medications Sig/Sonia Start time Last Medication Dose Route Stop Time Status Admin Acetaminophen 650 MG Q6P PRN 01/18 0900 AC 01/19 PO 0222 Acetaminophen/ 1 TAB Q6P PRN 01/18 0900 AC Hydrocodone Bitart PO Albuterol Sulfate 3 ML TID 01/18 1600 AC 01/20 INH 0757 Aripiprazole 10 MG DAILY 01/18 1013 AC 01/20 PO 1053 Atorvastatin Calcium 40 MG 1700 01/18 1700 AC 01/19 PO 1634 Azithromycin 250 MG DAILY 01/19 1000 AC 01/20 PO 1054 Benzonatate 100 MG TID 01/20 1000 AC 01/20 PO 1054 Budesonide/ 2 PUF BID 01/18 1013 AC 01/20 Formoterol Fumarate INH 1057 Clonazepam 0.5 MG TID 01/18 1014 AC 01/20 PO 01/25 1013 1056 Famotidine 20 MG BID 01/18 1015 AC 01/20 PO 1054 Heparin Sodium 5,000 UNIT Q8 01/18 1400 AC 01/20 (Porcine) SC 0548 Levothyroxine Sodium 0.088 MG DAILY AC 01/18 1014 AC 01/20 PO 0548 Mirabegron 50 MG DAILY 01/18 1015 AC 01/20 PO 1054 Mirtazapine 15 MG QPM 01/18 2200 AC 01/19 PO 2144 Montelukast Sodium 10 MG DAILY 01/18 1015 AC 01/20 PO 1054 Morphine Sulfate 4 MG Q4P PRN 01/18 0900 AC IV Prednisone 20 MG DAILY 01/21 1000 AC PO Prednisone 40 MG DAILY 01/20 1000 DC 01/20 PO 1055 Prednisone 20 MG DAILY 01/19 1000 DC 01/19 PO 1024 Sertraline HCl 50 MG DAILY 01/18 1016 AC 01/20 PO 1054 Sucralfate 1,000 MG BID PRN 01/18 1030 AC PO Tiotropium [place] 1 PUF DAILY 01/18 1016 AC 01/20 INH 1056 Topiramate 100 MG BID 01/18 1017 AC 01/20 PO 1054 Verapamil HCl 240 MG DAILY 01/18 1017 AC 01/20 PO 1054 Laboratory Tests 01/20/17 0620: CBC w Diff NO MAN DIFF REQ, RBC 4.06 L, MCV 80.9 L, MCH 25.8 L, RDW 18.5 H, MPV 9.5, Gran % 67.2, Lymphocytes % 24.5, Monocytes % 7.8, Eosinophils % 0.5, Basophils % 0 L, Absolute Granulocytes 11.1 H, Absolute Lymphocytes 4.0 H, Absolute Monocytes 1.3 H, Absolute Eosinophils 0.1, Absolute Basophils 0, PUBS MCHC 31.9 L 01/19/17 0820: Anion Gap 10, Estimated GFR > 60, BUN/Creatinine Ratio 30.0 H, CBC w Diff NO MAN DIFF REQ, RBC 4.20, MCV 80.7 L, MCH 25.4 L, RDW 18.5 H, MPV 8.8, Gran % 87.8 H, Lymphocytes % 9.7 L, Monocytes % 2.4, Eosinophils % 0, Basophils % 0.1 , Absolute Granulocytes 13.7 H, Absolute Lymphocytes 1.5, Absolute Monocytes 0.4, Absolute Eosinophils 0, Absolute Basophils 0, PUBS MCHC 31.5 L
[2017-01-20 14:17] VITALS: BP 125/75
[2017-01-20 22:46] VITALS: BP 120/70
[2017-01-21 06:30] VITALS: BP 118/64
--- NOTE | 2017-01-21 07:28 | PN- Housestaff ---
Subjective Follow-up For: Acute bronchitis Complaints: no complaints Subjective: Patient seen and examined. Offers no complaints. Denies chest pain, shortness of breath, nausea, vomitng, fever, chills. Review of Systems Constitutional: Denies: chills, diaphoresis, fever, malaise, weakness, unexplained weight loss. Cardiovascular: Denies: chest pain, edema, orthopena, palpitations, peripheral edema, syncope. Respiratory: Denies: cough, hemoptysis, orthopnea, short of breath, sputum production, stridor, wheezing. Objective Last 24 Hrs of Vital Signs/I&O Vital Signs Date Time Temp Pulse Resp B/P B/P Pulse O2 O2 Flow FiO2 Mean Ox Delivery Rate 01/21 1344 95 Room Air 01/21 1013 72 108/64 01/21 0800 Room Air 01/21 0630 98.3 77 18 118/64 96 Room Air 01/20 2246 98.1 81 20 120/70 96 Room Air 01/20 2232 96 Room Air Intake & Output 01/21 1600 01/21 0800 01/21 0000 Intake Total 680 Output Total Balance 680 Intake, Oral 680 Physical Exam General Appearance: Alert, Oriented X3, Cooperative, No Acute Distress Cardiovascular: Regular Rate, Normal S1, Normal S2 Lungs: Clear to Auscultation, Normal Air Movement Current Medications: Current Medications Sig/Sonia Start time Last Medication Dose Route Stop Time Status Admin Acetaminophen 650 MG Q6P PRN 01/18 0900 AC 01/19 PO 0222 Acetaminophen/ 1 TAB Q6P PRN 01/18 0900 AC Hydrocodone Bitart PO Albuterol Sulfate 3 ML TID 01/18 1600 AC 01/21 INH 1342 Aripiprazole 10 MG DAILY 01/18 1013 AC 01/21 PO 1013 Atorvastatin Calcium 40 MG 1700 01/18 1700 AC 01/20 PO 1653 Azithromycin 250 MG DAILY 01/19 1000 AC 01/21 PO 1014 Benzonatate 100 MG TID 01/20 1000 AC 01/21 PO 1014 Budesonide/ 2 PUF BID 01/18 1013 AC 01/21 Formoterol Fumarate INH 1014 Clonazepam 0.5 MG TID 01/18 1014 AC 01/21 PO 01/25 1013 1013 Famotidine 20 MG BID 01/18 1015 AC 01/21 PO 1014 Heparin Sodium 5,000 UNIT Q8 01/18 1400 AC 01/21 (Porcine) SC 0602 Levothyroxine Sodium 0.088 MG DAILY AC 01/18 1014 AC 01/21 PO 0602 Mirabegron 50 MG DAILY 01/18 1015 AC 01/21 PO 1013 Mirtazapine 15 MG QPM 01/18 2200 AC 01/20 PO 2106 Montelukast Sodium 10 MG DAILY 01/18 1015 AC 01/21 PO 1014 Morphine Sulfate 4 MG Q4P PRN 01/18 0900 AC IV Prednisone 20 MG DAILY 01/21 1000 AC 01/21 PO 1014 Sertraline HCl 50 MG DAILY 01/18 1016 AC 01/21 PO 1014 Sucralfate 1,000 MG BID PRN 01/18 1030 AC PO Tiotropium [place] 1 PUF DAILY 01/18 1016 AC 01/21 INH 1014 Topiramate 100 MG BID 01/18 1017 AC 01/21 PO 1014 Verapamil HCl 240 MG DAILY 01/18 1017 AC 01/21 PO 1013 Last 24 Hrs of Lab/Diogenes Results Last 24 Hrs of Labs/Mics: Laboratory Tests 01/21/17 0724: CBC w Diff NO MAN DIFF REQ, RBC 4.17 L, MCV 81.0, MCH 25.6 L, RDW 18.5 H, MPV 9.3, Gran % 63.3, Lymphocytes % 27.2, Monocytes % 8.7, Eosinophils % 0.6, Basophils % 0.2, Absolute Granulocytes 10.6 H, Absolute Lymphocytes 4.5 H, Absolute Monocytes 1.5 H, Absolute Eosinophils 0.1, Absolute Basophils 0, PUBS MCHC 31.6 L Assessment/Plan Assessment: 61-year-old woman with a past medical history of morbid obesity, mild asthma, major anxiety, bipolar disorder with significant vocal cord dysfunction, migraines, IBS, GERD, hypothyroidism, urinary incontinence, hyperlipidemia. Current admission for Shortness of breath. Assessment and plan #Shortness of breath Most likely secondary to acute bronchitis. remains afebrile will be discharged on Azithromycin to complete a total of 5 days TRC nebs will be discharged on slow prednisone taper. F/U CXR showed low lung volumes with bibasilar opacities L>>R, c/w atelectasis. 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 She will have some dyspnea on exertion given paresis. #History of migraines Continue on Topamax 100 mg twice a day and verapamil 240 mg daily #History of bipolar disorder Continue on Zoloft and Abilify #History of anxiety Continue on Klonopin #Hyperlipidemia Continue on atorvastatin 40 mg daily #GERD Continue on famotidine 20 mg twice a day by mouth #Hypothyroidism Continue on Synthroid 0.088 mg daily by mouth DVT prophylaxis Heparin 5000units 3 times a day subcutaneous Diet Heart healthy CODE STATUS Full code Deposition: Medically stable for discharge to home today. Problem List: 1. Bronchitis 2. Acute exacerbation of chronic obstructive pulmonary disease (COPD) 3. Anxiety Pain Ratin Pain Location: na Pain Goal: Pain 4 or less Pain Plan: current regimen Tomorrow's Labs & Rationales: none required Consulting Request: Consulting Specialty: Pulmonary Disease
[2017-01-21 09:02] LABS: ABSOLUTE BASOPHIL COUNT 0 /CUMM (0.0-0.2); ABSOLUTE EOSINOPHIL COUNT 0.1 /CUMM (0.0-0.7); ABSOLUTE GRANULOCYTE CT 10.6 /CUMM (1.4-6.5); ABSOLUTE LYMPH COUNT 4.5 /CUMM (1.2-3.4); ABSOLUTE MONOCYTE COUNT 1.5 /CUMM (0.10-0.60); BASOPHIL % 0.2 % (0.0-2.0); EOSINOPHIL % 0.6 % (0-5); GRANULOCYTE % 63.3 % (42.2-75.2); HEMATOCRIT 33.7 % (37-47); MEAN CORPUSCULAR HGB 25.6 PG (27.0-31.0); MEAN CORPUSCULAR HGB CONC 31.6 G/DL (33.0-37.0); MEAN PLATELET VOLUME 9.3 FL (7.4-10.4); PLATELET COUNT 248 /CUMM (130-400); RBC DISTRIBUTION WIDTH 18.5 % (11.5-14.5); RED BLOOD CELL CT 4.17 /CUMM (4.20-5.40); WHITE BLOOD CELL COUNT 16.7 /CUMM (4.8-10.8)
[2017-01-21 10:13] VITALS: BP 108/64
--- NOTE | 2017-01-21 13:16 | RADIOLOGY REPORT ---
EXAMINATION: XR CHEST CLINICAL INFORMATION: Shortness of breath. History of left-sided diaphragmatic paresis. Evaluate for pneumonia. COMPARISON: Several prior chest x-rays, most recent of which is dated 01/19/2017. TECHNIQUE: 2 views of the chest were obtained. FINDINGS: The cardiomediastinal silhouette is within normal limits in size. No interval change in elevation of the left hemidiaphragm with associated left basilar opacities, most consistent with subsegmental atelectasis. Minimal linear subsegmental atelectasis in right lung base also stable. No focal evolving pneumonia. No pleural effusion. No effusion or pneumothorax is seen. Thoracic dextroscoliosis and multilevel mild degenerative changes again seen. IMPRESSION: 1. Unchanged appearance of the chest with chronic elevation of left hemidiaphragm and associated left basilar subsegmental atelectasis. No evolving pneumonia seen. 2. Mild right basilar subsegmental atelectasis.
--- NOTE | 2017-01-21 13:38 | PN- Att Addend ---
Attending Addendum Attending Brief Note Patient looking and feeling much better, not short of breath with vital signs are stable no fever and no new changes on physical. Which switched to by mouth medications, and if chest x-ray is stable then will start disposition plans to go home with home care chest x-ray and visit the office in a week. 24 TOTALS 01/21 0000 01/20 0000 Intake Total 720 1050 Output Total Balance 720 1050 Intake, Oral 720 1050 Current Medications Sig/Sonia Start time Last Medication Dose Route Stop Time Status Admin Acetaminophen 650 MG Q6P PRN 01/18 0900 AC 01/19 PO 0222 Acetaminophen/ 1 TAB Q6P PRN 01/18 0900 AC Hydrocodone Bitart PO Albuterol Sulfate 3 ML TID 01/18 1600 AC 01/20 INH 2230 Aripiprazole 10 MG DAILY 01/18 1013 AC 01/21 PO 1013 Atorvastatin Calcium 40 MG 1700 01/18 1700 AC 01/20 PO 1653 Azithromycin 250 MG DAILY 01/19 1000 AC 01/21 PO 1014 Benzonatate 100 MG TID 01/20 1000 AC 01/21 PO 1014 Budesonide/ 2 PUF BID 01/18 1013 AC 01/21 Formoterol Fumarate INH 1014 Clonazepam 0.5 MG TID 01/18 1014 AC 01/21 PO 01/25 1013 1013 Famotidine 20 MG BID 01/18 1015 AC 01/21 PO 1014 Heparin Sodium 5,000 UNIT Q8 01/18 1400 AC 01/21 (Porcine) SC 0602 Levothyroxine Sodium 0.088 MG DAILY AC 01/18 1014 AC 01/21 PO 0602 Mirabegron 50 MG DAILY 01/18 1015 AC 01/21 PO 1013 Mirtazapine 15 MG QPM 01/18 2200 AC 01/20 PO 2106 Montelukast Sodium 10 MG DAILY 01/18 1015 AC 01/21 PO 1014 Morphine Sulfate 4 MG Q4P PRN 01/18 0900 AC IV Prednisone 20 MG DAILY 01/21 1000 AC 01/21 PO 1014 Sertraline HCl 50 MG DAILY 01/18 1016 AC 01/21 PO 1014 Sucralfate 1,000 MG BID PRN 01/18 1030 AC PO Tiotropium [place] 1 PUF DAILY 01/18 1016 AC 01/21 INH 1014 Topiramate 100 MG BID 01/18 1017 AC 01/21 PO 1014 Verapamil HCl 240 MG DAILY 01/18 1017 AC 01/21 PO 1013 Laboratory Tests 01/21/17 0724: CBC w Diff NO MAN DIFF REQ, RBC 4.17 L, MCV 81.0, MCH 25.6 L, RDW 18.5 H, MPV 9.3, Gran % 63.3, Lymphocytes % 27.2, Monocytes % 8.7, Eosinophils % 0.6, Basophils % 0.2, Absolute Granulocytes 10.6 H, Absolute Lymphocytes 4.5 H, Absolute Monocytes 1.5 H, Absolute Eosinophils 0.1, Absolute Basophils 0, PUBS MCHC 31.6 L 01/20/17 0620: CBC w Diff NO MAN DIFF REQ, RBC 4.06 L, MCV 80.9 L, MCH 25.8 L, RDW 18.5 H, MPV 9.5, Gran % 67.2, Lymphocytes % 24.5, Monocytes % 7.8, Eosinophils % 0.5, Basophils % 0 L, Absolute Granulocytes 11.1 H, Absolute Lymphocytes 4.0 H, Absolute Monocytes 1.3 H, Absolute Eosinophils 0.1, Absolute Basophils 0, PUBS MCHC 31.9 L
--- NOTE | 2017-01-21 19:46 | PN- Pulmonary ---
Subjective HPI/Critical Care Issues: Doing ok sleeping Objective Current Medications: Current Medications Sig/Sonia Start time Last Medication Dose Route Stop Time Status Admin Acetaminophen 650 MG Q6P PRN 01/18 0900 DCD 01/19 PO 0222 Acetaminophen/ 1 TAB Q6P PRN 01/18 0900 DCD Hydrocodone Bitart PO Albuterol Sulfate 3 ML TID 01/18 1600 DCD 01/21 INH 1342 Aripiprazole 10 MG DAILY 01/18 1013 DCD 01/21 PO 1013 Atorvastatin Calcium 40 MG 1700 01/18 1700 DCD 01/20 PO 1653 Azithromycin 250 MG DAILY 01/19 1000 DCD 01/21 PO 1014 Benzonatate 100 MG TID 01/20 1000 DCD 01/21 PO 1014 Budesonide/ 2 PUF BID 01/18 1013 DCD 01/21 Formoterol Fumarate INH 1014 Clonazepam 0.5 MG TID 01/18 1014 DCD 01/21 PO 01/25 1013 1013 Famotidine 20 MG BID 01/18 1015 DCD 01/21 PO 1014 Heparin Sodium 5,000 UNIT Q8 01/18 1400 DCD 01/21 (Porcine) SC 0602 Levothyroxine Sodium 0.088 MG DAILY AC 01/18 1014 DCD 01/21 PO 0602 Mirabegron 50 MG DAILY 01/18 1015 DCD 01/21 PO 1013 Mirtazapine 15 MG QPM 01/18 2200 DCD 01/20 PO 2106 Montelukast Sodium 10 MG DAILY 01/18 1015 DCD 01/21 PO 1014 Morphine Sulfate 4 MG Q4P PRN 01/18 0900 DCD IV Prednisone 20 MG DAILY 01/21 1000 DCD 01/21 PO 1014 Sertraline HCl 50 MG DAILY 01/18 1016 DCD 01/21 PO 1014 Sucralfate 1,000 MG BID PRN 01/18 1030 DCD PO Tiotropium [place] 1 PUF DAILY 01/18 1016 DCD 01/21 INH 1014 Topiramate 100 MG BID 01/18 1017 DCD 01/21 PO 1014 Verapamil HCl 240 MG DAILY 01/18 1017 DCD 01/21 PO 1013 Vital Signs & I&O Last 24 Hrs of Vitals and I&O: Vital Signs Date Time Temp Pulse Resp B/P B/P Pulse O2 O2 Flow FiO2 Mean Ox Delivery Rate 01/21 1344 95 Room Air 01/21 1013 72 108/64 01/21 0800 Room Air 01/21 0630 98.3 77 18 118/64 96 Room Air 01/20 2246 98.1 81 20 120/70 96 Room Air 01/20 2232 96 Room Air Intake & Output 01/21 1600 01/21 0800 01/21 0000 Intake Total 680 Output Total Balance 680 Intake, Oral 680 Impression/Plan Impression/Plan Impression/Plan: General Appearance: Alert, No Acute Distress Skin: Grossly normal HEENT: PEERLA Neck: Supple, No JVD Cardiovascular: Regular Rate, Normal S1, Normal S2, No Murmurs Lungs: Mild expiratory wheeze Abdomen: Normal Bowel Sounds, Soft, No Tenderness Neurological: Normal Speech, Strength at 5/5 X4 Ext, Cranial Nerves 3-12 NL, Reflexes 2+ Extremities: No Clubbing, No Cyanosis, No Edema Vascular: Normal Pulses CXR IMPRESSION: Limited study due to low lung volumes and underpenetration of the soft tissues on this portable study. Opacification obscuring the left hemidiaphragm which could be due to atelectasis, consolidation, or effusion. Consider correlation with a nonportable PA and lateral study when able. FLuroscopy left sided diaphramatic paralysis IMRESSION 61-year-old female with a past medical history of morbid obesity, may mild asthma, major anxiety, bipolar disorder with significant vocal cord dysfunction, migraines, IBS, GERD, hypothyroidism, urinary incontinence, hyperlipidemia, Parkinson like features now with Bronchitis Mild asthma with mild chronic obstructive pulmonary disease. 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
== END 2017-01-21 15:00 | disposition home health service (06) | DRG 191 ==
LOC: ERH 22:40 → 2NA 01-18 07:35 → ERHI 01-18 07:35 → ENRESERV 01-18 09:33 → ENTRNSPT 01-18 10:21 → EDTRNSPTSTS 01-18 10:35 → 2NA 01-18 10:47 → CMPTRNSPT 01-18 11:09 → 2NA 01-19 10:17 → ENPENDDIS 01-21 13:51 → 2NA 01-21 15:00
PROVIDERS: Emergency Medicine; Internal Medicine Infectious Disease; ADMIT Internal Medicine
DX: J44.0 Chronic obstructive pulmonary disease with (acute) lower respiratory infection (principal); Z68.41 Body mass index [BMI] 40.0-44.9, adult; G20 Parkinson's disease; J20.9 Acute bronchitis, unspecified; J44.1 Chronic obstructive pulmonary disease with (acute) exacerbation; E66.01 Morbid (severe) obesity due to excess calories; J98.6 Disorders of diaphragm; K58.9 Irritable bowel syndrome, unspecified; K21.9 Gastro-esophageal reflux disease without esophagitis; E78.5 Hyperlipidemia, unspecified; F41.9 Anxiety disorder, unspecified; F32.9 Major depressive disorder, single episode, unspecified; E03.9 Hypothyroidism, unspecified; Z87.891 Personal history of nicotine dependence; R32 Unspecified urinary incontinence; Z91.19 Patient's noncompliance with other medical treatment and regimen; G43.909 Migraine, unspecified, not intractable, without status migrainosus
CPT/HCPCS: 2NAP; 36415; 82436; J0401; J0456; J1644; J2920; J3490; J7040

== ENCOUNTER 2017-07-12 19:49 | Inpatient (IN) | payer OTHER ==
[~2017-07-12] VITALS: Ht 157.5 cm; Wt 103.0 kg
[~2017-07-12 19:49] MED LIST changes: +CARBIDOPA-LEVO1 EAC7 PO; +DELTASONE20 MG PO; +FLUTICASONE PRO16 GM NASB; +LASIX20 M1 PO; +LASIX40 M1 PO; +MOXIFLOXACIN H400 M2 PO; +OMEPRAZOLE20 M2 PO; +PREDNISONE20 M1 PO; +PREDNISONE5 M1 PO; +PREDNISONE50 M1 PO; +SULFAMETHOXAZO1 EAC1 PO; +TOPAMAX100 M1 PO; -TOPAMAX50 M1 PO; +ZOFRAN4 M2 PO
--- NOTE | 2017-07-12 19:52 | ED DYSPNEA/ASTHMA COMPLAINT ---
History of Present Illness General Chief Complaint: Dyspnea (COPD, CHF, Other) Stated Complaint: BIBA SOB Source: patient, old records Exam Limitations: no limitations Vital Signs & Intake/Output Vital Signs & Intake/Output Vital Signs Date Time Temp Pulse Resp B/P B/P Pulse O2 O2 Flow FiO2 Mean Ox Delivery Rate 07/12 2248 Room Air 07/12 2248 74 18 112/55 96 Room Air 07/12 1951 98.3 88 22 136/64 98 Room Air Allergies Coded Allergies: peanut (Severe, TONGUE SWELLING, DIFFICULTY BREATHING 02/18/17) pear (Severe, ANAPHYLAXIS 02/18/17) pepper (Severe, PEPPERS - TONGUE SWELLS 02/18/17) walnut (Severe, DIFFICULTY BREATHING 02/18/17) cefazolin (UNKNOWN 02/18/17) cefuroxime (UNKNOWN 02/18/17) ciprofloxacin (ITCHING WITH IV CIPRO ONLY-PT ABLE TO TAKE ORAL 02/18/17) clavulanic acid (From Augmentin) (HIVES, RASH 02/18/17) erythromycin base (From Erythrocin) (RASH 02/18/17) neomycin (UNKNOWN 02/18/17) penicillin V (UNKNOWN 02/18/17) polymyxin B (HIVES 02/18/17) quetiapine (From Seroquel) (BRIGHT RED & ITCHY 02/18/17) wheat (WHEAT SPROUTS - ITCHY 02/18/17) chocolate flavor (CHOCOLATE - MIGRAINS 02/18/17) lactose (DIARRHEA 02/18/17) Reconcile Medications Albuterol Sulfate (Ventolin Hfa) 90 MCG HFA.AER.AD 2 PUF INH 4XDAILY ASTHMA ( Reported) Aripiprazole (Abilify) 10 MG TABLET 1 TAB PO DAILY MENTAL HEALTH (Reported) Benzonatate (Tessalon [place]) 100 MG CAPSULE 1 CAP PO TID PRN COUGH Budesonide/Formoterol Fumarate (Symbicort 160-4.5 Mcg Inhaler) 160 MCG-4.5 MCG/ ACTUATION HFA.AER.AD 2 PUF INH BID COPD (Reported) Carbidopa/Levodopa (Carbidopa-Levodopa 25-100 Tab) 25 MG-100 MG TABLET 1 TAB PO TID Parkinsons (Reported) Clonazepam 0.5 MG TABLET 1 TAB PO TID ANXIETY (Reported) Fluticasone Propionate 50 MCG/ACTUATION SPRAY.SUSP 2 SPRAY NASB DAILY ALLERGIES (Reported) Furosemide (Lasix) 40 MG TABLET 1 TAB PO DAILY SWELLING Levalbuterol HCl (Xopenex) 0.63 MG/3 ML VIAL.NEB 1 Vial INH/DOMINGA TID PRN SHORTNESS OF BREATH Levothyroxine Sodium 88 MCG TABLET 1 TAB PO DAILY AC THYROID (Reported) Mirabegron (Myrbetriq) 50 MG TAB.ER.24H 1 TAB PO DAILY URINARY INCONTINENCE ( Reported) Mirtazapine 15 MG TABLET 1 TAB PO QPM SLEEP (Reported) Montelukast Sodium (Singulair) 10 MG TABLET 1 TAB PO DAILY ASTHMA (Reported) Moxifloxacin HCl 400 MG TABLET 1 TAB PO DAILY LUNG INFECTION . Omeprazole 20 MG CAPSULE.DR 1 TAB PO DAILY AC STOMACH . Ondansetron HCl (Zofran) 4 MG TABLET 1 TAB PO Q6-8P PRN NAUSEA Prednisone 5 MG TABLET 0 PO SEE ADMIN CRITERIA COPD . Prednisone (Deltasone) 20 MG TABLET 2 TAB PO DAILY WHEEZING BEGIN TOMORROW Prednisone 50 MG TABLET 1 TAB PO DAILY ASTHMATIC BRONCHITIS Promethazine HCl/Codeine (Promethazine-Codeine Syrup) 6.25 MG-10 MG/5 ML SYRUP 5 ML PO Q4-6 PRN COUGH ONE HUNDRED TWENTY CC'S, [id number] Ranitidine HCl (Zantac) 300 MG TABLET 1 TAB PO BID GI (Reported) Rosuvastatin Calcium (Crestor) 10 MG TABLET 1 TAB PO DAILY CHOL (Reported) Sertraline HCl 50 MG TABLET 1 TAB PO DAILY MENTAL HEALTH (Reported) Sucralfate (Carafate) 1 GRAM TABLET 1 TAB PO BID PRN GI (Reported) Tiotropium Br/Olodaterol HCl (Stiolto Respimat Inhal [place]) 2.5 MCG-2.5 MCG/ ACTUATION MIST.INHAL 2 PUFF INH QAM ASTHMA (Reported) Topiramate (Topamax) 100 MG TABLET 1 TAB PO BID MIGRAINES (Reported) Verapamil HCl (Verapamil ER) 240 MG TABLET.ER 1 TAB PO DAILY migraines ( Reported) Triage Nurses Notes Reviewed? yes Onset: Gradual Duration: week(s): Timing: recent history Severity: moderate Activities at Onset: none Prior Episodes/Possible Cause: frequent episodes Modifying Factors: Improves With: rest. Associated Symptoms: cough, wheezing, weakness HPI: 62 yo woman h/o copd, seen 2 days ago, now returns with dyspnea, shortness of breath. She shares that she completed her steroid course earlier today. She is also on TIW azithromycin. "I stayed in bed all day.... I can't even walk to the bathroom, I get so short of breath." She notes that her older brother smokes, "but not in the house." She states, "I can't seem to catch my breath... and now my sputum has gotten worse... it's all yellow and green and has gotten thicker." She was breathless and wheezing EMS. She received solumedrol 125mg iv and a duo neb. She denies chest pain, dizziness, syncopal type symptoms. Past History Travel History Traveled to [place] past 21 day No Medical History Any Pertinent Medical History? see below for history Neurological: migraine, Parkinson's disease EENT: glaucoma Cardiovascular: hyperlipidemia Respiratory: asthma, COPD, emphysema, pneumonia Gastrointestinal: diverticulitis, GERD, hiatal hernia, irritable bowel syndrome Hepatic: NONE Renal: NONE Musculoskeletal: falls, right rotator cuff tendonitis ARTHRITIS Psychiatric: anxiety, bipolar disease, depression Endocrine: hypothyroidism Blood Disorders: NONE Cancer(s): NONE CLAIMS ACCOUNT MANAGER/Reproductive: NONE History of MRSA: No History of VRE: No History of CDIFF: No Tetanus Vaccine: 12/22/13 Surgical History Surgical History: appendectomy, cholecystectomy, hysterectomy, right shoulder rotator cuff repair hiatal hernia surgery right ankle broken Psychosocial History Who do you live with Family Services at Home None What is your primary language Polish Family History Family History, If Any: MOTHER FH: myocardial infarction FATHER FH: CAD (coronary artery disease) FH: diabetes mellitus FH: HTN (hypertension) FH: stroke Hx Contributory? No Review of Systems Review of Systems Constitutional: Reports: no symptoms. EENTM: Reports: no symptoms. Respiratory: Reports: no symptoms. Cardiovascular: Reports: no symptoms. GI: Reports: no symptoms. Genitourinary: Reports: no symptoms. Musculoskeletal: Reports: no symptoms. Skin: Reports: no symptoms. Neurological/Psychological: Reports: no symptoms. Hematologic/Endocrine: Reports: no symptoms. Immunologic/Allergic: Reports: no symptoms. All Other Systems: Reviewed and Negative Physical Exam Physical Exam General Appearance: mild distress Head: atraumatic, normal appearance Eyes: Bilateral: normal appearance. Ears, Nose, Throat: normal pharynx, normal ENT inspection Neck: normal inspection, supple, full range of motion Respiratory: wheezing, respiratory distress, prolonged expiratory phase Cardiovascular: regular rate/rhythm Gastrointestinal: normal bowel sounds, soft, non-tender Extremities: normal inspection Neurologic/Psych: no motor/sensory deficits, awake, alert, oriented x 3 Skin: intact, normal color, warm/dry Core Measures ACS in differential dx? No CVA/TIA Diagnosis No Sepsis Present: No Sepsis Focused Exam Completed? No Progress Differential Diagnosis: asthma, bronchitis, costochondritis, CHF, COPD Plan of Care: Orders Procedure Date/time Status Nothing by Mouth 07/13 B Active Patient Data 07/12 2319 Active Intake & Output 07/12 2250 Active Saline Lock 07/12 2243 Active Misc Message 07/12 2243 Active ED Holding Orders 07/12 2243 Active Admit to inpatient 07/12 2243 Active Vital Signs 07/12 2243 Active Code Status 07/12 2243 Active BLOOD CULTURE 07/12 2014 Active BLOOD CULTURE 07/12 2012 Active D-DIMER 07/12 1999 Complete TROPONIN LEVEL 07/12 1951 Complete LIPASE 07/12 1951 Complete HEPATIC FUNCTION PANEL 07/12 1951 Complete CBC WITHOUT DIFFERENTIAL 07/12 1951 Complete BASIC METABOLIC PANEL 07/12 1951 Complete AMYLASE 07/12 1951 Complete EKG 07/12 1951 Active Current Medications Sig/Sonia Start time Last Medication Dose Stop Time Status Admin Magnesium Sulfate 1 GM ONCE ONE 07/12 1999 AC 07/12 (Mag Sulfate in D5) 07/12 2359 2042 Dextrose/Water 100 ML (D5W) Laboratory Tests 07/12/172014: Anion Gap 14, Estimated GFR > 60, BUN/Creatinine Ratio 30.0 H, Glucose 122 H, Calcium 9.1, Total Bilirubin 0.2, Direct Bilirubin 0.2, AST 17, ALT 28, Alkaline Phosphatase 81, Troponin I < 0.01, Total Protein 6.4, Albumin 4.0, Amylase 45, Lipase 163, D-Dimer High Sensitivty < 200, CBC w Diff NO MAN DIFF REQ, RBC 4.27, MCV 80.7 L, MCH 25.6 L, RDW 19.7 H, MPV 8.8, Gran % 83.4 H, Lymphocytes % 11.1 L, Monocytes % 5.2, Eosinophils % 0, Basophils % 0.3, Absolute Granulocytes 11.3 H, Absolute Lymphocytes 1.5, Absolute Monocytes 0.7 H, Absolute Eosinophils 0, Absolute Basophils 0, PUBS MCHC 31.8 L Microbiology 07/12 2134 BLOOD: Blood Culture - RECD 07/12 2014 BLOOD: Blood Culture - RECD Diagnostic Imaging: Viewed by Me: Radiology Read. Discussed w/RAD: Radiology Read. CXR Impression: bi basilar atelectasis PATIENT: WILLOW VILLA PRESENT AGE: 62 PATIENT ACCOUNT NO: [id number] : 53 LOCATION: [facility] ORDERING PHYSICIAN: Boo Epperson MD SERVICE DATE: 07/12/17 EXAM TYPE: RAD - XRY-PORTABLE CHEST XRAY EXAMINATION: XR PORTABLE CHEST CLINICAL INFORMATION: Dyspnea COMPARISON: 07/10/2017 TECHNIQUE: Portable frontal view of the chest was obtained. FINDINGS: Lung volumes are low. Linear opacities at the lung bases, left greater than right, most compatible with atelectasis. Small foci of consolidation are less likely. No effusion or pneumothorax. Cardiac and mediastinal contours are within normal limits given the lung volumes and technique. No acute osseous findings. IMPRESSION: Low lung volumes with bibasilar atelectasis. DICTATED BY: Aj Hadley MD DATE/TIME DICTATED:07/12/172114 SENIOR DIGITAL DESIGNER:SIOMARA DATE/TIME TRANSCRIBED:07/12/172114 CONFIDENTIAL, DO NOT COPY WITHOUT APPROPRIATE AUTHORIZATION. <Electronically signed in Other Vendor System> SIGNED BY: Aj Hadley MD 07/12/172120 Initial ED EKG: left axis, nsr, no acute changes Departure Departure Disposition: STILL A PATIENT Condition: Stable Clinical Impression Primary Impression: COPD exacerbation Referrals: Patient Has No Primary Care Dr (PCP/Family) Departure Forms: Customer Survey General Discharge Information Admission Note Spoke With: Kirsten Clifton MD Documentation of Exam: Documentation of any treatments & extenuating circumstances including Concerns Regarding Discharge (functional status, medication knowledge or non-compliance, living conditions, etc.) that warrant an admission rather than observation: pt with recurrent copd type symptoms, failing out patient management with frequent ED visits, completed steroids today, on chronic antibiotics. Upon ambulation from bathroom, pt became breathless, wheezing, 02 sat dropped to 91-93%. pt merits iv abx, iv steroids, nebs. Would consider Pulm consult (she sees dr. pastor) in the AM. I have strongly suggested that her brother with whom she lives quits smoking. She received mag sulfate 1gm iv in the ED w/ a neb which improved her symptoms. Critical Care Note Critical Care Note Critical Care Time: non-applicable
[2017-07-12 20:28] LABS: ABSOLUTE BASOPHIL COUNT 0 /CUMM (0.0-0.2); ABSOLUTE EOSINOPHIL COUNT 0 /CUMM (0.0-0.7); ABSOLUTE GRANULOCYTE CT 11.3 /CUMM (1.4-6.5); ABSOLUTE LYMPH COUNT 1.5 /CUMM (1.2-3.4); ABSOLUTE MONOCYTE COUNT 0.7 /CUMM (0.10-0.60); BASOPHIL % 0.3 % (0.0-2.0); EOSINOPHIL % 0 % (0-5); HEMATOCRIT 34.4 % (37-47); MEAN CORPUSCULAR HGB 25.6 PG (27.0-31.0); MEAN CORPUSCULAR HGB CONC 31.8 G/DL (33.0-37.0); MEAN CORPUSCULAR VOLUME 80.7 FL (81.0-99.0); MEAN PLATELET VOLUME 8.8 FL (7.4-10.4); PLATELET COUNT 316 /CUMM (130-400); RBC DISTRIBUTION WIDTH 19.7 % (11.5-14.5); RED BLOOD CELL CT 4.27 /CUMM (4.20-5.40); WHITE BLOOD CELL COUNT 13.5 /CUMM (4.8-10.8)
[2017-07-12 20:37] LABS: GRANULOCYTE % 83.4 % (42.2-75.2)
--- NOTE | 2017-07-12 21:21 | RADIOLOGY REPORT ---
EXAMINATION: XR PORTABLE CHEST CLINICAL INFORMATION: Dyspnea COMPARISON: 07/10/2017 TECHNIQUE: Portable frontal view of the chest was obtained. FINDINGS: Lung volumes are low. Linear opacities at the lung bases, left greater than right, most compatible with atelectasis. Small foci of consolidation are less likely. No effusion or pneumothorax. Cardiac and mediastinal contours are within normal limits given the lung volumes and technique. No acute osseous findings. IMPRESSION: Low lung volumes with bibasilar atelectasis.
--- NOTE | 2017-07-13 01:00 | History & Physical ---
See Addendum Yen BARRETO,[facility] 07/13/17 0100: General Information and HPI MD Statement: I have seen and personally examined WILLOW ALEXANDRE and documented this H&P. The patient is a 62 year old F who presented with a patient stated chief complaint of [shortness of breath and productive cough]. Source of Information: patient Exam Limitations: no limitations History of Present Illness: Ms. Alexandre is a 62-year-old lady with past medical history significant for migraine headaches, Parkinson's disease, glaucoma, hyperlipidemia, asthma/COPD, pneumonia, diverticulitis, GERD, IBS, hiatal hernia, rotator cuff tendinitis, arthritis, anxiety, bipolar disorder, depression and hypothyroidism , was seen in the ER 2 days ago returns with dyspnea and productive cough that has been going on for the past 2 months. Patient states that she was in her usual state of health until early April when she went on a vacation to [place], she got with endocrine and got sick with dyspnea, congestion, cough with production of dark green colored sputum, fever and chills. She also complains of chest discomfort, states it feels like somebody is sitting on her chest, and is worse with movement and with coughing. She has multiple recent ER visits for similar complaints, and was also admitted for 4 days for possible pneumonia beginning of May. States her symptoms would somewhat get better but then returned again. She has shortness of breath with exertion at baseline. She follows up with Dr. Peña for her COPD/asthma and has been started on azithromycin 250 mg(Thursday), and prednisone for the past 1 month. Allergies/Medications Allergies: Coded Allergies: peanut (Severe, TONGUE SWELLING, DIFFICULTY BREATHING 02/18/17) pear (Severe, ANAPHYLAXIS 02/18/17) pepper (Severe, PEPPERS - TONGUE SWELLS 02/18/17) walnut (Severe, DIFFICULTY BREATHING 02/18/17) cefazolin (UNKNOWN 02/18/17) cefuroxime (UNKNOWN 02/18/17) ciprofloxacin (ITCHING WITH IV CIPRO ONLY-PT ABLE TO TAKE ORAL 02/18/17) clavulanic acid (From Augmentin) (HIVES, RASH 02/18/17) erythromycin base (From Erythrocin) (RASH 02/18/17) neomycin (UNKNOWN 02/18/17) penicillin V (UNKNOWN 02/18/17) polymyxin B (HIVES 02/18/17) quetiapine (From Seroquel) (BRIGHT RED & ITCHY 02/18/17) wheat (WHEAT SPROUTS - ITCHY 02/18/17) chocolate flavor (CHOCOLATE - MIGRAINS 02/18/17) lactose (DIARRHEA 02/18/17) Home Med list Albuterol Sulfate (Ventolin Hfa) 90 MCG HFA.AER.AD 2 PUF INH 4XDAILY ASTHMA ( Reported) Aripiprazole (Abilify) 10 MG TABLET 1 TAB PO DAILY MENTAL HEALTH (Reported) Benzonatate (Tessalon Perle) 100 MG CAPSULE 1 CAP PO TID PRN COUGH Budesonide/Formoterol Fumarate (Symbicort 160-4.5 Mcg Inhaler) 160 MCG-4.5 MCG/ ACTUATION HFA.AER.AD 2 PUF INH BID COPD (Reported) Carbidopa/Levodopa (Carbidopa-Levodopa 25-100 Tab) 25 MG-100 MG TABLET 1 TAB PO TID Parkinsons (Reported) Clonazepam 0.5 MG TABLET 1 TAB PO TID ANXIETY (Reported) Fluticasone Propionate 50 MCG/ACTUATION SPRAY.SUSP 2 SPRAY NASB DAILY ALLERGIES (Reported) Furosemide (Lasix) 40 MG TABLET 1 TAB PO DAILY SWELLING Levalbuterol HCl (Xopenex) 0.63 MG/3 ML VIAL.NEB 1 Vial INH/DOMINGA TID PRN SHORTNESS OF BREATH Levothyroxine Sodium 88 MCG TABLET 1 TAB PO DAILY AC THYROID (Reported) Mirabegron (Myrbetriq) 50 MG TAB.ER.24H 1 TAB PO DAILY URINARY INCONTINENCE ( Reported) Mirtazapine 15 MG TABLET 1 TAB PO QPM SLEEP (Reported) Montelukast Sodium (Singulair) 10 MG TABLET 1 TAB PO DAILY ASTHMA (Reported) Moxifloxacin HCl 400 MG TABLET 1 TAB PO DAILY LUNG INFECTION . Omeprazole 20 MG CAPSULE.DR 1 TAB PO DAILY AC STOMACH . Ondansetron HCl (Zofran) 4 MG TABLET 1 TAB PO Q6-8P PRN NAUSEA Prednisone 5 MG TABLET 0 PO SEE ADMIN CRITERIA COPD . Prednisone (Deltasone) 20 MG TABLET 2 TAB PO DAILY WHEEZING BEGIN TOMORROW Prednisone 50 MG TABLET 1 TAB PO DAILY ASTHMATIC BRONCHITIS Promethazine HCl/Codeine (Promethazine-Codeine Syrup) 6.25 MG-10 MG/5 ML SYRUP 5 ML PO Q4-6 PRN COUGH ONE HUNDRED TWENTY CC'S, [id number] Ranitidine HCl (Zantac) 300 MG TABLET 1 TAB PO BID GI (Reported) Rosuvastatin Calcium (Crestor) 10 MG TABLET 1 TAB PO DAILY CHOL (Reported) Sertraline HCl 50 MG TABLET 1 TAB PO DAILY MENTAL HEALTH (Reported) Sucralfate (Carafate) 1 GRAM TABLET 1 TAB PO BID PRN GI (Reported) Tiotropium Br/Olodaterol HCl (Stiolto Respimat Inhal [place]) 2.5 MCG-2.5 MCG/ ACTUATION MIST.INHAL 2 PUFF INH QAM ASTHMA (Reported) Topiramate (Topamax) 100 MG TABLET 1 TAB PO BID MIGRAINES (Reported) Verapamil HCl (Verapamil ER) 240 MG TABLET.ER 1 TAB PO DAILY migraines ( Reported) Past History Travel History Traveled to [place] past 21 day No Medical History Neurological: migraine, Parkinson's disease EENT: glaucoma Cardiovascular: hyperlipidemia Respiratory: asthma, COPD, emphysema, pneumonia Gastrointestinal: diverticulitis, GERD, hiatal hernia, irritable bowel syndrome Hepatic: NONE Renal: NONE Musculoskeletal: falls, right rotator cuff tendonitis ARTHRITIS Psychiatric: anxiety, bipolar disease, depression Endocrine: hypothyroidism Blood Disorders: NONE Cancer(s): NONE FURNITURE INSTALLER/Reproductive: NONE History of MRSA: No History of VRE: No History of CDIFF: No Tetanus Vaccine: 12/22/13 Surgical History Surgical History: appendectomy, cholecystectomy, hysterectomy, right shoulder rotator cuff repair hiatal hernia surgery right ankle broken Past Family/Social History Family History Relations & Conditions if any MOTHER FH: myocardial infarction FATHER FH: CAD (coronary artery disease) FH: diabetes mellitus FH: HTN (hypertension) FH: stroke Psychosocial History Who Do You Live With? sibling Services at Home: None Smoking Status: Former Smoker ETOH Use: denies use Illicit Drug Use: denies illicit drug use Functional Ability ADLs Independent: dressing, eating, toileting, bathing. Ambulation: independent IADLs Needs Assist: housework. Review of Systems Review of Systems Constitutional: Reports: no symptoms. EENTM: Reports: no symptoms. Cardiovascular: Reports: no symptoms. Respiratory: Reports: cough, short of breath, sputum production. GI: Reports: no symptoms. Genitourinary: Reports: no symptoms. Musculoskeletal: Reports: no symptoms. Skin: Reports: no symptoms. Neurological/Psychological: Reports: no symptoms. Hematologic/Endocrine: Reports: no symptoms. Immunologic/Allergic: Reports: no symptoms. All Other Systems: Reviewed and Negative Exam & Diagnostic Data Last 24 Hrs of Vital Signs/I&O Vital Signs Date Time Temp Pulse Resp B/P B/P Pulse O2 O2 Flow FiO2 Mean Ox Delivery Rate 07/13 0200 97.2 72 16 118/62 98 Room Air 07/12 2248 Room Air 07/12 2248 74 18 112/55 96 Room Air 07/12 195 98.3 88 22 136/64 98 Room Air Intake & Output 07/13 0800 07/13 0000 07/12 1600 Intake Total 0 Output Total Balance 0 Intake, Oral 0 Patient 227 lb Weight Weight Reported by Patient Measurement Method Physical Exam General Appearance Alert, Oriented X3, Cooperative Skin No Rashes, No Breakdown HEENT Atraumatic, PERRLA, EOMI, dry mucous membranes, dilated pupils Neck Supple, No JVD, No thryomegaly Lymphatic Cervical nl Cardiovascular Regular Rate, Normal S1, Normal S2 Lungs decreased air movement in bilateral lung ray with audible wheezing Abdomen Normal Bowel Sounds, Soft, No Tenderness Extremities No Clubbing, No Cyanosis, No Edema, Normal Pulses Last 24 Hrs of Labs/Diogenes: Laboratory Tests 07/12/17 2015: Anion Gap 14, Estimated GFR > 60, BUN/Creatinine Ratio 30.0 H, Glucose 122 H, Calcium 9.1, Total Bilirubin 0.2, Direct Bilirubin 0.2, AST 17, ALT 28, Alkaline Phosphatase 81, Troponin I < 0.01, Cen-N-Kjjafkejwxj Pept 76.4, Total Protein 6.4, Albumin 4.0, Amylase 45, Lipase 163, D-Dimer High Sensitivty < 200, CBC w Diff NO MAN DIFF REQ, RBC 4.27, MCV 80.7 L, MCH 25.6 L, RDW 19.7 H, MPV 8.8, Gran % 83.4 H, Lymphocytes % 11.1 L, Monocytes % 5.2, Eosinophils % 0, Basophils % 0.3, Absolute Granulocytes 11.3 H, Absolute Lymphocytes 1.5, Absolute Monocytes 0.7 H, Absolute Eosinophils 0, Absolute Basophils 0, PUBS MCHC 31.8 L Microbiology 07/13 0129 LOWER RESP: Respiratory Culture - ORD 07/13 012 LOWER RESP: Gram Stain - ORD 07/12 2134 BLOOD: Blood Culture - RECD 07/12 2014 BLOOD: Blood Culture - RECD Diagnostic Data EKG Results Normal sinus rhythm Heart rate 84 CXR Results IMPRESSION: Low lung volumes with bibasilar atelectasis. Assessment/Plan Assessment: Ms. Alexandre is a 62-year-old lady with past medical history significant for migraine headaches, Parkinson's disease, glaucoma, hyperlipidemia, asthma/COPD, pneumonia, diverticulitis, GERD, IBS, hiatal hernia, rotator cuff tendinitis, arthritis, anxiety, bipolar disorder, depression and hypothyroidism , was seen in the ER 2 days ago returns with dyspnea and productive cough that has been going on for the past 2 months. A/P; 1. Dyspnea with productive cough; likely COPD exacerbation - Chest x-ray negative for any consolidation/pneumonia. - We will start the patient on IV Solu-Medrol every 8 - Continue azithromycin - Follow up sputum cultures - Follow-up blood cultures - In[facility] Dr. Peña in [facility] neb - Continue Symbicort inhaler - CT chest to rule out any worsening COPD. 2. Hypernatremia; - Tachycardia secondary to dehydration - We'll continue gentle IV hydration and repeat labs in a.m. 3. Chronic Medical conditions; - Continue home medications including CPAP for sleep apnea. DVT prophylaxis; subcutaneous Lovenox Patient is full code As Ranked By This Provider Problem List: 1. Cough 2. Dyspnea 3. COPD (chronic obstructive pulmonary disease) Core Measures/Misc (03/22) Acute Coronary Syndrome ACS Diagnosis: No Congestive Heart Failure Congestive Heart Failure Diagnosis No Cerebrovascular Accident CVA/TIA Diagnosis: No VTE (View Protocol) VTE Risk Factors Age>40 No Mechanical VTE Prophylaxis d/t N/A MechProphylax Ordered No VTE Pharm Prophylaxis d/t NA PharmProphylax ordered Sepsis (View protocol) Sepsis Present: No Izzy Lafleur 07/13/17 0209: Resident Review Statement Resident Statement: examined this patient, discussed with physician/internist Other Findings: Patient is a 62-year-old morbidly obese woman with a past medical history significant for asthma, COPD, history of Chronic left diapharam paralysis , history of Large paraesophageal hernia with recurrent asp from gerd pt s/p rene fundoplication many yrs ago, vocal cord dysfunction-likely psychogenic, migraines, IBS, GERD, hypothyroidism, urinary incontinence, hyperlipidemia, Parkinson , history of major anxiety depression, bipolar disease, presented to the ED for further evaluation of persistent productive cough for the last couple of months . Her symptoms initially started after her trip to [place] in April, and she was admitted to [facility] in May due to COPD exacerbation and suspected community acquired pneumonia. Since then patient has been seen multiple times in the ER with similar complaints, being treated with antibiotics and steroids. For the last 1 month she has been taking by mouth azithromycin on Wednesdays and Fridays with 5 mg of prednisone prescribed by Dr. Peña, but still she continues to have persistent productive cough with chest congestion. Pt used to follw up at COPD clinic, but stopped going for a while now. Recently she was again seen in the ER last Thursday and was prescribed taper prednisone 40, 30, 20 and 10(finished the course), but she continued to get worse, called EMS for help. On her way to the hospital patient received 1 dose of IV Solu-Medrol 125 mg with Duonebs, that resulted in improvement in her symptoms. At the time of evaluation, patient was resting comfortably in a reclining position. Reports productive cough with greenish phlegm with some shortness of breath and wheezing. Also had a low-grade temperature of 99 without any chills at home. No nausea vomiting abdominal discomfort. Has baseline urinary incontinence. Vitals on admission to be 98.2, pulse 88, respiratory rate 22, blood pressure 136/61 on room air. On examination General Appearance:alert oriented 3, not in acute distress Skin: Grossly normal HEENT: PEERLA Neck: Supple, No JVD Cardiovascular: Regular Rate, Normal S1, Normal S2, systolic murmur in the second right intercostal space. Lungs: Decreased breath sounds bilaterally with expiratory wheeze, Abdomen: Normal Bowel Sounds, no abdominal tenderness Neurological: Normal Speech, Strength at 5/5 X4 Ext, Cranial Nerves 3-12 NL, Reflexes 2+, rectal tone intact no signs of saddle anesthesia Extremities: Bilateral mild lower extremities edema Pertinent labs on admission Leukocytosis 13.5 with granulocytosis, H&H low at 0.9/34.4) Baseline MCV 80.7, hypernatremia 149, elevated BUN 24. CXR: Low lung volumes with bibasilar atelectasis. Problem list Persistent productive cough with shortness of breath and wheezing(Worsening chronic obstructive lung disease /exacerbation. Hypernatremia with elevated BUN(likely dehydration) Bilateral lower extremity edema history of Chronic left diapharam paralysis history of Large paraesophageal hernia with recurrent asp from gerd pt s/p rene fundoplication history of vocal cord dysfunction-likely psychogenic History of migraines. History of IBS and GERD. hx of hypothyroidism, urinary incontinence, hyperlipidemia, Parkinson history of major anxiety depression, bipolar disease Plan Persistent productive cough with shortness of breath and wheezing(Worsening chronic obstructive lung disease /exacerbation. * Admit the patient [facility] floor. * continue IV Solu-Medrol 40 mg every 8. * Continue by mouth azithromycin 250 mg daily. * Continue home inhalers including Symbicort. * [facility] nebs. * Obtain pulmonology consult Dr. Peña in the morning. * Will obtain CT scan of the chest without contrast to rule out worsening chronic obstructive lung disease/mass causing obstructive symptoms. Hypernatremia with elevated BUN(likely dehydration) * Continue gentle hydration IV normal saline 1 bag ,follow-up BEP in the morning Bilateral lower extremity edema * Check proBNP. history of Chronic left diapharam paralysis * Follow-up CT scan chest. History of hypertension and hyperlipidemia * Continue verapamil and statins. History of migraines. * Continue Topamax History of IBS and GERD and Large paraesophageal hernia with recurrent asp from gerd pt s/p rene fundoplication * Continue ranitidine and sucralfate hx of hypothyroidism, urinary incontinence, hyperlipidemia, Parkinson * Continue all home medications. history of major anxiety depression, bipolar disease * Continue all home medications. Morbid obesity with JESUS on cpap (non compliant) * Continue CPAP. DVT prophylaxis with subcutaneous Lovenox Lzoi-ya-ptleumaf pain control with IV Tylenol Patient is full code Morbid obesity with JESUS on cpap not too compliant REC
[2017-07-13 05:49] LABS: ABSOLUTE BASOPHIL COUNT 0 /CUMM (0.0-0.2); ABSOLUTE EOSINOPHIL COUNT 0 /CUMM (0.0-0.7); ABSOLUTE GRANULOCYTE CT 11.9 /CUMM (1.4-6.5); ABSOLUTE LYMPH COUNT 0.6 /CUMM (1.2-3.4); ABSOLUTE MONOCYTE COUNT 0 /CUMM (0.10-0.60); BASOPHIL % 0 % (0.0-2.0); EOSINOPHIL % 0 % (0-5); HEMATOCRIT 33.8 % (37-47); MEAN CORPUSCULAR HGB 25.7 PG (27.0-31.0); MEAN CORPUSCULAR HGB CONC 31.9 G/DL (33.0-37.0); MEAN CORPUSCULAR VOLUME 80.7 FL (81.0-99.0); MEAN PLATELET VOLUME 8.6 FL (7.4-10.4); RBC DISTRIBUTION WIDTH 19.3 % (11.5-14.5); RED BLOOD CELL CT 4.19 /CUMM (4.20-5.40); WHITE BLOOD CELL COUNT 12.5 /CUMM (4.8-10.8)
[2017-07-13 06:09] LABS: PLATELET COUNT 313 /CUMM (130-400)
--- NOTE | 2017-07-13 09:04 | PN- Housestaff ---
Marcelino BARRETO,[facility] 07/13/17 0904: Subjective Follow-up For: COPD excerbation Subjective: Agent was seen and examined this morning, she endorsed cough with yellow sputum, denied blood, shortness of breath improved. Patient denied any chest pain or palpitation. She doesn't smoke however lives with her brother who smokes. She denied exposure to smoke. Vital signs stable, afebrile saturating 95% on room air. Review of Systems Constitutional: Reports: see HPI. Objective Last 24 Hrs of Vital Signs/I&O Vital Signs Date Time Temp Pulse Resp B/P B/P Pulse O2 O2 Flow FiO2 Mean Ox Delivery Rate 07/13 0901 98.2 70 20 104/56 07/13 0621 98.2 70 20 104/56 95 Room Air 07/13 0200 97.2 72 16 118/62 98 Room Air 07/12 2249 Room Air 07/12 2249 74 18 112/55 96 Room Air 07/12 1952 98.3 88 22 136/64 98 Room Air Intake & Output 07/13 1600 07/13 0800 07/13 0000 Intake Total 480 0 Output Total Balance 480 0 Intake, Oral 480 0 Patient 102.965 kg Weight Weight Reported by Patient Measurement Method Physical Exam General Appearance: Alert, Oriented X3, Cooperative, No Acute Distress Skin: No Rashes Skin Temp/Moisture Exam: Warm/Dry HEENT: Atraumatic, PERRLA, EOMI, Mucous Membr. moist/pink Neck: Supple Cardiovascular: Regular Rate, Normal S1, Normal S2, No Murmurs Lungs: Decrease air entery on left chest Fine scattered expiratory wheeze Abdomen: Normal Bowel Sounds, Soft, No Tenderness Neurological: Normal Speech, Strength at 5/5 X4 Ext, Normal Tone, Sensation Intact, Cranial Nerves 3-12 NL, Reflexes 2+ Extremities: No Clubbing, No Cyanosis, Normal Pulses, Bilateral trace edema Assessment/Plan Assessment: Patient is 62 year old female with past medical history significant for moderate obesity, major anxiety, bipolar disorder, significant vocal cord dysfunction, migraines, IBS, GERD, hypothyroidism, urinary incontinence, hyperlipidemia, Parkinson like features, JESUS non compliant with CPAP who was admitted in April 2017 for bronchitis, COPD exacerbation and community-acquired pneumonia. Patient presented to ED early this morning for COPD exacerbation failed outpatient management with significant shortness of breath. Plan COPD exacerbation felt outpatient management: * Leukocytosis without bandemia in setting of steroid use * Continue IV Solu-Medrol 40 mg every 8 * Continue by mouth azithromycin 250 mg daily * Continue Symbicort, TRC nebs * Pulmonary consultation pending * CT chest without contrast didn't reveal any ongoing infectious process * D-dimer negative * Follow up echocardiogram to rule out pulmonary hypertension and other causes of shortness of breath such as CHF Hypernatremia with elevated BUN(likely dehydration) * Resolved Bilateral lower extremity edema * proBNP Negative foe CHF excerbation Continue verapamil and statins, topamax, ranitidine and sucralfate DVT prophylaxis with subcutaneous Lovenox Code full code Problem List: 1. COPD (chronic obstructive pulmonary disease) Pain Ratin Pain Location: N/A Pain Goal: Pain 4 or less Pain Plan: See medication Tomorrow's Labs & Rationales: CBC, BMP Klever BARRETO,Kathy 07/13/17 0954: Attending MD Review Statement Attending Statement Attending MD Statement: examined this patient, discuss w/resident/PA/DONOR RELATIONS ASSOCIATE, agreed w/resident/PA/DONOR RELATIONS ASSOCIATE, reviewed images Attending Assessment/Plan: 62-year-old female past medical history of Parkinson's disease, hyperlipidemia, COPD, obstructive sleep apnea who is here with cough and shortness of breath. Over the past month patient has made multiple ED visits including June 15, June 21, July 06 and July 10 all for the same complaints. She has failed outpatient oral azithromycin and oral prednisone with ongoing complaints of cough and shortness of breath. Right now with treating her as a COPD exacerbation with bronchitis and she is on IV steroids and by mouth antibiotics. We will call pulmonary to see her and we have a CT chest noncontrast pending. Flu swab is also pending. Will get an echocardiogram to make sure there is no component of CHF and follow closely.
--- NOTE | 2017-07-13 11:33 | CT SCAN REPORT ---
EXAMINATION: CT CHEST WITHOUT CONTRAST CLINICAL INFORMATION: Persistent coughing and wheezing. COMPARISON: CXR from 07/12/2017. Chest CT from 06/11/2015. TECHNIQUE: Multidetector volumetric CT imaging of the chest was done. Axial MIP volume rendering provided. Sagittal and coronal reformatted images were obtained. DLP: 795 mGy-cm FINDINGS: LUNGS AND PLEURA: Trachea and central airways are widely patent and normal in caliber. There is a small amount of mucus within a peripheral bronchus at the right lung apex (image 71, series 4). Also, there is mucus within bronchi of the medial basal segment of the right lower lobe (images 268-285, series 4). The stable, small pleural-based nodular opacities along the right major fissure are likely lymph nodes (images 201 and 210, series 4). There is a stable 0.3 cm noncalcified nodule within the right upper lobe (image 129, series 4). Old, calcified granuloma within the left upper lobe (image 172, series 4). No interval development of a suspicious nodule, mass or pleural effusion. Again noted is the chronically elevated left diaphragm producing compressive atelectasis at the left lung base. MEDIASTINUM: The heart size is normal. No pericardial effusion. At the level of the right pulmonary artery, ascending thoracic aorta is ectatic, measuring 4 cm transverse, 4.1 cm AP; it was 4 cm on 06/11/2015. There is a small sliding-type hiatal hernia. The visualized portion of the thyroid gland is unremarkable. LYMPHATICS: No pathologic sized axillary, hilar or mediastinal lymph nodes. UPPER ABDOMEN: Adrenal glands are unremarkable. No suspicious lesions in the visualized solid or hollow viscera of the upper abdomen on this noncontrast exam. SKELETAL/CHEST WALL: Multilevel discovertebral degenerative change of the hyperkyphotic, dextroscoliotic thoracic spine. No aggressive osseous lesions. Bone islands of T2 and L1 vertebral bodies. IMPRESSION: 1. No evidence of pulmonary tumor, active pneumonia or lymphadenopathy. 2. There are some endobronchial secretions located in the right lung apex and medial right lower lobe, probably secondary to mild airway inflammation. 3. Mild ectasia of the ascending thoracic aorta (4.1 cm AP diameter). 4. Left diaphragm is chronically elevated and produces compressive atelectasis at the base of the left lower lobe and lingula. 5. Small, sliding-type hiatal hernia.
[2017-07-13 14:28] VITALS: BP 106/68
--- NOTE | 2017-07-13 17:15 | Discharge Summary ---
See Addendum Visit Information Visit Dates Admission Date: 07/12/17 Discharge Date: 07/15/17 Hospital Course Course Attending Physician: Klever BARRETO,Kathy Du Primary Care Physician: [facility] Course: Ms. 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 On admission Vital signs temperature 98.3, pulse 88, respiratory 22 saturating 98% on room air, blood pressure 136/64 Pertinent labs on admission Leukocytosis 13.5 with granulocytosis, H&H low at 0.9/34.4) Baseline MCV 80.7, hypernatremia 149, elevated BUN 24. CXR: Low lung volumes with bibasilar atelectasis. Patient was admitted to general medical floor for management of COPD exacerbation #COPD exacerbation failed outpatient management: She presented with history of shortness of breath, no hypoxia on admission, Leukocytosis without bandemia in setting of steroid use, remined afebrile throughout her hospital stay. Patient was started on IV Solu-Medrol 40 mg every 8 and by mouth azithromycin 250 mg daily for mild bronchitis in addition to Symbicort and TRC. Pulmonary consultation Christiano Peña MD was obtained with recommendation to continue by mouth azithromycin prophylactically after discharge 250 every OD and long steroid taper. Patient was later switched to by mouth prednisone 30 milligrams daily. Given history of large paraesophageal hernia and GERD, patient was kept on PPI and aspiration precaution. Patient will follow with pulmonology after discharge. Echocardiogram was obtained to evaluate right ventricular hypertension, pulmonary pressure this time is 32 in comparison to 2010 echocardiogram that showed pulmonary pressure of 24. It also revealed moderate concentric left ventricular hypertrophy with ejection fraction 55% and "peudonormal" filling pattern of left ventricle for age represent stage II diastolic dysfunction. Mildly increased resting left ventricular outflow tract velocity, normal right ventricular size and dysfunction and function, normal atrial size, trace mitral regurgitation, very mild aortic stenosis, trace tricuspid regurgitation. Mildly dilated proximal ascending aorta. Hypernatremia with elevated BUN(likely dehydration) * Resolved Bilateral lower extremity edema * proBNP Negative for CHF excerbation We continued verapamil and statins, topamax, ranitidine and sucralfate DVT prophylaxis with subcutaneous Lovenox Code full code Allergies: Coded Allergies: peanut (Severe, TONGUE SWELLING, DIFFICULTY BREATHING 02/18/17) pear (Severe, ANAPHYLAXIS 02/18/17) pepper (Severe, PEPPERS - TONGUE SWELLS 02/18/17) walnut (Severe, DIFFICULTY BREATHING 02/18/17) cefazolin (UNKNOWN 02/18/17) cefuroxime (UNKNOWN 02/18/17) ciprofloxacin (ITCHING WITH IV CIPRO ONLY-PT ABLE TO TAKE ORAL 02/18/17) clavulanic acid (From Augmentin) (HIVES, RASH 02/18/17) erythromycin base (From Erythrocin) (RASH 02/18/17) neomycin (UNKNOWN 02/18/17) penicillin V (UNKNOWN 02/18/17) polymyxin B (HIVES 02/18/17) quetiapine (From Seroquel) (BRIGHT RED & ITCHY 02/18/17) wheat (WHEAT SPROUTS - ITCHY 02/18/17) chocolate flavor (CHOCOLATE - MIGRAINS 02/18/17) lactose (DIARRHEA 02/18/17) Disposition Summary Disposition Principal Diagnosis: COPD exacerbation GERD and large paraesophageal hernia with endobronchial mucoid secretions Additional Diagnosis: Mild bronchitis Discharge Disposition: home health services Discharge Instructions General Discharge Information Code Status: Full Code Patient's Diet: Heart healthy Patient's Activity: As tolerated Follow-Up Instructions/Appts: -Please follow-up with primary care physician within 1 week after discharge -Please follow up with Dr. Peña within 1 week after discharge -Please take the antibiotic and steroid as dissected -Please continue taking her inhalers Medications at Discharge Discharge Medications: Stop taking the following medications: Moxifloxacin HCl (Moxifloxacin HCl) 400 MG TABLET ORAL DAILY Qty = 3 Prednisone (Prednisone) 5 MG TABLET ORAL SEE INSTRUCTIONS Qty = 13 Prednisone (Prednisone) 50 MG TABLET ORAL DAILY Qty = 4 Prednisone (Deltasone) 20 MG TABLET ORAL DAILY Qty = 8 Continue taking these medications: Albuterol Sulfate (Ventolin Hfa) 90 MCG HFA.AER.AD 2 Puff Inhale through mouth 4XDAILY Comments: DID NOT RECEIVE WHILE IN HOSPITAL Montelukast Sodium (Singulair) 10 MG TABLET 1 Tablet ORAL DAILY Comments: NOT GIVEN IN HOSPITAL Clonazepam (Clonazepam) 0.5 MG TABLET 1 Tablet ORAL THREE TIMES DAILY Comments: Last Taken: 07/15/17 Time: 1000am Topiramate (Topamax) 100 MG TABLET 1 Tablet ORAL TWICE DAILY Comments: Last Taken: 07/15/17 Time: 1000AM Budesonide/Formoterol Fumarate (Symbicort 160-4.5 Mcg Inhaler) 160 MCG-4.5 MCG/ ACTUATION HFA.AER.AD 2 Puff Inhale through mouth TWICE DAILY Comments: Last Taken: 07/15/17 Time: 1000AM Sucralfate (Carafate) 1 GRAM TABLET 1 Tablet ORAL TWICE DAILY as needed for GI Comments: DID NOT RECEIVE WHILE IN HOSPITAL Mirtazapine (Mirtazapine) 15 MG TABLET 1 Tablet ORAL Every night Comments: Last Taken: 07/14/17 Time: 9:00 pm Sertraline HCl (Sertraline HCl) 50 MG TABLET 1 Tablet ORAL DAILY Comments: Last Taken: 07/15/17 Time: 1000AM Ranitidine HCl (Zantac) 300 MG TABLET 1 Tablet ORAL TWICE DAILY Comments: not given in hospital Levalbuterol HCl (Xopenex) 0.63 MG/3 ML VIAL.NEB 1 Vial Inhale Solution THREE TIMES DAILY as needed for SHORTNESS OF BREATH Qty = 72 Comments: DID NOT RECEIVE WHILE IN HOSPITAL Rosuvastatin Calcium (Crestor) 10 MG TABLET 1 Tablet ORAL DAILY Qty = 30 Comments: NOT GIVEN Verapamil HCl (Verapamil ER) 240 MG TABLET.ER 1 Tablet ORAL DAILY Qty = 90 Comments: Last Taken: 07/15/17 Time: 1000AM Mirabegron (Myrbetriq) 50 MG TAB.ER.24H 1 Tablet ORAL DAILY Comments: NOT GIVEN IN HOSPITAL Levothyroxine Sodium (Levothyroxine Sodium) 88 MCG TABLET 1 Tablet ORAL DAILY BEFORE BREAKFAST Comments: Last Taken: 07/15/17 Time: 0600 am Tiotropium Br/Olodaterol HCl (Stiolto Respimat Inhal [place]) 2.5 MCG-2.5 MCG/ ACTUATION MIST.INHAL 2 PUFF Inhale through mouth Every Morning Comments: NOT GIVEN Aripiprazole (Abilify) 10 MG TABLET 1 Tablet ORAL DAILY Qty = 30 Comments: Last Taken: 07/15/17 Time: 1000AM Fluticasone Propionate (Fluticasone Propionate) 50 MCG/ACTUATION SPRAY.SUSP 2 [place] Both sides of nose DAILY Qty = 16 Comments: NOT GIVEN IN HOSPITAL Ondansetron HCl (Zofran) 4 MG TABLET 1 Tablet ORAL Every 6-8 Hours as Needed as needed for NAUSEA Qty = 10 Comments: NOT GIVEN IN HOSPITAL Benzonatate (Tessalon Perle) 100 MG CAPSULE 1 Capsule ORAL THREE TIMES DAILY as needed for COUGH Qty = 21 Comments: NOT GIVEN IN HOSPITAL Carbidopa/Levodopa (Carbidopa-Levodopa 25-100 Tab) 25 MG-100 MG TABLET 1 Tablet ORAL THREE TIMES DAILY Comments: Last Taken: 07/15/17 Time: 1000am Furosemide (Lasix) 40 MG TABLET 1 Tablet ORAL DAILY Qty = 30 Comments: Last Taken:07/15/17 Time: 1000AM Omeprazole (Omeprazole) 20 MG CAPSULE.DR 1 Tablet ORAL DAILY BEFORE BREAKFAST Qty = 15 Instructions: . Comments: Last Taken: 07/15/17 Time: 0530 AM Promethazine HCl/Codeine (Promethazine-Codeine Syrup) 6.25 MG-10 MG/5 ML SYRUP 5 Milliliters ORAL EVERY 4-6 HOURS as needed for COUGH Qty = 120 Instructions: ONE HUNDRED TWENTY CC'S, [id number] Comments: NOT GIVEN Start taking the following new medications: Azithromycin (Azithromycin) 250 MG TABLET 1 Tablet ORAL EVERY 48 HOURS (Every 2 days) Qty = 15 No Refills Instructions: TAKE ONE TAB EVERY OTHER DAY . Comments: Last Taken: 07/15/17 Time: 1000AM Prednisone (Prednisone) 10 MG TABLET 1 Tablet ORAL DAILY Qty = 12 No Refills Instructions: PLease Take 3 tabs on 07/16 Take 2 tabs on 07/17, 07/18, 07/19 Take 1 tab on 07/20, 07/21, 07/22 THEN CONTINUE ON 5 MG DAILY YOUR HOME DOSE. Comments: PREDNISONE 30MG PO GIVEN 07/15/17 @1000AM Copies To: Mariana BARRETO,Christiano Cook
--- NOTE | 2017-07-13 19:56 | Cons- Pulmonary ---
General Information and HPI Consulting Request Date of Consult: 07/13/17 Requested By: med team History of Present Illness: Ms. Alexandre is a 62-year-old lady with past medical history significant for migraine headaches, Parkinson's disease, glaucoma, hyperlipidemia, asthma/COPD, pneumonia, diverticulitis, GERD, IBS, hiatal hernia, rotator cuff tendinitis, arthritis, anxiety, bipolar disorder, depression and hypothyroidism , was seen in the ER 2 days ago returns with dyspnea and productive cough that has been going on for the past 2 months. Patient states that she was in her usual state of health until early April when she went on a vacation to [place], she got with endocrine and got sick with dyspnea, congestion, cough with production of dark green colored sputum, fever and chills. She also complains of chest discomfort, states it feels like somebody is sitting on her chest, and is worse with movement and with coughing. She has multiple recent ER visits for similar complaints, and was also admitted for 4 days for possible pneumonia beginning of May. States her symptoms would somewhat get better but then returned again. She has shortness of breath with exertion at baseline. SHe is on azithro 3/ week Review of Systems Constitutional: Reports: no symptoms. EENTM: Reports: no symptoms. Cardiovascular: Reports: no symptoms. Respiratory: Reports: cough, short of breath, sputum production. GI: Reports: no symptoms. Genitourinary: Reports: no symptoms. Musculoskeletal: Reports: no symptoms. Skin: Reports: no symptoms. Neurological/Psychological: Reports: no symptoms. Hematologic/Endocrine: Reports: no symptoms. Immunologic/Allergic: Reports: no symptoms. All Other Systems: Reviewed and Negative Allergies/Medications Allergies: Coded Allergies: peanut (Severe, TONGUE SWELLING, DIFFICULTY BREATHING 02/18/17) pear (Severe, ANAPHYLAXIS 02/18/17) pepper (Severe, PEPPERS - TONGUE SWELLS 02/18/17) walnut (Severe, DIFFICULTY BREATHING 02/18/17) cefazolin (UNKNOWN 02/18/17) cefuroxime (UNKNOWN 02/18/17) ciprofloxacin (ITCHING WITH IV CIPRO ONLY-PT ABLE TO TAKE ORAL 02/18/17) clavulanic acid (From Augmentin) (HIVES, RASH 02/18/17) erythromycin base (From Erythrocin) (RASH 02/18/17) neomycin (UNKNOWN 02/18/17) penicillin V (UNKNOWN 02/18/17) polymyxin B (HIVES 02/18/17) quetiapine (From Seroquel) (BRIGHT RED & ITCHY 02/18/17) wheat (WHEAT SPROUTS - ITCHY 02/18/17) chocolate flavor (CHOCOLATE - MIGRAINS 02/18/17) lactose (DIARRHEA 02/18/17) Home Med List: Albuterol Sulfate (Ventolin Hfa) 90 MCG HFA.AER.AD 2 PUF INH 4XDAILY ASTHMA ( Reported) Aripiprazole (Abilify) 10 MG TABLET 1 TAB PO DAILY MENTAL HEALTH (Reported) Benzonatate (Tessalon Perle) 100 MG CAPSULE 1 CAP PO TID PRN COUGH Budesonide/Formoterol Fumarate (Symbicort 160-4.5 Mcg Inhaler) 160 MCG-4.5 MCG/ ACTUATION HFA.AER.AD 2 PUF INH BID COPD (Reported) Carbidopa/Levodopa (Carbidopa-Levodopa 25-100 Tab) 25 MG-100 MG TABLET 1 TAB PO TID Parkinsons (Reported) Clonazepam 0.5 MG TABLET 1 TAB PO TID ANXIETY (Reported) Fluticasone Propionate 50 MCG/ACTUATION SPRAY.SUSP 2 SPRAY [place] DAILY ALLERGIES (Reported) Furosemide (Lasix) 40 MG TABLET 1 TAB PO DAILY SWELLING Levalbuterol HCl (Xopenex) 0.63 MG/3 ML VIAL.NEB 1 Vial INH/DOMINGA TID PRN SHORTNESS OF BREATH Levothyroxine Sodium 88 MCG TABLET 1 TAB PO DAILY AC THYROID (Reported) Mirabegron (Myrbetriq) 50 MG TAB.ER.24H 1 TAB PO DAILY URINARY INCONTINENCE ( Reported) Mirtazapine 15 MG TABLET 1 TAB PO QPM SLEEP (Reported) Montelukast Sodium (Singulair) 10 MG TABLET 1 TAB PO DAILY ASTHMA (Reported) Moxifloxacin HCl 400 MG TABLET 1 TAB PO DAILY LUNG INFECTION . Omeprazole 20 MG CAPSULE.DR 1 TAB PO DAILY AC STOMACH . Ondansetron HCl (Zofran) 4 MG TABLET 1 TAB PO Q6-8P PRN NAUSEA Prednisone 5 MG TABLET 0 PO SEE ADMIN CRITERIA COPD . Prednisone (Deltasone) 20 MG TABLET 2 TAB PO DAILY WHEEZING BEGIN TOMORROW Prednisone 50 MG TABLET 1 TAB PO DAILY ASTHMATIC BRONCHITIS Promethazine HCl/Codeine (Promethazine-Codeine Syrup) 6.25 MG-10 MG/5 ML SYRUP 5 ML PO Q4-6 PRN COUGH ONE HUNDRED TWENTY CC'S, [id number] Ranitidine HCl (Zantac) 300 MG TABLET 1 TAB PO BID GI (Reported) Rosuvastatin Calcium (Crestor) 10 MG TABLET 1 TAB PO DAILY CHOL (Reported) Sertraline HCl 50 MG TABLET 1 TAB PO DAILY MENTAL HEALTH (Reported) Sucralfate (Carafate) 1 GRAM TABLET 1 TAB PO BID PRN GI (Reported) Tiotropium Br/Olodaterol HCl (Stiolto Respimat Inhal [place]) 2.5 MCG-2.5 MCG/ ACTUATION MIST.INHAL 2 PUFF INH QAM ASTHMA (Reported) Topiramate (Topamax) 100 MG TABLET 1 TAB PO BID MIGRAINES (Reported) Verapamil HCl (Verapamil ER) 240 MG TABLET.ER 1 TAB PO DAILY migraines ( Reported) Review of Systems Review of Systems Constitutional: Reports: see HPI. 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 Home Who Do You Live With? sibling Services at Home: None Smoking Status: Former Smoker ETOH Use: denies use Illicit Drug Use: denies illicit drug use Functional Ability ADLs Independent: dressing, eating, toileting, bathing. Ambulation: independent IADLs Needs Assist: housework. Exam & Diagnostic Data Last 24 Hrs of Vital Signs/I&O Vital Signs Date Time Temp Pulse Resp B/P B/P Pulse O2 O2 Flow FiO2 Mean Ox Delivery Rate 01/08 1428 Room Air 07/13 1428 99.0 75 16 106/68 96 Room Air 07/13 1241 98.2 75 20 108/60 96 Room Air 07/13 0901 98.2 70 20 104/56 07/13 0621 98.2 70 20 104/56 95 Room Air 07/13 0200 97.2 72 16 118/62 98 Room Air 07/12 2249 Room Air 07/12 2249 74 18 112/55 96 Room Air Intake & Output 07/13 1600 07/13 0800 07/13 0000 Intake Total 480 0 Output Total Balance 480 0 Intake, Oral 480 0 Patient 227 lb 227 lb Weight Weight Reported by Patient Measurement Method Last 48 Hrs of Labs/Diogenes: Laboratory Tests 07/13/17 0539: Anion Gap 13, Estimated GFR > 60, BUN/Creatinine Ratio 28.6 H, CBC w Diff NO MAN DIFF REQ, RBC 4.19 L, MCV 80.7 L, MCH 25.7 L, RDW 19.3 H, MPV 8.6, Gran % 95.0 H, Lymphocytes % 4.9 L, Monocytes % 0.1 L, Eosinophils % 0, Basophils % 0, Absolute Granulocytes 11.9 H, Absolute Lymphocytes 0.6 L, Absolute Monocytes 0 L, Absolute Eosinophils 0, Absolute Basophils 0, PUBS MCHC 31.9 L 07/12/17 2015: Anion Gap 14, Estimated GFR > 60, BUN/Creatinine Ratio 30.0 H, Glucose 122 H, Calcium 9.1, Total Bilirubin 0.2, Direct Bilirubin 0.2, AST 17, ALT 28, Alkaline Phosphatase 81, Troponin I < 0.01, Ijy-R-Naeizozkbkl Pept 76.4, Total Protein 6.4, Albumin 4.0, Amylase 45, Lipase 163, D-Dimer High Sensitivty < 200, CBC w Diff NO MAN DIFF REQ, RBC 4.27, MCV 80.7 L, MCH 25.6 L, RDW 19.7 H, MPV 8.8, Gran % 83.4 H, Lymphocytes % 11.1 L, Monocytes % 5.2, Eosinophils % 0, Basophils % 0.3, Absolute Granulocytes 11.3 H, Absolute Lymphocytes 1.5, Absolute Monocytes 0.7 H, Absolute Eosinophils 0, Absolute Basophils 0, PUBS MCHC 31.8 L Assessment/Plan Impression/Plan: CT chest IMPRESSION: 1. No evidence of pulmonary tumor, active pneumonia or lymphadenopathy. 2. There are some endobronchial secretions located in the right lung apex and medial right lower lobe, probably secondary to mild airway inflammation. 3. Mild ectasia of the ascending thoracic aorta (4.1 cm AP diameter). 4. Left diaphragm is chronically elevated and produces compressive atelectasis at the base of the left lower lobe and lingula. 5. Small, sliding-type hiatal hernia. DICTATED BY: Reji Rao MD DATE/TIME DICTATED:07/13/171118 Physical Exam General Appearance Alert, Oriented X3, Cooperative Skin No Rashes, No Breakdown HEENT Atraumatic, PERRLA, EOMI, dry mucous membranes, dilated pupils Neck Supple, No JVD, No thryomegaly Lymphatic Cervical nl Cardiovascular Regular Rate, Normal S1, Normal S2 Lungs decreased air movement in bilateral lung ray with audible wheezing Abdomen Normal Bowel Sounds, Soft, No Tenderness Extremities No Clubbing, No Cyanosis, No Edema, Normal Pulses IMPRESSION 62-year-old female with a past medical history of morbid obesity, may mild asthma, major anxiety, bipolar disorder with significant vocal cord dysfunction, migraines, IBS, GERD, hypothyroidism, urinary incontinence, hyperlipidemia, Parkinson like features now with Bronchitis Mild asthma with mild chronic obstructive pulmonary disease. sig steroid dependency in the past with cough, recent travel with * Mild bronchitis * Pt has a sig psycological steroid dependence/ made worse by recurrent bronchitis despite qod azithro * Chronic left diapharam paralysis with chronic left lower lobe atx with pna * Large paraesophageal hernia with recurrent asp from gerd pt s/p rene fundoplication many yrs ago, which is causing the issue * VC dysfucntion mainly psycogenic * Morbid obesity with JESUS on cpap not too compliant * Sig psychiatric issues needs agg rx REC Reduce steroid to 30 mg from am Needs a longer steroid taper, and however she does get prednisone from multiple providers and this has been difficult to attain PO azitro COnt inhalers / singulair etc Keep hob up cont sucralfate COnt ppi cont other meds WIll follow Consult Acknowledgment - Thank you for your consult request.
[2017-07-13 22:32] VITALS: BP 110/70
[2017-07-14 06:15] VITALS: BP 122/76
--- NOTE | 2017-07-14 08:10 | PN- Housestaff ---
Marcelino BARRETO,[facility] 07/14/17 0810: Subjective Follow-up For: COPD excerbation Subjective: Patient was seen and examined this morning, offered no complaints. Vitals are stable, sat 93% on RA. COntinue to have chronic dry cough. No overnights events. Review of Systems Constitutional: Reports: see HPI. Objective Last 24 Hrs of Vital Signs/I&O Vital Signs Date Time Temp Pulse Resp B/P B/P Pulse O2 O2 Flow FiO2 Mean Ox Delivery Rate 07/14 1448 98.0 74 20 106/68 97 Room Air 07/14 1202 97 Room Air 07/14 0810 98 Room Air 07/14 0800 95 Room Air 07/14 0615 97.8 73 20 122/76 93 07/14 0000 Room Air 07/13 2232 98.6 73 20 110/70 95 Room Air 07/13 2057 Room Air Room Air Intake & Output 07/14 1600 07/14 0800 07/14 0000 Intake Total 910 240 465 Output Total Balance 910 240 465 Intake, IV 10 225 Intake, Oral 900 240 240 Number 0 Bowel Movements Physical Exam General Appearance: Alert, Oriented X3, Cooperative, No Acute Distress Skin: No Rashes HEENT: Atraumatic, PERRLA, EOMI, Mucous Membr. moist/pink Neck: Supple Cardiovascular: Regular Rate, Normal S1, Normal S2, No Murmurs Lungs: BL expiratory fine wheeze Abdomen: Normal Bowel Sounds, Soft, No Tenderness Neurological: Normal Gait, Normal Speech, Strength at 5/5 X4 Ext, Normal Tone, Sensation Intact, Cranial Nerves 3-12 NL, Reflexes 2+ Extremities: No Clubbing, No Cyanosis, No Edema, Normal Pulses Assessment/Plan Assessment: Patient is 62 year old female with past medical history significant for moderate obesity, major anxiety, bipolar disorder, significant vocal cord dysfunction, migraines, IBS, GERD, hypothyroidism, urinary incontinence, hyperlipidemia, Parkinson like features, JESUS non compliant with CPAP who was admitted in April 2017 for bronchitis, COPD exacerbation and community-acquired pneumonia. Patient presented to ED early this morning for COPD exacerbation failed outpatient management with significant shortness of breath. Plan COPD exacerbation felt outpatient management: * Leukocytosis without bandemia in setting of steroid use * Switched to prednisone 30 mg, would do long taper * Continue by mouth azithromycin 250 mg daily * Continue Symbicort, TRC nebs * Pulmonary consultation obtained, thanks recommendation * CT chest without contrast didn't reveal any ongoing infectious process * D-dimer negative * Follow up echocardiogram to rule out pulmonary hypertension and other causes of shortness of breath such as CHF Hypernatremia with elevated BUN(likely dehydration) * Resolved Bilateral lower extremity edema * proBNP Negative foe CHF excerbation Continue verapamil and statins, topamax, ranitidine and sucralfate DVT prophylaxis with subcutaneous Lovenox Code full code Problem List: 1. COPD exacerbation Pain Ratin Pain Location: N/A Pain Goal: Pain 4 or less Pain Plan: See medication Tomorrow's Labs & Rationales: CBC Klever BARRETO,Kathy 07/14/17 1336: Attending MD Review Statement Attending Statement Attending MD Statement: examined this patient, discuss w/resident/PA/MANAGER PROGRAM MANAGEMENT, agreed w/resident/PA/MANAGER PROGRAM MANAGEMENT, reviewed EMR data (avail), discussed with nursing, reviewed images Attending Assessment/Plan: Patient says overall she is doing about the same. Still feels short of breath and coughing. Appreciate pulmonary consult and will switch her to prednisone. She is chronically steroid dependent and her large hiatal hernia with mucoid secretions suggest recurrent aspiration /bronchitis. We'll continue by mouth azithromycin, taper the O2 and follow-up.
[2017-07-14 08:31] LABS: ABSOLUTE BASOPHIL COUNT 0 /CUMM (0.0-0.2); ABSOLUTE EOSINOPHIL COUNT 0 /CUMM (0.0-0.7); ABSOLUTE GRANULOCYTE CT 14.1 /CUMM (1.4-6.5); ABSOLUTE MONOCYTE COUNT 0.3 /CUMM (0.10-0.60); BASOPHIL % 0 % (0.0-2.0); EOSINOPHIL % 0.2 % (0-5); HEMATOCRIT 32.7 % (37-47); MEAN CORPUSCULAR HGB 25.8 PG (27.0-31.0); MEAN CORPUSCULAR VOLUME 80.8 FL (81.0-99.0); PLATELET COUNT 277 /CUMM (130-400); RBC DISTRIBUTION WIDTH 19.2 % (11.5-14.5); RED BLOOD CELL CT 4.05 /CUMM (4.20-5.40); WHITE BLOOD CELL COUNT 15.5 /CUMM (4.8-10.8)
[2017-07-14 09:20] LABS: GRANULOCYTE % 91.2 % (42.2-75.2)
[2017-07-14 14:48] VITALS: BP 106/68
--- NOTE | 2017-07-14 14:53 | PN- Pulmonary ---
Subjective HPI/Critical Care Issues: Mild ongoing wheezing Dry cough Objective Current Medications: Current Medications Sig/Sonia Start time Last Medication Dose Route Stop Time Status Admin Acetaminophen 650 MG Q6P PRN 07/13 010 AC PO Acetaminophen 1,000 MG Q6P PRN 07/13 0100 AC IV Albuterol Sulfate 3 ML TID 07/13 2200 AC 07/14 INH 1201 Aripiprazole 10 MG DAILY 07/13 1000 AC 07/14 PO 1001 Atorvastatin Calcium 40 MG 1700 07/13 1700 AC 07/13 PO 1809 Azithromycin 250 MG DAILY 07/13 0130 AC 07/14 PO 1001 Budesonide/ 2 PUF BID 07/13 0052 AC 07/14 Formoterol Fumarate INH 1001 Carbidopa/Levodopa 1 TAB TID 07/13 129 AC 07/14 PO 1001 Clonazepam 0.5 MG TID 07/13 0052 AC 07/14 PO 07/20 0051 1001 Enoxaparin Sodium 40 MG DAILY 07/13 1000 AC 07/14 SC 1000 Famotidine 20 MG BID 07/13 1000 AC 07/14 PO 1001 Furosemide 40 MG DAILY 07/13 1000 AC 07/14 PO 1001 Levothyroxine Sodium 0.088 MG DAILY AC 07/13 0700 AC 07/14 PO 0520 Methylprednisolone 30 MG Q8 07/14 1400 CAN IV Methylprednisolone 40 MG Q8 07/13 0130 DC 07/14 IV 0520 Mirtazapine 15 MG QPM 07/13 2200 AC 07/13 PO 2228 Montelukast Sodium 10 MG 2200 07/13 2200 AC 07/13 PO 2228 Omeprazole 20 MG DAILY AC 07/13 0700 AC 07/14 PO 0521 Prednisone 30 MG DAILY 07/14 1000 AC 07/14 PO 1144 Sertraline HCl 50 MG DAILY 07/13 1000 AC 07/14 PO 1001 Sodium Chloride 1,000 ML ONCE ONE 07/13 0245 DC 07/13 IV 07/13 1604 0302 Sucralfate 1,000 MG BID PRN 07/13 0100 AC PO Topiramate 100 MG BID 07/13 0130 AC 07/14 PO 1001 Verapamil HCl 240 MG DAILY 07/13 1000 AC 07/14 PO 1001 Vital Signs & I&O Last 24 Hrs of Vitals and I&O: Vital Signs Date Time Temp Pulse Resp B/P B/P Pulse O2 O2 Flow FiO2 Mean Ox Delivery Rate 07/14 1448 98.0 74 20 106/68 97 Room Air 07/14 1202 97 Room Air 07/14 0810 98 Room Air 07/14 0800 95 Room Air 07/14 0615 97.8 73 20 122/76 93 07/14 0000 Room Air 07/13 2232 98.6 73 20 110/70 95 Room Air 07/13 2057 Room Air Room Air Intake & Output 07/14 1600 07/14 0800 07/14 0000 Intake Total 910 240 465 Output Total Balance 910 240 465 Intake, IV 10 225 Intake, Oral 900 240 240 Number 0 Bowel Movements Impression/Plan Impression/Plan Impression/Plan: CT chest IMPRESSION: 1. No evidence of pulmonary tumor, active pneumonia or lymphadenopathy. 2. There are some endobronchial secretions located in the right lung apex and medial right lower lobe, probably secondary to mild airway inflammation. 3. Mild ectasia of the ascending thoracic aorta (4.1 cm AP diameter). 4. Left diaphragm is chronically elevated and produces compressive atelectasis at the base of the left lower lobe and lingula. 5. Small, sliding-type hiatal hernia. DICTATED BY: Reji Rao MD DATE/TIME DICTATED:07/13/171118 Physical Exam General Appearance Alert, Oriented X3, Cooperative Skin No Rashes, No Breakdown HEENT Atraumatic, PERRLA, EOMI, dry mucous membranes, dilated pupils Neck Supple, No JVD, No thryomegaly Lymphatic Cervical nl Cardiovascular Regular Rate, Normal S1, Normal S2 Lungs decreased air movement in bilateral lung ray with audible wheezing Abdomen Normal Bowel Sounds, Soft, No Tenderness Extremities No Clubbing, No Cyanosis, No Edema, Normal Pulses IMPRESSION 62-year-old female with a past medical history of morbid obesity, may mild asthma, major anxiety, bipolar disorder with significant vocal cord dysfunction, migraines, IBS, GERD, hypothyroidism, urinary incontinence, hyperlipidemia, Parkinson like features now with Bronchitis Mild asthma with mild chronic obstructive pulmonary disease. 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 atx with pna * Large paraesophageal hernia with recurrent asp from gerd pt s/p rene fundoplication many yrs ago, which is causing the issue * VC dysfucntion mainly psycogenic * Morbid obesity with JESUS on cpap not too compliant * Sig psychiatric issues needs agg rx REC Reduce steroid to 30 mg Needs a longer steroid taper, and however she does get prednisone from multiple providers and this has been difficult to attain PO azitro daily and upon dc 250 q0d Will eval and see if would benefit from Il-5 antibody injections in the future COnt inhalers / singulair etc Keep hob up cont sucralfate COnt ppi cont other meds WIll follow Ok to dc
[2017-07-14] MEDS ORDERED: AZITHROMYCIN250 M1 PO (16:55)
[2017-07-14] MEDS ORDERED: PREDNISONE10 M2 PO (16:55)
--- NOTE | 2017-07-14 16:56 | Patient Discharge Instructions ---
Discharge Instructions General Discharge Information You were seen/treated for: COPD exacerbation Special Instructions: -Please follow-up with primary care physician within 1 week after discharge -Please follow up with Dr. Peña within 1 week after discharge -Please take the antibiotic and steroid as dissected -Please continue taking her inhalers Acute Coronary Syndrome Inclusion Criteria At DC or during hospital stay patient has or had the following: ACS DIAGNOSIS No Discharge Core Measures Meds if any: Prescribed or Continued at Discharge Meds if any: NOT Prescribed or Continued at Discharge Congestive Heart Failure Inclusion Criteria At DC or during hospital stay patient has or had the following: CHF DIAGNOSIS No Discharge Core Measures Meds if any: Prescribed or Continued at Discharge Meds if any: NOT Prescribed or Continued at Discharge Cerebrovascular accident Inclusion Criteria At DC or during hospital stay patient has or had the following: CVA/TIA Diagnosis No Discharge Core Measures Meds if any: Prescribed or Continued at Discharge Meds if any: NOT Prescribed or Continued at Discharge Venous thromboembolism Inclusion Criteria VTE Diagnosis No VTE Type NONE VTE Confirmed by (Test) NONE Discharge Core Measures - Per Current guidelines, there needs to be overlap - treatment for the first 5 days of Warfarin therapy. - If discharged on Warfarin prior to 5 days of - overlap therapy, the patient will need to be - assessed for post discharge needs including - *Post discharge parental anticoagulation - *Warfarin and/or parental anticoagulation education - *Follow up date to check INR post discharge At least 5 days overlap therapy as Inpatient Yes Meds if any: Prescribed or Continued at Discharge Note: Overlap Therapy is Warfarin and Anticoagulant Meds if any: NOT Prescribed or Continued at Discharge
[2017-07-14 22:14] VITALS: BP 110/70
[2017-07-15 07:08] VITALS: BP 112/64
[2017-07-15] MEDS ORDERED: AZITHROMYCIN250 M1 PO ×2 (09:14→09:33)
[2017-07-15] MEDS ORDERED: PREDNISONE10 M2 PO ×2 (09:14→09:33)
--- NOTE | 2017-07-15 10:28 | ECHOCARDIOGRAM REPORT ---
WILLOW VILLA Age: 62 : 1955 Gender: F Exam Date: 07/14/2017 19:26 Exam Location: [address] [place] [address] Ht (in): 62 Wt (lb): 226 BSA: 2.17 BP: 122 / 76 Ordering Physician: Ronnie Benson MD Referring Physician: Moises Bauer MD Technologist: Jennifer Martínez [facility] Room Number: 206 Indications: SHORTNESS OF BREATH Rhythm: Sinus Technical Quality: Poor FINDINGS Left Ventricle Normal size left ventricle. Moderate concentric left ventricular hypertrophy. No obvious regional wall motion abnormalities. Normal left ventricular ejection fraction visually estimated at 55%. "pseudonormal" filling pattern of the left ventricle for age (stage 2 diastolic dysfunction). Mildly increased resting left ventricular outflow tract velocity (1.4 m/s). Right Ventricle Normal right ventricular size and function. Right Atrium Normal right atrial size. Left Atrium Normal left atrial size. Mitral Valve Mild mitral annular calcification. Mitral valve mildly thickened. Trace mitral regurgitation. Aortic Valve Trileaflet aortic valve. Diffuse mild thickening of the aortic valve cusps with mildly reduced excursion. Very mild aortic stenosis. No aortic regurgitation. Tricuspid Valve Structurally normal tricuspid valve. Trace tricuspid regurgitation. Right ventricular systolic pressure estimated at 32 mmHg. Pulmonic Valve Pulmonic valve not well visualized, grossly normal. No pulmonic regurgitation. Pericardium No pericardial effusion. Great Vessels Normal size aortic root. Mildly dilated proximal ascending aorta (tube). CONCLUSIONS Normal size left ventricle. Moderate concentric left ventricular hypertrophy. Normal left ventricular ejection fraction visually estimated at 55%. "pseudonormal" filling pattern of the left ventricle for age (stage 2 diastolic dysfunction). Mildly increased resting left ventricular outflow tract velocity (1.4 m/s). Normal right ventricular size and function. Normal atrial size. Trace mitral regurgitation. Very mild aortic stenosis. Trace tricuspid regurgitation. Right ventricular systolic pressure estimated at 32 mmHg. Mildly dilated proximal ascending aorta (tube). Moises Bauer M.D. (Electronically Signed) Final Date: 15 July 2017 10:27 MEASUREMENTS (Male / Female) Normal Values 2D ECHO LV Diastolic Diameter PLAX 3.9 cm 4.2 - 5.9 / 3.9 - 5.3 cm LV Systolic Diameter PLAX 1.6 cm 2.1 - 4.0 cm LV Fractional Shortening PLAX 59.0 % 25 - 46 % LV Ejection Fraction 2D Teich 89.1 % IVS Diastolic Thickness 1.5 cm LVPW Diastolic Thickness 1.4 cm LV Relative Wall Thickness 0.7 RV Internal Dim ED PLAX 2.4 cm 1.9 - 3.8 cm LVOT Diameter 2.1 cm Aortic Root Diameter 2.5 cm LA Systolic Diameter LX 3.8 cm 3.0 - 4.0 / 2.7 - 3.8 cm LA Volume 34.0 cm 18 - 58 / 22 - 52 cm Ascending Aorta Diameter 3.9 cm DOPPLER AV Peak Velocity 200.0 cm/s AV Peak Gradient 16.0 mmHg AV Mean Velocity 141.0 cm/s AV Mean Gradient 9.0 mmHg AV Velocity Time Integral 42.0 cm LVOT Peak Velocity 137.0 cm/s LVOT Peak Gradient 7.5 mmHg LVOT Mean Velocity 90.0 cm/s LVOT Mean Gradient 4.0 mmHg LVOT Velocity Time Integral 28.8 cm LVOT Stroke Volume 99.8 cm AV Area Cont Eq vti 2.4 cm AV Area Cont Eq pk 2.4 cm MV Peak Velocity 136.0 cm/s MV Peak Gradient 7.4 mmHg MV Mean Velocity 81.8 cm/s MV Mean Gradient 3.0 mmHg Mitral E Point Velocity 101.0 cm/s Mitral A Point Velocity 106.0 cm/s Mitral E to A Ratio 1.0 MV PHT Velocity 141.0 cm/s MV Deceleration Mccone 427.0 cm/s MV Pressure Half Time 99.1 ms MV Area PHT 2.2 cm MV Deceleration Time 243.0 ms TR Peak Velocity 261.0 cm/s TR Peak Gradient 27.2 mmHg Right Atrial Pressure 5.0 mmHg Pulmonary Artery Systolic Pressu 32.2 mmHg Right Ventricular Systolic Press 32.2 mmHg PV Peak Velocity 157.0 cm/s PV Peak Gradient 9.9 mmHg PV Mean Velocity 96.7 cm/s PV Mean Gradient 5.0 mmHg PV Velocity Time Integral 29.1 cm LV E' Lateral Velocity 10.2 cm/s Mitral E to LV E' Lateral Ratio 9.9 LV E' Septal Velocity 8.3 cm/s Mitral E to LV E' Septal Ratio 12.2
--- NOTE | 2017-07-15 10:40 | PN- Housestaff ---
Marcelino BARRETO,[facility] 07/15/17 1039: Subjective Follow-up For: COPD excerbation Subjective: Patient seen and examined, nocomplaints, vitals stable. Saturating well on room air. Review of Systems Constitutional: Reports: see HPI. Objective Last 24 Hrs of Vital Signs/I&O Vital Signs Date Time Temp Pulse Resp B/P B/P Pulse O2 O2 Flow FiO2 Mean Ox Delivery Rate 07/15 904 96 Room Air Room Air 07/15 0800 95 Room Air 07/15 0708 98.3 66 18 112/64 93 07/15 0000 97 Room Air 07/14 2214 98.3 70 19 110/70 97 Room Air 07/14 1851 96 Room Air Intake & Output 07/15 1600 07/15 0800 07/15 0000 Intake Total 810 240 Output Total Balance 810 240 Intake, IV 10 Intake, Oral 800 240 Number 1 0 Bowel Movements Physical Exam General Appearance: Alert, Oriented X3, Cooperative, No Acute Distress Skin: No Rashes Skin Temp/Moisture Exam: Warm/Dry HEENT: Atraumatic, PERRLA, EOMI, Mucous Membr. moist/pink Neck: Supple Cardiovascular: Regular Rate, Normal S1, Normal S2, No Murmurs Lungs: Normal Air Movement, mild scattered wheeze Abdomen: Normal Bowel Sounds, Soft, No Tenderness Neurological: Normal Speech, Strength at 5/5 X4 Ext, Normal Tone, Sensation Intact, Cranial Nerves 3-12 NL, Reflexes 2+ Extremities: No Clubbing, No Cyanosis, No Edema Assessment/Plan Assessment: Patient is 62 year old female with past medical history significant for moderate obesity, major anxiety, bipolar disorder, significant vocal cord dysfunction, migraines, IBS, GERD, hypothyroidism, urinary incontinence, hyperlipidemia, Parkinson like features, JESUS non compliant with CPAP who was admitted in April 2017 for bronchitis, COPD exacerbation and community-acquired pneumonia. Patient presented to ED early this morning for COPD exacerbation failed outpatient management with significant shortness of breath. Plan COPD exacerbation felt outpatient management: * Leukocytosis without bandemia in setting of steroid use * Continue prednisone 30 mg, would do long taper * Continue by mouth azithromycin 250 mg daily * Continue Symbicort, TRC nebs * Pulmonary consultation obtained, thanks recommendation * CT chest without contrast didn't reveal any ongoing infectious process * D-dimer negative * Follow up echocardiogram to rule out pulmonary hypertension and other causes of shortness of breath such as CHF Hypernatremia with elevated BUN(likely dehydration) * Resolved Bilateral lower extremity edema * proBNP Negative for CHF excerbation Continue verapamil and statins, topamax, ranitidine and sucralfate DVT prophylaxis with subcutaneous Lovenox Code full code Patient will be discharged today Problem List: 1. Bronchitis Pain Ratin Pain Location: N/A Pain Goal: Pain 4 or less Pain Plan: See medication Tomorrow's Labs & Rationales: N/A Kathy Ernst MD 07/15/17 1311: Attending MD Review Statement Attending Statement Attending MD Statement: examined this patient, discuss w/resident/PA/EXAMINATION PROCTOR, agreed w/resident/PA/EXAMINATION PROCTOR, discussed with nursing, discussed with case mgmt Attending Assessment/Plan: Patient states that she does feel better. She is off oxygen. However she is reluctant to go home. She states that she doesn't have a ride for today and her car won't be available until tomorrow. She is a 62-year-old with extensive psychiatric history, anxiety, vocal cord dysfunction, large paraesophageal hernia and COPD- chronically prednisone-dependent. We treated her for a COPD exacerbation and a bacterial bronchitis with a CT chest that showed mucoid secretions. She is on a very aggressive antiacid regimen with sucralfate and a PPI. She is going to leave on a slow prednisone taper of prednisone 40 mg a day and decrease by 10 mg every 3 days till she reaches her usual dose of 5 mg. We will also set her up with a COPD clinic and with visiting nurse service. I reassured her at length and case management is arranging transport for her to go home. I do worry that given all of her competing issues and has significant psychiatric comorbidities recurrent admissions could be a problem.
--- NOTE | 2017-07-15 14:25 | PN- Pulmonary ---
Subjective HPI/Critical Care Issues: Stable no new issues discussed with the patient about her steroid use Objective Current Medications: Current Medications Sig/Sonia Start time Last Medication Dose Route Stop Time Status Admin Acetaminophen 650 MG Q6P PRN 07/13 99 DCD PO Acetaminophen 1,000 MG Q6P PRN 07/13 010 DCD IV Albuterol Sulfate 3 ML TID 07/130 DCD 07/15 INH 0902 Aripiprazole 10 MG DAILY 07/13 1000 DCD 07/15 PO 0941 Atorvastatin Calcium 40 MG 1700 07/13 1700 DCD 07/14 PO 1638 Azithromycin 250 MG DAILY 07/13 129 DCD 07/15 PO 0941 Budesonide/ 2 PUF BID 07/13 51 DCD 07/15 Formoterol Fumarate INH 0942 Carbidopa/Levodopa 1 TAB TID 07/13 129 DCD 07/15 PO 0941 Clonazepam 0.5 MG TID 07/13 51 DCD 07/15 PO 07/20 005 0942 Enoxaparin Sodium 40 MG DAILY 07/13 999 DCD 07/15 SC 0942 Famotidine 20 MG BID 07/13 999 DCD 07/15 PO 0941 Furosemide 40 MG DAILY 07/13 999 DCD 07/15 PO 0941 Levothyroxine Sodium 0.088 MG DAILY AC 07/13 699 DCD 07/15 PO 0608 Magnesium Hydroxide 30 ML ONE ONE 07/15 09 DC PO 07/15 0946 Mirtazapine 15 MG QPM 07/13 2199 DCD 07/14 PO 2218 Montelukast Sodium 10 MG 0 07/13 2199 DCD 07/14 PO 2218 Omeprazole 20 MG DAILY AC 07/13 699 DCD 07/15 PO 0608 Prednisone 30 MG DAILY 07/14 1000 DCD 07/15 PO 0940 Sertraline HCl 50 MG DAILY 07/13 999 DCD 07/15 PO 0941 Sucralfate 1,000 MG BID PRN 07/13 99 DCD PO Topiramate 100 MG BID 07/13 129 DCD 07/15 PO 0941 Verapamil HCl 240 MG DAILY 07/13 999 DCD 07/15 PO 0941 Vital Signs & I&O Last 24 Hrs of Vitals and I&O: Vital Signs Date Time Temp Pulse Resp B/P B/P Pulse O2 O2 Flow FiO2 Mean Ox Delivery Rate 07/15 0905 96 Room Air Room Air 07/15 0800 95 Room Air 07/15 0708 98.3 66 18 112/64 93 07/15 0000 97 Room Air 07/14 2214 98.3 70 19 110/70 97 Room Air 07/14 1851 96 Room Air 07/14 1448 98.0 74 20 106/68 97 Room Air Intake & Output 07/15 1600 07/15 0800 07/15 0000 Intake Total 810 240 Output Total Balance 810 240 Intake, IV 10 Intake, Oral 800 240 Number 1 0 Bowel Movements Impression/Plan Impression/Plan Impression/Plan: CT chest IMPRESSION: 1. No evidence of pulmonary tumor, active pneumonia or lymphadenopathy. 2. There are some endobronchial secretions located in the right lung apex and medial right lower lobe, probably secondary to mild airway inflammation. 3. Mild ectasia of the ascending thoracic aorta (4.1 cm AP diameter). 4. Left diaphragm is chronically elevated and produces compressive atelectasis at the base of the left lower lobe and lingula. 5. Small, sliding-type hiatal hernia. DICTATED BY: Reji Rao MD DATE/TIME DICTATED:07/13/171118 Physical Exam General Appearance Alert, Oriented X3, Cooperative Skin No Rashes, No Breakdown HEENT Atraumatic, PERRLA, EOMI, dry mucous membranes, dilated pupils Neck Supple, No JVD, No thryomegaly Lymphatic Cervical nl Cardiovascular Regular Rate, Normal S1, Normal S2 Lungs decreased air movement in bilateral lung ray with audible wheezing Abdomen Normal Bowel Sounds, Soft, No Tenderness Extremities No Clubbing, No Cyanosis, No Edema, Normal Pulses IMPRESSION 62-year-old female with a past medical history of morbid obesity, may mild asthma, major anxiety, bipolar disorder with significant vocal cord dysfunction, migraines, IBS, GERD, hypothyroidism, urinary incontinence, hyperlipidemia, Parkinson like features now with Bronchitis Mild asthma with mild chronic obstructive pulmonary disease. 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 atx with pna * Large paraesophageal hernia with recurrent asp from gerd pt s/p rene fundoplication many yrs ago, which is causing the issue * VC dysfucntion mainly psycogenic * Morbid obesity with JESUS on cpap not too compliant * Sig psychiatric issues needs agg rx REC Reduce steroid to 30 mg Needs a longer steroid taper, and however she does get prednisone from multiple providers and this has been difficult to attain PO azitro daily and upon dc 250 q0d Will eval and see if would benefit from Il-5 antibody injections in the future COnt inhalers / singulair etc Keep hob up cont sucralfate COnt ppi cont other meds WIll follow Ok to dc
--- NOTE | 2017-07-15 17:54 | Admission Certification ---
Admission Certification Certification Statement - As attending physician, I certify that at the time of - admission, based on clinical presentation, severity of - symptoms, need for further diagnostic testing and - therapeutic interventions, and risk of adverse outcomes - without in-hospital treatment, in my clinical assessment, - this patient requires an acute hospital stay for a minimum - of two nights or longer. I have also considered psychsocial - factors such as support system, advanced age, financial - issues, cognitive issues, and failed out-patient treatments, - past re-admission history, safety of patient, and lack of - compliance as applicable. Specific rationale supporting this admission is: COPD exacerbation
== END 2017-07-15 13:22 | disposition home health service (06) | DRG 191 ==
LOC: ERH 19:49 → 2NB 22:44 → ERHI 22:44 → ENRESERV 07-13 13:10 → ENTRNSPT 07-13 13:51 → EDTRNSPTSTS 07-13 14:09 → 2NB 07-13 14:14 → CMPTRNSPT 07-13 14:24 → ENPENDDIS 07-15 09:39 → ENTRNSPT 07-15 13:09 → EDTRNSPTSTS 07-15 13:16 → 2NB 07-15 13:22 → CMPTRNSPT 07-15 13:29
PROVIDERS: Pediatrics; Student in an Organized Health Care Education/Training Program
DX: J44.1 Chronic obstructive pulmonary disease with (acute) exacerbation (principal); Z68.41 Body mass index [BMI] 40.0-44.9, adult; E66.01 Morbid (severe) obesity due to excess calories; G20 Parkinson's disease; E87.0 Hyperosmolality and hypernatremia; Z87.891 Personal history of nicotine dependence; J98.6 Disorders of diaphragm; K44.9 Diaphragmatic hernia without obstruction or gangrene; F31.9 Bipolar disorder, unspecified; E86.0 Dehydration; G47.33 Obstructive sleep apnea (adult) (pediatric); F41.9 Anxiety disorder, unspecified; K58.9 Irritable bowel syndrome, unspecified; K21.9 Gastro-esophageal reflux disease without esophagitis; G43.909 Migraine, unspecified, not intractable, without status migrainosus; Z91.19 Patient's noncompliance with other medical treatment and regimen; Z79.52 Long term (current) use of systemic steroids
CPT/HCPCS: 2NBP; ERO; 36415; 71045; 82436; 87040; 87070; 87804; 87804-59; 93005; 93010; 93306; 96374; 96375; J0401; J0456; J1650; J2920; J3490; J7512

== ENCOUNTER 2018-01-05 10:02 | Emergency (ER) | payer OTHER ==
[~2018-01-05] VITALS: Ht 157.5 cm; Wt 94.8 kg
[2018-01-05 11:52] LABS: ABSOLUTE BASOPHIL COUNT 0 /CUMM (0.0-0.2); ABSOLUTE EOSINOPHIL COUNT 0.4 /CUMM (0.0-0.7); ABSOLUTE GRANULOCYTE CT 4.2 /CUMM (1.4-6.5); ABSOLUTE LYMPH COUNT 2.3 /CUMM (1.2-3.4); ABSOLUTE MONOCYTE COUNT 0.7 /CUMM (0.10-0.60); BASOPHIL % 0.4 % (0.0-2.0); GRANULOCYTE % 55.6 % (42.2-75.2); HEMATOCRIT 36.5 % (37-47); MEAN CORPUSCULAR HGB 25.9 PG (27.0-31.0); MEAN CORPUSCULAR HGB CONC 32.2 G/DL (33.0-37.0); MEAN CORPUSCULAR VOLUME 80.3 FL (81.0-99.0); MEAN PLATELET VOLUME 9.3 FL (7.4-10.4); PLATELET COUNT 244 /CUMM (130-400); RBC DISTRIBUTION WIDTH 20.5 % (11.5-14.5); RED BLOOD CELL CT 4.55 /CUMM (4.20-5.40); WHITE BLOOD CELL COUNT 7.6 /CUMM (4.8-10.8)
--- NOTE | 2018-01-05 12:16 | RADIOLOGY REPORT ---
EXAMINATION: XR CHEST CLINICAL INFORMATION: Shortness of breath. Chest pain. COMPARISON: Multiple priors, most recently CT performed 07/13/2017 TECHNIQUE: 2 views of the chest were obtained. FINDINGS: Mild elevation of the left hemidiaphragm, unchanged. No consolidation, edema, or effusion. No pneumothorax. The cardiomediastinal silhouette is within normal limits. No acute osseous abnormality. IMPRESSION: No acute pulmonary finding.
--- NOTE | 2018-01-05 13:09 | ED GENERAL ADULT ---
History of Present Illness General Chief Complaint: Chest Pain Stated Complaint: SENT IN BY [facility] FOR CP Source: patient Exam Limitations: no limitations Vital Signs & Intake/Output Vital Signs & Intake/Output Vital Signs Date Time Temp Pulse Resp B/P B/P Pulse O2 O2 Flow FiO2 Mean Ox Delivery Rate 01/05 1445 98.1 68 18 114/56 97 Room Air 01/05 1221 97.8 66 19 134/60 99 Room Air 01/05 1220 Room Air 01/05 1015 98.1 77 15 133/86 97 Room Air Room Air Allergies Coded Allergies: peanut (Severe, TONGUE SWELLING, DIFFICULTY BREATHING 01/05/18) pear (Severe, ANAPHYLAXIS 01/05/18) pepper (Severe, PEPPERS - TONGUE SWELLS 01/05/18) walnut (Severe, DIFFICULTY BREATHING 01/05/18) cefazolin (UNKNOWN 01/05/18) cefuroxime (UNKNOWN 01/05/18) ciprofloxacin (ITCHING WITH IV CIPRO ONLY-PT ABLE TO TAKE ORAL 01/05/18) clavulanic acid (From Augmentin) (HIVES, RASH 01/05/18) erythromycin base (From Erythrocin) (RASH 01/05/18) neomycin (UNKNOWN 01/05/18) penicillin V (UNKNOWN 01/05/18) polymyxin B (HIVES 01/05/18) quetiapine (From Seroquel) (BRIGHT RED & ITCHY 01/05/18) wheat (WHEAT SPROUTS - ITCHY 01/05/18) chocolate flavor (CHOCOLATE - MIGRAINS 01/05/18) lactose (DIARRHEA 01/05/18) Reconcile Medications Albuterol Sulfate (Ventolin Hfa) 90 MCG HFA.AER.AD 2 PUF INH 4XDAILY ASTHMA ( Reported) Aripiprazole (Abilify) 10 MG TABLET 1 TAB PO DAILY MENTAL HEALTH (Reported) Azithromycin 250 MG TABLET 1 TAB PO Q48 COPD TAKE ONE TAB EVERY OTHER DAY . Benzonatate (Tessalon Perle) 100 MG CAPSULE 1 CAP PO TID PRN COUGH Budesonide/Formoterol Fumarate (Symbicort 160-4.5 Mcg Inhaler) 160 MCG-4.5 MCG/ ACTUATION HFA.AER.AD 2 PUF INH BID COPD (Reported) Carbidopa/Levodopa (Carbidopa-Levodopa 25-100 Tab) 25 MG-100 MG TABLET 1 TAB PO TID Parkinsons (Reported) Clonazepam 0.5 MG TABLET 1 TAB PO TID ANXIETY (Reported) Fluticasone Propionate 50 MCG/ACTUATION SPRAY.SUSP 2 SPRAY NASB DAILY ALLERGIES (Reported) Furosemide (Lasix) 40 MG TABLET 1 TAB PO DAILY SWELLING Levalbuterol HCl (Xopenex) 0.63 MG/3 ML VIAL.NEB 1 Vial INH/DOMINGA TID PRN SHORTNESS OF BREATH Levothyroxine Sodium 88 MCG TABLET 1 TAB PO DAILY AC THYROID (Reported) Mirabegron (Myrbetriq) 50 MG TAB.ER.24H 1 TAB PO DAILY URINARY INCONTINENCE ( Reported) Mirtazapine 15 MG TABLET 1 TAB PO QPM SLEEP (Reported) Montelukast Sodium (Singulair) 10 MG TABLET 1 TAB PO DAILY ASTHMA (Reported) Omeprazole 20 MG CAPSULE.DR 1 TAB PO DAILY AC STOMACH . Ondansetron HCl (Zofran) 4 MG TABLET 1 TAB PO Q6-8P PRN NAUSEA Prednisone 10 MG TABLET 1 TAB PO DAILY COPD PLease Take 3 tabs on 07/16 Take 2 tabs on 07/17, 07/18, 07/19 Take 1 tab on 07/20, 07/21, 07/22 THEN CONTINUE ON 5 MG DAILY YOUR HOME DOSE. Promethazine HCl/Codeine (Promethazine-Codeine Syrup) 6.25 MG-10 MG/5 ML SYRUP 5 ML PO Q4-6 PRN COUGH ONE HUNDRED TWENTY CC'S, [id number] Ranitidine HCl (Zantac) 300 MG TABLET 1 TAB PO BID GI (Reported) Rosuvastatin Calcium (Crestor) 10 MG TABLET 1 TAB PO DAILY CHOL (Reported) Sertraline HCl 50 MG TABLET 1 TAB PO DAILY MENTAL HEALTH (Reported) Sucralfate (Carafate) 1 GRAM TABLET 1 TAB PO BID PRN GI (Reported) Tiotropium Br/Olodaterol HCl (Stiolto Respimat Inhal Waldron) 2.5 MCG-2.5 MCG/ ACTUATION MIST.INHAL 2 PUFF INH QAM ASTHMA (Reported) Topiramate (Topamax) 100 MG TABLET 1 TAB PO BID MIGRAINES (Reported) Verapamil HCl (Verapamil ER) 240 MG TABLET.ER 1 TAB PO DAILY migraines ( Reported) Triage Note: PT ADVISED TO ED BY DR. HICKS'S OFFICE FOR 3 EPISODES OF CHEST SQUEEZING SENSATION LAST NIGHT WHILE AT REST. DENIES ACTIVE SQUEEZING FEELING NOW, BUT DOES REPORTS SOME DISCOMFORT. REPORTS SOME SOB WHILE AT REST AND WITH EXERTION. ALSO REPORTS DIZZINESS WITH POSITION CHANGES. Triage Nurses Notes Reviewed? yes Onset: Abrupt Duration: day(s): Timing: intermittent HPI: 62-year-old female with a history of migraines, Parkinson's, hyperlipidemia, asthma, COPD, anxiety, depression, bipolar disorder presenting with chest pain 3 days. Patient reports one episode of chest pain 3 days ago while she was laying in bed, felt a squeezing substernal sensation that lasted 2-3 seconds before self resolving. Reports another 2 episodes of chest pain yesterday while she was sitting at her computer desk, states that the episodes were similar, she experienced a substernal squeezing sensation that lasted 2-3 seconds before self resolving. Has had no recurrent chest pain since. No prior cardiac history, had normal stress testing 1-2 years ago. Denies any chest trauma or strenuous activity. Denies associated diaphoresis, shortness of breath, nausea, vomiting, leg swelling, palpitations. No personal/family history of blood clots, no recent surgery/travel, no hormone use, no cough, hemoptysis. (Karlee LOZANO,Iliana) Past History Travel History Traveled to [place] past 21 day No Medical History Any Pertinent Medical History? see below for history Neurological: migraine, Parkinson's disease EENT: glaucoma Cardiovascular: hyperlipidemia Respiratory: asthma, COPD, emphysema, pneumonia Gastrointestinal: diverticulitis, GERD, hiatal hernia, irritable bowel syndrome Hepatic: NONE Renal: NONE Musculoskeletal: falls, right rotator cuff tendonitis ARTHRITIS Psychiatric: anxiety, bipolar disease, depression Endocrine: hypothyroidism Blood Disorders: NONE Cancer(s): NONE MECH[employer]ICAL [employer]OP [employer]ER/Reproductive: NONE History of MRSA: No History of VRE: Yes History of CDIFF: No Influenza Vaccine: 05/16/17 Tetanus Vaccine: 12/22/13 Surgical History Surgical History: appendectomy, cholecystectomy, hysterectomy, right shoulder rotator cuff repair hiatal hernia surgery right ankle broken CATARAC Psychosocial History Who do you live with Family Services at Home None What is your primary language Hungarian Tobacco Use: Quit >30 days ago ETOH Use: denies use Illicit Drug Use: denies illicit drug use Family History Family History, If Any: MOTHER FH: myocardial infarction FATHER FH: CAD (coronary artery disease) FH: diabetes mellitus FH: HTN (hypertension) FH: stroke Hx Contributory? No (Iliana Rodriguez) Review of Systems Review of Systems Constitutional: Reports: no symptoms. EENTM: Reports: no symptoms. Respiratory: Reports: no symptoms. Cardiovascular: Reports: see HPI. GI: Reports: no symptoms. Genitourinary: Reports: no symptoms. Musculoskeletal: Reports: no symptoms. Skin: Reports: no symptoms. Neurological/Psychological: Reports: no symptoms. Hematologic/Endocrine: Reports: no symptoms. Immunologic/Allergic: Reports: no symptoms. (Iliana Rodriguez) Physical Exam Physical Exam General Appearance: well developed/nourished, no apparent distress, alert, awake , comfortable Head: atraumatic, normal appearance Eyes: Bilateral: normal appearance. Neck: normal inspection Respiratory: normal breath sounds, lungs clear, tenderness to palpation over the left chest wall and sternum, no ecchymosis or signs of trauma Cardiovascular: regular rate/rhythm Gastrointestinal: soft, non-tender Back: normal inspection Extremities: normal inspection Neurologic/Psych: awake, alert, oriented x 3, normal gait, normal mood/affect Skin: intact, normal color, warm/dry Core Measures ACS in differential dx? No CVA/TIA Diagnosis: No Sepsis Present: No Sepsis Focused Exam Completed? No (Iliana Rodriguez) Progress Differential Diagnoses I considered the following diagnoses in my evaluation of the patient: [ Musculoskeletal strain versus costochondritis versus rib fracture, low concern for ACS versus PE versus pneumothorax versus aortic dissection versus pericarditis versus Boerhaave] Plan of Care: Orders Procedure Date/time Status Regular Diet 01/05 D Active TROPONIN LEVEL 01/05 1115 Complete COMPREHENSIVE METABOLIC PANEL 01/05 1115 Complete CBC WITHOUT DIFFERENTIAL 01/05 1115 Complete EKG 01/05 1002 Active Laboratory Tests 01/05/18 1147: Anion Gap 13, Estimated GFR > 60, BUN/Creatinine Ratio 21.4, Glucose 83, Calcium 9.9, Total Bilirubin 0.3, AST 19, ALT 29, Alkaline Phosphatase 98, Troponin I < 0.01, Total Protein 6.8, Albumin 4.2, Globulin 2.6, Albumin/Globulin Ratio 1.6, CBC w Diff NO MAN DIFF REQ, RBC 4.55, MCV 80.3 L, MCH 25.9 L, MCHC 32.2 L, RDW 20.5 H, MPV 9.3, Gran % 55.6, Lymphocytes % 30.4, Monocytes % 8.6, Eosinophils % 5.0, Basophils % 0.4, Absolute Granulocytes 4.2, Absolute Lymphocytes 2.3, Absolute Monocytes 0.7 H, Absolute Eosinophils 0.4, Absolute Basophils 0 EKG is nonischemic, troponin negative. Chest x-ray unremarkable. Labs show mild anemia, also with mild hypoNa and hypoCl that is likely consistent with dehydration. Patient rehydrated with a liter of NS. Patient was given a dose of Toradol for questionable chest wall pain, although she has denied any chest pain throughout her ED stay. Discussed with Dr. Bauer, second troponin is not indicated at this time as patient has been chest pain-free for 12-24 hours. Cleared for discharge home and will follow up with Dr. Bauer. Given strict return precautions. Initial ED EKG: NSR, no ST T wave changes (Iliana Rodriguez) Departure Departure Disposition: HOME OR SELF CARE Condition: Stable Clinical Impression Primary Impression: Chest pain Referrals: Lb Marshall MD (PCP/Family) Additional Instructions: Use ibuprofen as needed for pain. Follow-up with Dr. Bauer for reevaluation. Return to the emergency department for any new or worsening symptoms. Departure Forms: Customer Survey General Discharge Information (Iliana Rodriguez) PA/SENIOR APPLICATIONS DEVELOPER Co-Sign Statement Statement: ED Attending supervision documentation- x I saw and evaluated the patient. I have also reviewed all the pertinent lab results and diagnostic results. I agree with the findings and the plan of care as documented in the PA's/SENIOR APPLICATIONS DEVELOPER's documentation. [] I have reviewed the ED Record and agree with the PA's/SENIOR APPLICATIONS DEVELOPER's documentation. [] Additions or exceptions (if any) to the PAs/SENIOR APPLICATIONS DEVELOPER's note and plan are summarized below: [] (Jihan BARRETO,Ed) Critical Care Note Critical Care Note Critical Care Time: non-applicable (Iliana Rodriguez)
[2018-01-05 14:45] VITALS: BP 114/56
== END 2018-01-05 14:47 ==
LOC: ERH 10:02
PROVIDERS: Physician Assistant Medical
DX: R07.9 Chest pain, unspecified (principal)
CPT/HCPCS: 71046; 93005; 93010; 96374; 96375; J1885; J2765